=== PATIENT | female | born 1950 | race African-American/Black ===

== ENCOUNTER → 2017-06-13 | Outpatient (CLI) | payer MEDICARE, OTHER | END | disposition home or self-care (01) | LOC: KCIC MRI 09:49 | DX: S46.211A Strain of muscle, fascia and tendon of other parts of biceps, right arm, initial encounter (principal); S46.011A Strain of muscle(s) and tendon(s) of the rotator cuff of right shoulder, initial encounter; M19.011 Primary osteoarthritis, right shoulder; M25.411 Effusion, right shoulder; R60.0 Localized edema; Z91.81 History of falling | CPT/HCPCS: 73221 ==

== ENCOUNTER → 2018-07-31 | Outpatient (CLI) | payer MEDICARE, OTHER ==
[2015-05-23 11:15] VITALS: BP 157/89
[~2018-07-31] MED LIST: ALPR0.5T PO; ALPR0.5T6 PO; ASPI-482 PO; CITA20TA6 PO; ENAL20TA PO; HYDR-2765 PO; METO-239 PO; SIMV40TA3 PO
--- NOTE | 2018-07-31 18:00 | RAD ---
3 view study of the right knee Clinical indications: Osteoarthritis. Chronic right knee pain. FINDINGS: No acute fracture or dislocation or lytic process is seen. There is moderate degenerative spurring and mild joint space narrowing of the medial tibiofemoral joint compartment. There is moderate degenerative spurring and mild joint space narrowing of the patellofemoral joint compartment. There is moderate spurring of the lateral tibiofemoral joint compartment without joint space narrowing. Small right knee joint effusion is seen. IMPRESSION: Tricompartmental primary degenerative osteoarthritis of the right knee. Electronically signed by: Tirso Ventura MD (07/31/2018 5:57 PM) [place] [id number]
== END | disposition home or self-care (01) ==
LOC: RAD 11:56
PROVIDERS: ATTEND Internal Medicine
DX: M25.461 Effusion, right knee (principal); M17.11 Unilateral primary osteoarthritis, right knee; M76.891 Other specified enthesopathies of right lower limb, excluding foot
CPT/HCPCS: 73562

== ENCOUNTER 2020-02-01 14:42 | Emergency (ER) | payer MEDICARE, OTHER ==
[~2020-02-01] VITALS: Ht 157.5 cm; Wt 95.0 kg
[~2020-02-01 14:42] MED LIST changes: -ENAL20TA PO; +ENAL20TA10 PO; +SIMV40TA18 PO; -SIMV40TA3 PO
[2020-02-01] MEDS ORDERED: ASPIRIN 325 MG TABLET PO ONE (15:15)
[2020-02-01 15:20] LABS: BASO % 1 % (0-3); EOS # 0.2 x10^3/uL (0.0-0.7); EOS % 4 % (0-3); HEMOGLOBIN 12.3 g/dL (12.0-15.5); LYMPH # 1.9 x10^3/uL (1.0-4.8); LYMPH % 35 % (24-48); MEAN CORPUSCULAR HEMOGLOBIN 27 pg (25-35); MEAN CORPUSCULAR HGB CONC 32 g/dL (31-37); MEAN CORPUSCULAR VOLUME 82 fL (79-100); MONO # 0.6 x10^3/uL (0.0-1.1); MONO % 11 % (0-9); NEUT # 2.7 x10^3/uL (1.8-7.7); NEUT % 50 % (31-73); PLATELET COUNT 209 x10^3/uL (140-400); RED BLOOD COUNT 4.64 x10^6/uL (3.50-5.40); RED CELL DISTRIBUTION WIDTH 15.1 % (11.5-14.5); WHITE BLOOD COUNT 5.5 x10^3/uL (4.0-11.0)
[2020-02-01 15:49] LABS: CREATININE 1.6 mg/dL (0.6-1.0); GFR 38.8; POTASSIUM 3.9 mmol/L (3.5-5.1)
[2020-02-01 15:54] LABS: ALBUMIN 3.6 g/dL (3.4-5.0); ALBUMIN/GLOBULIN RATIO 0.9 (1.0-1.7); TOTAL BILIRUBIN 0.3 mg/dL (0.2-1.0); TOTAL PROTEIN 7.7 g/dL (6.4-8.2)
--- NOTE | 2020-02-01 15:58 | PHYS DOC ---
Past Medical History Past Medical History: High Cholesterol, Hypertension, [place] Past Surgical History: Knee Replacement, Other Additional Past Surgical Histo: cardiac balloon, left knee replacement, rotator cuff surgery Smoking Status: Former Smoker Alcohol Use: None Drug Use: None General Adult EDM: Chief Complaint: CHEST PAIN HPI: HPI: Patient is a 69 year old female who presents with chest pain that has been getting worse for a few days. Pt states that is hard to lay down because the pain is worse. Pt has had indigestion in the past and this does feel similar. Pt also states that the pain is worse with walking up steps and she also gets short of breath with it. The pain is also associated with tingling in the left arm to elbow and bilateral distal lower extremity. Pt also states that she missed 2 days of metoprolol and benazepril on Saturday and Saturday. Pt also complains of periodic blurry vision. Review of Systems: Review of Systems: Constitutional: Denies fever or chills Eyes: Denies redness or eye pain HENT: Denies nasal congestion or sore throat Respiratory: Denies cough or wheezing Cardiovascular: Denies palpitations, endorses chest pain GI: Denies abdominal pain, nausea, or vomiting : Denies dysuria or hematuria Musculoskeletal: Denies back pain or joint pain Integument: Denies rash or skin lesions Neurologic: Denies headache, focal weakness or sensory changes Complete systems were reviewed and found to be within normal limits, except as documented in this note. Heart Score: HEART Score for Chest Pain: HEART Score for Chest Pain Response (Comments) Value History Moderately Suspicious 1 ECG Normal 0 Age > 65 2 Risk Factors >3 Risk Factors or Hx CAD 2 Troponin < Normal Limit 0 Total 5 Risk Factors: Risk Factors: HTN, HLP, family history of CAD, obesity. Risk Scores: Score 0 - 3: 2.5% MACE over next 6 weeks - Discharge Home Score 4 - 6: 20.3% MACE over next 6 weeks - Admit for Clinical Observation Score 7 - 10: 72.7% MACE over next 6 weeks - Early Invasive Strategies Current Medications: Current Medications Medications (Trade) Dose Ordered Sig/Jennifer Start Time Stop Time Status Last Admin Dose Admin Aspirin (Willie Aspirin) 325 mg 1X ONCE 02/01/20 15:15 02/01/20 15:16 DC Allergies: Allergies: Allergies Coded Allergies Type Severity Reaction Last Updated Verified No Known Drug Allergies 02/01/20 No Physical Exam: PE: Constitutional: Well developed, well nourished, no acute distress, non-toxic appearance HENT: Normocephalic, atraumatic Eyes: Conjunctiva normal, no discharge Neck: Normal range of motion, no tenderness, supple Lungs & Thorax: No respiratory distress, equal chest rise and fall Abdomen: Soft, no tenderness Skin: Warm, dry, no erythema, no rash Back: No tenderness, no CVA tenderness Extremities: No tenderness, ROM intact, no edema Neurologic: Alert and oriented X 3, normal motor function, normal sensory function, no focal deficits noted Psychologic: Affect normal, judgment normal Cardiac: RRR w/ no murmurs, rubs, or gallops Current Patient Data: Labs: Laboratory Tests Test 02/01/20 15:05 White Blood Count 5.5 x10^3/uL (4.0-11.0) Red Blood Count 4.64 x10^6/uL (3.50-5.40) Hemoglobin 12.3 g/dL (12.0-15.5) Hematocrit 38.0 % (36.0-47.0) Mean Corpuscular Volume 82 fL (79-100) Mean Corpuscular Hemoglobin 27 pg (25-35) Mean Corpuscular Hemoglobin Concent 32 g/dL (31-37) Red Cell Distribution Width 15.1 % (11.5-14.5) H Platelet Count 209 x10^3/uL (140-400) Neutrophils (%) (Auto) 50 % (31-73) Lymphocytes (%) (Auto) 35 % (24-48) Monocytes (%) (Auto) 11 % (0-9) H Eosinophils (%) (Auto) 4 % (0-3) H Basophils (%) (Auto) 1 % (0-3) Neutrophils # (Auto) 2.7 x10^3/uL (1.8-7.7) Lymphocytes # (Auto) 1.9 x10^3/uL (1.0-4.8) Monocytes # (Auto) 0.6 x10^3/uL (0.0-1.1) Eosinophils # (Auto) 0.2 x10^3/uL (0.0-0.7) Basophils # (Auto) 0.0 x10^3/uL (0.0-0.2) Activated Partial Thromboplast Time 28 SEC (24-38) Laboratory Tests 02/01/20 15:05 Vital Signs: Vital Signs Date Time Temp Pulse Resp B/P (MAP) Pulse Ox O2 Delivery O2 Flow Rate FiO2 02/01/20 14:56 99.3 69 24 127/62 (83) 97 Room Air 99.3 EKG: EKG: @14:55 normal sinus rhythm with a rate of 65, T wave inversion in 3, QRS: 72ms QT/QTc: 376/404ms Radiology/Procedures: Radiology/Procedures: PROCEDURE: CHEST AP ONLY EXAM: CHEST 1 VIEW History: Left-sided chest pain COMPARISON: 05/22/2015 TECHNIQUE: Single portable radiograph of the chest FINDINGS: The cardiac silhouette is unremarkable. The lungs are clear bilaterally. The costophrenic sulci are clear and well demarcated. IMPRESSION: No radiographic evidence of an acute cardiopulmonary process. Electronically signed by: Gian Blue MD (02/01/2020 4:10 PM) [id number] Course & Med Decision Making: Course & Med Decision Making Pertinent Labs and Imaging studies reviewed. (See chart for details) 69 yo female presents with chest pain that has been getting worse for a few days. labs have been reviewed and posted. ECG and 2 troponins did not demonstrate any acute cardiac changes. Pt was offered to be admitted for further evaluation due to several risk factors but she declined. Patient stable for discharge with outpatient follow-up with PCP. Discussed findings and plan with patient, who acknowledges understanding and agreement. Taylor Disclaimer: Dragyifan Disclaimer: This electronic medical record was generated, in whole or in part, using a voice recognition dictation system. Departure Departure Impression: Primary Impression: Chest pain Qualified Codes: R07.9 - Chest pain, unspecified Disposition: 01 DC HOME SELF CARE/HOMELESS Condition: STABLE Referrals: MAYRA STRATTON MD (PCP) GRACIELA RINALDI MD, SCOTT S MD Patient Instructions: Chest Pain (Nonspecific), [id number], Gastritis, Adult, [id number] Scripts Famotidine (PEPCID) 20 Mg Tablet 20 MG PO BID, #20 TAB Prov: ANAND ANDERS DO 02/01/20 ANAND ANDERS DO Feb 01, 2020 15:58
[2020-02-01] MEDS ORDERED: FAMOTIDINE 20 MG/2 ML VIAL IVP ONE (16:00)
--- NOTE | 2020-02-01 16:13 | RAD ---
EXAM: CHEST 1 VIEW History: Left-sided chest pain COMPARISON: 05/22/2015 TECHNIQUE: Single portable radiograph of the chest FINDINGS: The cardiac silhouette is unremarkable. The lungs are clear bilaterally. The costophrenic sulci are clear and well demarcated. IMPRESSION: No radiographic evidence of an acute cardiopulmonary process. Electronically signed by: Gian Blue MD (02/01/2020 4:10 PM) [id number]
--- NOTE | 2020-02-01 16:17 | EKG ---
[facility] [address] [place] [address] Test Date: 2020-02-01 Test Time: 14:55:22 Pat Name: PERFECTO SHARMA Department: Room: Gender: F Collector: : 1950 Requested By: ANAND ANDERS Order Number: [id number] Reading MD: Measurements Intervals [place] Rate: 69 P: 38 [place]: 188 QRS: 11 QRSD: 72 T: 14 QT: 376 QTc: 404 Interpretive Statements SINUS RHYTHM QRS(T) CONTOUR ABNORMALITY CONSISTENT WITH INFERIOR INFARCT AGE UNDETERMINED ABNORMAL ECG RI6.01 No previous ECG available for comparison
[2020-02-01 17:24] VITALS: BP 148/78
[2020-02-01] MEDS ORDERED: FAMO-63 PO (17:52)
== END 2020-02-01 18:28 | disposition home or self-care (01) ==
LOC: ER 14:42
DX: R07.89 Other chest pain (principal); R06.02 Shortness of breath; H53.8 Other visual disturbances; E78.00 Pure hypercholesterolemia, unspecified; I10 Essential (primary) hypertension; I25.2 Old myocardial infarction; Z98.890 Other specified postprocedural states; Z87.891 Personal history of nicotine dependence
CPT/HCPCS: 36415; 71045; 80053; 83690; 83735; 83880; 84484; 85025; 85730; 93005; 96374; 99285; J3490

== ENCOUNTER 2021-05-18 18:08 | Inpatient (IN) | payer MEDICARE, OTHER ==
[~2021-05-18] VITALS: Ht 157.5 cm; Wt 94.3 kg
[~2021-05-18 18:08] MED LIST changes: +FAMO-63 PO
--- NOTE | 2021-05-18 18:27 | PHYS DOC ---
Past Medical History Past Medical History: High Cholesterol, Hypertension, [place] Past Surgical History: Hysterectomy, Knee Replacement, Other Additional Past Surgical Histo: cardiac balloon, bilat knee, rotator cuff surgery Smoking Status: Former Smoker Alcohol Use: None Drug Use: None General Adult EDM: Chief Complaint: CHEST PAIN HPI: HPI: Patient is a 71-year-old female who presents to the emergency department for left-sided chest pain that started 15 to 20 minutes prior to ER arrival. Patient describes the pain as a burning and constant pain. She rates it 8 out of 10. No radiation of pain, no treatment of pain. No alleviating or aggravating factors. Patient is also reporting nausea and shortness of breath, denies vomiting. She has a history of chronic chest pain. She reports that she had an episode of chest pain 2 days ago but was not evaluated for it but the chest pain has worsened today. Patient reports that she has had chest pain for "years." Patient reports that her primary care provider never called in and and she does not take nitroglycerin at home. Patient did take an 81 mg aspirin this morning. She has a history of hypertension, high cholesterol, [place]. She is a former smoker. Review of Systems: Review of Systems: Respiratory: See HPI Cardiovascular: See HPI GI: See HPI Heart Score: C/O Chest Pain: Yes HEART Score for Chest Pain: HEART Score for Chest Pain Response (Comments) Value History Moderately Suspicious 1 ECG Nonspecific Repolarizatio 1 Age > 65 2 Risk Factors >3 Risk Factors or Hx CAD 2 Troponin < Normal Limit 0 Total 6 Risk Factors: Risk Factors: DM, Current or recent (<one month) smoker, HTN, HLP, family history of CAD, obesity. Risk Scores: Score 0 - 3: 2.5% MACE over next 6 weeks - Discharge Home Score 4 - 6: 20.3% MACE over next 6 weeks - Admit for Clinical Observation Score 7 - 10: 72.7% MACE over next 6 weeks - Early Invasive Strategies Allergies: Allergies: Allergies Coded Allergies Type Severity Reaction Last Updated Verified No Known Drug Allergies 02/01/20 No Physical Exam: PE: Constitutional: Well developed, well nourished, no acute distress, non-toxic appearance. [] HENT: Normocephalic, atraumatic, bilateral external ears normal, oropharynx moist, no oral exudates, nose normal. [] Eyes: PERRL, EOMI, conjunctiva normal, no discharge. [] Neck: Normal range of motion, no stridor Cardiovascular:Heart rate regular rhythm, no murmur, chest pain not reproducible with palpation [] Lungs & Thorax: Bilateral breath sounds clear to auscultation [] Abdomen: Bowel sounds normal, soft, no tenderness, obese, no masses, no pulsatile masses. [] Skin: Warm, dry, no erythema, no rash. [] Back: Normal range of motion Extremities: No tenderness, no cyanosis, no clubbing, ROM intact, no edema. [] Neurologic: Alert and oriented X 3, normal motor function, normal sensory function, no focal deficits noted. [] Psychologic: Affect normal, judgement normal, mood normal. [] Current Patient Data: Labs: Laboratory Tests Test 05/18/21 18:20 White Blood Count 7.4 x10^3/uL Red Blood Count 5.28 x10^6/uL Hemoglobin 13.9 g/dL Hematocrit 43.7 % Mean Corpuscular Volume 83 fL Mean Corpuscular Hemoglobin 26 pg Mean Corpuscular Hemoglobin Concent 32 g/dL Red Cell Distribution Width 15.0 % Platelet Count 271 x10^3/uL Neutrophils (%) (Auto) 48 % Lymphocytes (%) (Auto) 37 % Monocytes (%) (Auto) 11 % Eosinophils (%) (Auto) 3 % Basophils (%) (Auto) 1 % Neutrophils # (Auto) 3.6 x10^3/uL Lymphocytes # (Auto) 2.8 x10^3/uL Monocytes # (Auto) 0.8 x10^3/uL Eosinophils # (Auto) 0.2 x10^3/uL Basophils # (Auto) 0.1 x10^3/uL Sodium Level 140 mmol/L Potassium Level 5.0 mmol/L Chloride Level 102 mmol/L Carbon Dioxide Level 26 mmol/L Anion Gap 12 Blood Urea Nitrogen 34 mg/dL Creatinine 2.4 mg/dL Estimated GFR (Cockcroft-Gault) 24.1 BUN/Creatinine Ratio 14 Glucose Level 118 mg/dL Calcium Level 8.9 mg/dL Total Bilirubin 0.4 mg/dL Aspartate Amino Transf (AST/SGOT) 11 U/L Alanine Aminotransferase (ALT/SGPT) 17 U/L Alkaline Phosphatase 115 U/L Troponin I High Sensitivity 6 ng/L Total Protein 8.9 g/dL Albumin 4.3 g/dL Albumin/Globulin Ratio 0.9 Current Medications Medications (Trade) Dose Ordered Sig/Jennifer Route PRN Reason Start Time Stop Time Status Last Admin Dose Admin Aspirin (Aspirin Chewable) 324 mg 1X ONCE PO 05/18/21 19:00 05/18/21 19:01 05/18/21 18:30 Nitroglycerin (Nitrostat) 0.4 mg PRN Q5MIN PRN SL CP RATING > 1/10 05/18/21 18:30 05/19/21 18:29 05/18/21 18:29 Vital Signs: Vital Signs Date Time Temp Pulse Resp B/P (MAP) Pulse Ox O2 Delivery O2 Flow Rate FiO2 05/18/21 18:14 98.0 83 28 206/90 (128) 100 Room Air 98.0 EKG: EKG: EKG performed by ER staff at 1812 shows sinus rhythm with a rate of 84, QTC of 426, no STEMI read by Dr. Edward at 1815 [] KG performed by ER staff at 1912 shows sinus rhythm with a rate of 65, QTC of 415, no STEMI read by Dr. Edward at 1928 Radiology/Procedures: Radiology/Procedures: []PROCEDURE: PORTABLE CHEST 1V Exam Date: 05/18/2021 6:27 PM XR CHEST 1V Indication: Reason: chest pain / Spl. Instructions: / History: . Comparison: February 01, 2020 FINDINGS/ IMPRESSION: The aorta is calcified. There is a moderate hiatal hernia. The cardiac silhouette and pulmonary vasculature are within normal limits. There is no focal consolidation, pleural effusion or pneumothorax. The visualized osseous structures are intact. Electronically signed by: Kaylee Yost MD (05/18/2021 7:20 PM) [facility] DICTATED and SIGNED BY: KAYLEE YOST MD DATE: 05/18/[id number] 0 Course & Med Decision Making: Course & Med Decision Making Pertinent Labs and Imaging studies reviewed. (See chart for details) [] Patient presents to the emergency department for left-sided chest pain that started 20 minutes prior to arrival. Patient reports a history of chronic chest pain. She has a history of high cholesterol, hypertension, [place] and is a former smoker. Patient took 81 mg aspirin this morning. Work-up in the ER consisted of blood work, EKG and chest x-ray. Patient treated with aspirin and nitroglycerin. Patient is hypertensive with a blood pressure of 208/90. Patient's heart score is 6. Patient CBC is unremarkable. Patient's BUN is 34, creatinine 2.4. It appears that patient's baseline creatinine is 1.4-1.6 indicating acute kidney injury. Patient does not have an elevated troponin. Patient reports that her chest pain has resolved after treatment with aspirin and nitroglycerin. Patient will need to be admitted to the hospital for chest pain observation with cardiology consultation which was ordered. I discussed patient's findings with her and the family member who is at her bedside and she is agreeable to admission. I discussed patient's case with Dr. Long And he agreed to admit the patient under his services for chest pain and acute kidney injury. Taylor Disclaimer: Taylor Disclaimer: This electronic medical record was generated, in whole or in part, using a voice recognition dictation system. Departure Departure Impression: Primary Impression: Chest pain Qualified Codes: R07.9 - Chest pain, unspecified Additional Impression: SVETLANA (acute kidney injury) Disposition: ADMITTED INPATIENT Admitting Physician: NATE Condition: STABLE Referrals: MAYRA STRATTON MD (PCP) BRAN DIXON APRN May 18, 2021 18:27
[2021-05-18] MEDS ORDERED: NITROGLYCERIN SUBLINGUAL 0.4 MG BOTTLE OF 25. SL PRN ×3 (18:30→19:30)
[2021-05-18 18:32] LABS: BASO # 0.1 x10^3/uL (0.0-0.2); BASO % 1 % (0-3); EOS # 0.2 x10^3/uL (0.0-0.7); EOS % 3 % (0-3); HEMATOCRIT 43.7 % (36.0-47.0); HEMOGLOBIN 13.9 g/dL (12.0-15.5); LYMPH # 2.8 x10^3/uL (1.0-4.8); LYMPH % 37 % (24-48); MEAN CORPUSCULAR HEMOGLOBIN 26 pg (25-35); MEAN CORPUSCULAR HGB CONC 32 g/dL (31-37); MEAN CORPUSCULAR VOLUME 83 fL (79-100); MONO # 0.8 x10^3/uL (0.0-1.1); MONO % 11 % (0-9); NEUT # 3.6 x10^3/uL (1.8-7.7); NEUT % 48 % (31-73); PLATELET COUNT 271 x10^3/uL (140-400); RED BLOOD COUNT 5.28 x10^6/uL (3.50-5.40); WHITE BLOOD COUNT 7.4 x10^3/uL (4.0-11.0)
[2021-05-18 18:40] LABS: CALCIUM 8.9 mg/dL (8.5-10.1); CREATININE 2.4 mg/dL (0.6-1.0); GFR 24.1
[2021-05-18 18:46] LABS: ALBUMIN 4.3 g/dL (3.4-5.0); ALBUMIN/GLOBULIN RATIO 0.9 (1.0-1.7); TOTAL BILIRUBIN 0.4 mg/dL (0.2-1.0); TOTAL PROTEIN 8.9 g/dL (6.4-8.2)
[2021-05-18] MEDS ORDERED: ASPIRIN CHEWABLE 81 MG TABLET. PO ONE (19:00)
[2021-05-18] MEDS ORDERED: MORPHINE SULFATE 2 MG/ML INJ. IVP PRN (19:15)
--- NOTE | 2021-05-18 19:22 | RAD ---
Exam Date: 05/18/2021 6:27 PM XR CHEST 1V Indication: Reason: chest pain / Spl. Instructions: / History: . Comparison: February 01, 2020 FINDINGS/ IMPRESSION: The aorta is calcified. There is a moderate hiatal hernia. The cardiac silhouette and pulmonary vasculature are within normal limits. There is no focal consolidation, pleural effusion or pneumothorax. The visualized osseous structures are intact. Electronically signed by: Robin Yost MD (05/18/2021 7:20 PM) [place]
[2021-05-18] MEDS ORDERED: ZOLPIDEM 5 MG TABLET. PO PRN (19:30)
[2021-05-18] MEDS ORDERED: ELECTROLYTE (NON-ICU) PROTOCOL. MC PRN (19:30)
[2021-05-18] MEDS ORDERED: ONDANSETRON PF 4 MG/2 ML VIAL. IVP PRN (19:30)
[2021-05-18] MEDS ORDERED: ACETAMINOPHEN 325 MG TABLET. PO PRN (19:30)
[2021-05-18] MEDS ORDERED: HYDROcodone/APAP 7.5/325MG 1 TAB TABLET PO PRN (19:30)
[2021-05-18] MEDS ORDERED: oxyCODONE/APAP 5/325 1 TAB TABLET PO PRN ×2 (19:30)
[2021-05-18 20:17] VITALS: BP 154/72
[2021-05-18] MEDS: SENNOSIDES/DOCUSATE 8.6/50MG TABLET. PO SCH (21:00)
[2021-05-18] MEDS ORDERED: SIMVASTATIN 40 MG TABLET. PO SCH (21:00)
[2021-05-18] MEDS ORDERED: CELE200C PO (21:18)
[2021-05-18] MEDS ORDERED: ASPI-630 PO (21:18)
[2021-05-18] MEDS ORDERED: FLUT9.9S NS (21:18)
[2021-05-18] MEDS ORDERED: ROSU10TA26 PO (21:18)
[2021-05-18] MEDS ORDERED: SOLI10TA2 PO (21:18)
[2021-05-18] MEDS: FAMOTIDINE 20 MG TABLET. PO SCH (21:41)
[2021-05-18] MEDS: ALPRAZolam 0.5 MG TABLET PO SCH (21:41)
[2021-05-18] MEDS: HEPARIN for SUB-Q USE 5,000 UNIT/ML VIAL. SQ SCH (21:44)
[2021-05-18 23:29] VITALS: BP 127/62
[2021-05-19 03:05] VITALS: BP 134/59
[2021-05-19 04:50] LABS: BASO % 1 % (0-3); EOS # 0.2 x10^3/uL (0.0-0.7); EOS % 3 % (0-3); HEMATOCRIT 36.1 % (36.0-47.0); HEMOGLOBIN 11.7 g/dL (12.0-15.5); LYMPH # 2.4 x10^3/uL (1.0-4.8); LYMPH % 41 % (24-48); MEAN CORPUSCULAR HEMOGLOBIN 27 pg (25-35); MEAN CORPUSCULAR HGB CONC 32 g/dL (31-37); MEAN CORPUSCULAR VOLUME 83 fL (79-100); MONO # 0.5 x10^3/uL (0.0-1.1); MONO % 10 % (0-9); NEUT # 2.6 x10^3/uL (1.8-7.7); NEUT % 46 % (31-73); PLATELET COUNT 214 x10^3/uL (140-400); RED BLOOD COUNT 4.37 x10^6/uL (3.50-5.40); WHITE BLOOD COUNT 5.7 x10^3/uL (4.0-11.0)
[2021-05-19 05:12] LABS: ALBUMIN 3.5 g/dL (3.4-5.0); CALCIUM 8.6 mg/dL (8.5-10.1); CREATININE 2.3 mg/dL (0.6-1.0); GFR 25.4; POTASSIUM 5.8 mmol/L (3.5-5.1); TOTAL BILIRUBIN 0.2 mg/dL (0.2-1.0); TOTAL PROTEIN 7.1 g/dL (6.4-8.2)
[2021-05-19] MEDS: HEPARIN for SUB-Q USE 5,000 UNIT/ML VIAL. SQ SCH ×3 (06:17→19:35)
[2021-05-19 07:00] VITALS: BP 132/59
--- NOTE | 2021-05-19 07:33 | EKG ---
[facility] [address] [place] [address] Test Date: 2021-05-18 Test Time: 19:13:02 Pat Name: PERFECTO SHARMA Department: Room: [facility] Gender: F Tool Marker: : 1950 Requested By: BRAN DIXON Order Number: [id number] Reading MD: Servando Williamson Measurements Intervals [place] Rate: 65 P: 39 [place]: 200 QRS: 9 QRSD: 80 T: 24 QT: 394 QTc: 415 Interpretive Statements SINUS RHYTHM NON SPECIFIC T WAVE CHANGES Electronically Signed On 05-19-2021 16:29:03 TYING IN MACHINE OPERATOR by Servando Williamson
--- NOTE | 2021-05-19 07:34 | EKG ---
[facility] [address] [place] [address] Test Date: 2021-05-18 Test Time: 18:13:38 Pat Name: PERFECTO SHARMA Department: Room: [facility] Gender: F Information Security: : 1950 Requested By: BRAN DIXON Order Number: [id number] Reading MD: Servando Williamson Measurements Intervals [place] Rate: 84 P: 45 [place]: 194 QRS: 20 QRSD: 76 T: 27 QT: 358 QTc: 426 Interpretive Statements SINUS RHYTHM Electronically Signed On 05-19-2021 16:29:56 CROCHET MACHINE OPERATOR by Servando Williamson
[2021-05-19] MEDS: ALPRAZolam 0.5 MG TABLET PO SCH ×2 (08:00→19:30)
[2021-05-19] MEDS: FAMOTIDINE 20 MG TABLET. PO SCH (08:01)
[2021-05-19] MEDS: ASPIRIN ENTERIC COATED 81 MG TABLET.DR. PO SCH (08:01)
[2021-05-19] MEDS: METOPROLOL SUCC 24HR ER 25 MG TAB.ER.24H. PO SCH (08:01)
[2021-05-19] MEDS: SIMVASTATIN 40 MG TABLET. PO SCH (08:01)
[2021-05-19] MEDS: CITALOPRAM 20 MG TABLET. PO SCH (08:01)
[2021-05-19] MEDS: SENNOSIDES/DOCUSATE 8.6/50MG TABLET. PO SCH ×2 (08:01→19:45)
--- NOTE | 2021-05-19 10:41 | RAD ---
EXAM: RENAL ULTRASOUND CLINICAL HISTORY: Acute renal failure COMPARISON: None available. TECHNIQUE: Grayscale and color Doppler ultrasound examination of the bilateral kidneys and urinary bl adder was performed. FINDINGS: Evaluation of the kidneys is mildly limited due to shadowing from bowel gas. The right kidney measure s approximately 8.4 x 4.5 x 3.7 cm. The left kidney measures approximately 9.1 x 3.5 x 4.7 cm. There is no hydronephrosis. Renal cortical thickness and echogenicity is normal. The bladder is normal. IMPRESSION: No hydronephrosis. Electronically signed by: Sheree Gong MD (05/19/2021 10:38 AM) [id number]
[2021-05-19] MEDS ORDERED: IV NORMAL SALINE 1000ML BAG 1,000 ML IV ONE (10:45)
[2021-05-19 11:00] VITALS: BP 106/59
[2021-05-19 11:25] LABS: BILIRUBIN,URINE NEGATIVE (NEG); CLARITY,URINE CLEAR; COLOR,URINE YELLOW; PH,URINE 6.5 (<5.0-8.0); PROTEIN,URINE NEGATIVE (NEG-TRACE); UROBILINOGEN,URINE 0.2 mg/dL (0.2 mg/dL)
[2021-05-19 11:26] LABS: NITRITE,URINE NEGATIVE (NEG)
[2021-05-19 11:29] LABS: RBC,URINE 0 /HPF (0-2)
[2021-05-19 11:30] LABS: BACTERIA,URINE 0 /HPF (0-FEW)
--- NOTE | 2021-05-19 12:34 | PDOC1 ---
History and Physical Date of Admission Date of Admission DATE: 05/19/21 TIME: 12:32 History of Present Illness History of Present Illness Patient is a 71-year-old female who presents to the emergency department for left-sided chest pain that started 15 to 20 minutes prior to ER arrival. Patient describes the pain as a burning and constant pain. She rates it 8 out of 10. No radiation of pain, no treatment of pain. No alleviating or aggravating factors. Patient is also reporting nausea and shortness of breath, denies vomiting. She has a history of chronic chest pain. She reports that she had an episode of chest pain 2 days ago but was not evaluated for it but the chest pain has worsened today. Patient reports that she has had chest pain for "years." Patient reports that her primary care provider never called in and and she does not take nitroglycerin at home. Patient did take an 81 mg aspirin this morning. She has a history of hypertension, high cholesterol, VT. She is a former smoker. Social History Smoke: No ALCOHOL: none Drugs: None Current Problem List Problem List Problems Medical Problems: (1) SVETLANA (acute kidney injury) Status: Acute (2) Chest pain Status: Acute Current Medications Current Medications Current Medications Aspirin (Aspirin Chewable) 324 mg 1X ONCE PO Last administered on 05/18/21at 18:30; Start 05/18/21 at 19:00; Stop 05/18/21 at 19:01; Status DC Nitroglycerin (Nitrostat) 0.4 mg PRN Q5MIN PRN SL CP RATING > 1/10 Last administered on 05/18/21at 18:29; Start 05/18/21 at 18:30; Stop 05/18/21 at 19:26; Status DC Morphine Sulfate (Morphine Sulfate) 2 mg PRN Q2HR PRN IVP PAIN; Start 05/18/21 at 19:15; Stop 05/19/21 at 19:14 Nitroglycerin (Nitrostat) 0.4 mg PRN Q5MIN PRN SL CHEST PAIN; Start 05/18/21 at 19:15; Stop 05/18/21 at 19:30; Status DC Alprazolam (Xanax) 0.5 mg BID PO Last administered on 05/19/21at 08:00; Start 05/18/21 at 21:00 Aspirin (Ecotrin) 81 mg DAILY PO Last administered on 05/19/21at 08:01; Start 05/19/21 at 09:00 Citalopram Hydrobromide (CeleXA) 20 mg DAILY PO Last administered on 05/19/21at 08:01; Start 05/19/21 at 09:00 Famotidine (Pepcid) 20 mg BID PO Last administered on 05/19/21at 08:01; Start 05/18/21 at 21:00; Stop 05/19/21 at 09:14; Status DC Acetaminophen/ Hydrocodone Bitart (Lortab 7.5/325) 1 tab PRN Q6HRS PRN PO MILD PAIN 1-3; Start 05/18/21 at 19:30 Metoprolol Succinate (Toprol Xl) 50 mg DAILY PO Last administered on 05/19/21at 08:01; Start 05/19/21 at 09:00 Simvastatin (Zocor) 40 mg HS PO ; Start 05/18/21 at 21:00; Stop 05/18/21 at 21:27; Status DC Nitroglycerin (Nitrostat) 0.4 mg PRN Q5MIN PRN SL CHEST PAIN; Start 05/18/21 at 19:30 Ondansetron HCl (Zofran) 4 mg PRN Q6HRS PRN IVP NAUSEA/VOMITING; Start 05/18/21 at 19:30 Calcium Carbonate/ Glycine (Tums) 500 mg PRN Q3HRS PRN PO UPSET STOMACH; Start 05/18/21 at 19:30 Zolpidem Tartrate (Ambien) 5 mg PRN QHS PRN PO INSOMNIA, MAY REPEAT IN 1HR; Start 05/18/21 at 19:30 Info (Non-Icu Electrolyte Protocol) 1 ea PRN DAILY PRN MC SEE COMMENTS; Start 05/18/21 at 19:30 Oxycodone/ Acetaminophen (Percocet 5/325) 1 tab PRN Q4HRS PRN PO MODERATE PAIN; Start 05/18/21 at 19:30 Oxycodone/ Acetaminophen (Percocet 5/325) 2 tab PRN Q4HRS PRN PO MODERATE PAIN, SEVERE PAIN; Start 05/18/21 at 19:30 Acetaminophen (Tylenol) 650 mg PRN Q6HRS PRN PO Headaches, Temp > 101.5F; Start 05/18/21 at 19:30 Senna/Docusate Sodium (Senna Plus) 1 tab BID PO Last administered on 05/19/21at 08:01; Start 05/18/21 at 21:00 Heparin Sodium (Porcine) (Heparin Sodium) 5,000 unit Q8HRS SQ Last administered on 05/19/21at 06:17; Start 05/18/21 at 22:00 Simvastatin (Zocor) 40 mg DAILY PO Last administered on 05/19/21at 08:01; Start 05/19/21 at 09:00 Famotidine (Pepcid) 20 mg DAILY PO ; Start 05/20/21 at 09:00 Sodium Chloride 1,000 ml @ 100 mls/hr 1X ONCE IV Last administered on 05/19/21at 10:59; Start 05/19/21 at 10:45; Stop 05/19/21 at 20:44 Active Scripts Active Pepcid (Famotidine) 20 Mg Tablet 20 Mg PO BID Reported Celebrex (Celecoxib) 200 Mg Capsule 2 Cap PO DAILY Vesicare (Solifenacin Succinate) 10 Mg Tablet 10 Mg PO DAILY Rosuvastatin Calcium 10 Mg Tablet 1 Tab PO QHS Flonase Allergy Relief (Fluticasone Propionate) 9.9 Ml [place].susp 2 Sprays NS DAILY Hydrocodone-Apap 7.5-325 (Hydrocodone Bit/Acetaminophen) 1 Each Tablet 1 Tab PO PRN Q6HRS PRN Xanax (Alprazolam) 0.5 Mg Tablet 0.5 Mg PO PRN Q4HRS PRN Aspir 81 (Aspirin) 81 Mg Tablet.dr 81 Mg PO DAILY Enalapril Maleate 20 Mg Tablet 20 Mg PO DAILY Citalopram Hbr (Citalopram Hydrobromide) 20 Mg Tablet 20 Mg PO DAILY Simvastatin 40 Mg Tablet 40 Mg PO DAILY Alprazolam 0.5 Mg Tablet 0.5 Mg PO BID Metoprolol Succinate ( Xl ) (Metoprolol Succinate) 25 Mg Tab.er.24h 50 Mg PO DAILY Allergies Allergies: Coded Allergies: No Known Drug Allergies (Unverified , 05/18/21) ROS General: YES: Chills, Fatigue; No: Night Sweats, Malaise, Appetite, Other PSYCHOLOGICAL ROS: No: Anxiety, Behavioral Disorder, Concentration difficultie, Decreased libido, Depression, Disorientation, Hallucinations, Hostility, Irritablity, Memory difficulties, Mood Swings, Obsessive thoughts, Physical abuse, Sexual abuse, Sleep disturbances, Suicidal ideation, Other Eyes: No Blurry vision, No Decreased vision, No Double vision, No Dry eyes, No Excessive tearing, No Eye Pain, No Itchy Eyes, No Loss of vision, No Photophobia, No Scotomata, No Uses contacts, No Uses glasses, No Other HEENT: No: Heacaches, Visual Changes, Hearing change, Nasal congestion, Nasal discharge, Oral lesions, Sinus pain, Sore Throat, Epistaxis, Sneezing, Snoring, Tinnitus, Vertigo, Vocal changes, Other Respiratory: No: Cough, Hemoptysis, Orthopnea, Pleuritic Pain, Shortness of breath, SOB with excertion, Sputum Changes, Stridor, Tachypnea, Wheezing, Other Cardiovascular: yes Chest Pain; No Palpitations, No Orthopnea, No Paroxysmal Noc. Dyspnea, No Edema, No Lt Headedness, No Other Genitourinary: No Dysuria, No Frequency, No Incontinence, No Hematuria, No Retention, No Discharge, No Urgency, No Pain, No Flank Pain, No Other, No , No , No , No , No , No , No Musculoskeletal: Yes Joint Pain; No Gait Disturbance, No Joint Stiffness, No Joint Swelling, No Muscle Pain, No Muscular Weakness, No Pain In:, No Swelling In:, No Other Neurological: No Behavorial Changes, No Bowel/Bladder ControlChng, No Confusion, No Dizziness, No Gait Disturbance, No Headaches, No Impaired Coord/balance, No Memory Loss, No Numbness/Tingling, No Seizures, No Speech Problems, No Tremors, No Visual Changes, No Weakness, No Other Skin: No Dry Skin, No Eczema, No Hair Changes, No Lumps, No Mole Changes, No Mottling, No Nail Changes, No Pruritus, No Rash, No Skin Lesion Changes, No Other, No Acne Physical Exam General: Alert, Oriented X3, Cooperative, No acute distress HEENT: PERRLA Lungs: Clear to auscultation Heart: RRR, no murmurs Extremities: No edema Skin: No significant lesion Neuro: Normal speech, Normal tone, Cranial nerves 3-12 NL Psych/Mental Status: Mental status NL, Mood NL Vitals Vitals Vital Signs Date Time Temp Pulse Resp B/P (MAP) Pulse Ox O2 Delivery O2 Flow Rate FiO2 05/19/21 11:00 97.8 53 16 106/59 (75) 100 Room Air 97.8 Labs Labs Laboratory Tests Test 05/18/21 18:20 05/19/21 00:45 05/19/21 01:30 05/19/21 11:00 White Blood Count 7.4 x10^3/uL (4.0-11.0) 5.7 x10^3/uL (4.0-11.0) Red Blood Count 5.28 x10^6/uL (3.50-5.40) 4.37 x10^6/uL (3.50-5.40) Hemoglobin 13.9 g/dL (12.0-15.5) 11.7 g/dL (12.0-15.5) Hematocrit 43.7 % (36.0-47.0) 36.1 % (36.0-47.0) Mean Corpuscular Volume 83 fL (79-100) 83 fL (79-100) Mean Corpuscular Hemoglobin 26 pg (25-35) 27 pg (25-35) Mean Corpuscular Hemoglobin Concent 32 g/dL (31-37) 32 g/dL (31-37) Red Cell Distribution Width 15.0 % (11.5-14.5) 15.0 % (11.5-14.5) Platelet Count 271 x10^3/uL (140-400) 214 x10^3/uL (140-400) Neutrophils (%) (Auto) 48 % (31-73) 46 % (31-73) Lymphocytes (%) (Auto) 37 % (24-48) 41 % (24-48) Monocytes (%) (Auto) 11 % (0-9) 10 % (0-9) Eosinophils (%) (Auto) 3 % (0-3) 3 % (0-3) Basophils (%) (Auto) 1 % (0-3) 1 % (0-3) Neutrophils # (Auto) 3.6 x10^3/uL (1.8-7.7) 2.6 x10^3/uL (1.8-7.7) Lymphocytes # (Auto) 2.8 x10^3/uL (1.0-4.8) 2.4 x10^3/uL (1.0-4.8) Monocytes # (Auto) 0.8 x10^3/uL (0.0-1.1) 0.5 x10^3/uL (0.0-1.1) Eosinophils # (Auto) 0.2 x10^3/uL (0.0-0.7) 0.2 x10^3/uL (0.0-0.7) Basophils # (Auto) 0.1 x10^3/uL (0.0-0.2) 0.0 x10^3/uL (0.0-0.2) Sodium Level 140 mmol/L (136-145) 139 mmol/L (136-145) Potassium Level 5.0 mmol/L (3.5-5.1) 5.8 mmol/L (3.5-5.1) Chloride Level 102 mmol/L (98-107) 104 mmol/L (98-107) Carbon Dioxide Level 26 mmol/L (21-32) 27 mmol/L (21-32) Anion Gap 12 (6-14) 8 (6-14) Blood Urea Nitrogen 34 mg/dL (7-20) 34 mg/dL (7-20) Creatinine 2.4 mg/dL (0.6-1.0) 2.3 mg/dL (0.6-1.0) Estimated GFR (Cockcroft-Gault) 24.1 25.4 BUN/Creatinine Ratio 14 (6-20) 15 (6-20) Glucose Level 118 mg/dL (70-99) 80 mg/dL (70-99) Calcium Level 8.9 mg/dL (8.5-10.1) 8.6 mg/dL (8.5-10.1) Total Bilirubin 0.4 mg/dL (0.2-1.0) 0.2 mg/dL (0.2-1.0) Aspartate Amino Transf (AST/SGOT) 11 U/L (15-37) 14 U/L (15-37) Alanine Aminotransferase (ALT/SGPT) 17 U/L (14-59) 15 U/L (14-59) Alkaline Phosphatase 115 U/L (46-116) 98 U/L (46-116) Troponin I High Sensitivity 6 ng/L (4-50) 12 ng/L (4-50) Total Protein 8.9 g/dL (6.4-8.2) 7.1 g/dL (6.4-8.2) Albumin 4.3 g/dL (3.4-5.0) 3.5 g/dL (3.4-5.0) Albumin/Globulin Ratio 0.9 (1.0-1.7) 1.0 (1.0-1.7) Urine Collection Type Unknown Urine Color Yellow Urine Clarity Clear Urine pH 6.5 (<5.0-8.0) Urine Specific [place] 1.020 (1.000-1.030) Urine Protein Negative mg/dL (NEG-TRACE) Urine Glucose (UA) Negative mg/dL (NEG) Urine Ketones (Stick) Negative mg/dL (NEG) Urine Blood Negative (NEG) Urine Nitrite Negative (NEG) Urine Bilirubin Negative (NEG) Urine Urobilinogen Dipstick 0.2 mg/dL (0.2 mg/dL) Urine Leukocyte Esterase Trace (NEG) Urine RBC 0 /HPF (0-2) Urine WBC 1-4 /HPF (0-4) Urine Squamous Epithelial Cells Few /LPF Urine Bacteria 0 /HPF (0-FEW) Laboratory Tests Test 05/18/21 18:20 05/19/21 00:45 05/19/21 01:30 05/19/21 11:00 White Blood Count 7.4 x10^3/uL (4.0-11.0) 5.7 x10^3/uL (4.0-11.0) Red Blood Count 5.28 x10^6/uL (3.50-5.40) 4.37 x10^6/uL (3.50-5.40) Hemoglobin 13.9 g/dL (12.0-15.5) 11.7 g/dL (12.0-15.5) Hematocrit 43.7 % (36.0-47.0) 36.1 % (36.0-47.0) Mean Corpuscular Volume 83 fL (79-100) 83 fL (79-100) Mean Corpuscular Hemoglobin 26 pg (25-35) 27 pg (25-35) Mean Corpuscular Hemoglobin Concent 32 g/dL (31-37) 32 g/dL (31-37) Red Cell Distribution Width 15.0 % (11.5-14.5) 15.0 % (11.5-14.5) Platelet Count 271 x10^3/uL (140-400) 214 x10^3/uL (140-400) Neutrophils (%) (Auto) 48 % (31-73) 46 % (31-73) Lymphocytes (%) (Auto) 37 % (24-48) 41 % (24-48) Monocytes (%) (Auto) 11 % (0-9) 10 % (0-9) Eosinophils (%) (Auto) 3 % (0-3) 3 % (0-3) Basophils (%) (Auto) 1 % (0-3) 1 % (0-3) Neutrophils # (Auto) 3.6 x10^3/uL (1.8-7.7) 2.6 x10^3/uL (1.8-7.7) Lymphocytes # (Auto) 2.8 x10^3/uL (1.0-4.8) 2.4 x10^3/uL (1.0-4.8) Monocytes # (Auto) 0.8 x10^3/uL (0.0-1.1) 0.5 x10^3/uL (0.0-1.1) Eosinophils # (Auto) 0.2 x10^3/uL (0.0-0.7) 0.2 x10^3/uL (0.0-0.7) Basophils # (Auto) 0.1 x10^3/uL (0.0-0.2) 0.0 x10^3/uL (0.0-0.2) Sodium Level 140 mmol/L (136-145) 139 mmol/L (136-145) Potassium Level 5.0 mmol/L (3.5-5.1) 5.8 mmol/L (3.5-5.1) Chloride Level 102 mmol/L (98-107) 104 mmol/L (98-107) Carbon Dioxide Level 26 mmol/L (21-32) 27 mmol/L (21-32) Anion Gap 12 (6-14) 8 (6-14) Blood Urea Nitrogen 34 mg/dL (7-20) 34 mg/dL (7-20) Creatinine 2.4 mg/dL (0.6-1.0) 2.3 mg/dL (0.6-1.0) Estimated GFR (Cockcroft-Gault) 24.1 25.4 BUN/Creatinine Ratio 14 (6-20) 15 (6-20) Glucose Level 118 mg/dL (70-99) 80 mg/dL (70-99) Calcium Level 8.9 mg/dL (8.5-10.1) 8.6 mg/dL (8.5-10.1) Total Bilirubin 0.4 mg/dL (0.2-1.0) 0.2 mg/dL (0.2-1.0) Aspartate Amino Transf (AST/SGOT) 11 U/L (15-37) 14 U/L (15-37) Alanine Aminotransferase (ALT/SGPT) 17 U/L (14-59) 15 U/L (14-59) Alkaline Phosphatase 115 U/L (46-116) 98 U/L (46-116) Troponin I High Sensitivity 6 ng/L (4-50) 12 ng/L (4-50) Total Protein 8.9 g/dL (6.4-8.2) 7.1 g/dL (6.4-8.2) Albumin 4.3 g/dL (3.4-5.0) 3.5 g/dL (3.4-5.0) Albumin/Globulin Ratio 0.9 (1.0-1.7) 1.0 (1.0-1.7) Urine Collection Type Unknown Urine Color Yellow Urine Clarity Clear Urine pH 6.5 (<5.0-8.0) Urine Specific [place] 1.020 (1.000-1.030) Urine Protein Negative mg/dL (NEG-TRACE) Urine Glucose (UA) Negative mg/dL (NEG) Urine Ketones (Stick) Negative mg/dL (NEG) Urine Blood Negative (NEG) Urine Nitrite Negative (NEG) Urine Bilirubin Negative (NEG) Urine Urobilinogen Dipstick 0.2 mg/dL (0.2 mg/dL) Urine Leukocyte Esterase Trace (NEG) Urine RBC 0 /HPF (0-2) Urine WBC 1-4 /HPF (0-4) Urine Squamous Epithelial Cells Few /LPF Urine Bacteria 0 /HPF (0-FEW) VTE Prophylaxis Ordered VTE Prophylaxis Devices: No VTE Pharmacological Prophylaxi: Yes Assessment/Plan Assessment/Plan angina, with exertion, hx CAD, negative stress test obese, BMI 37 acute renal failure, hyperkalemia, IV flud, renal consult, US, UA admit Justifications for Admission Other Justification JUDE JOSEPH MD May 19, 2021 12:34
--- NOTE | 2021-05-19 12:53 | CONS ---
DATE OF CONSULTATION: 05/19/2021 REASON FOR CONSULTATION: Chest pain. HISTORY OF PRESENT ILLNESS: The patient is a pleasant 71-year-old woman with past medical history as noted below, who presents to the hospital with 1 year of progressive exertional chest burning. She reports that she previously had a stress test at [facility] approximately 1 year ago for similar symptoms and at that time was told that there were no significant abnormalities. Nonetheless, since then with basic activities such as doing her laundry or going up and down stairs, she has exertional chest discomfort and when she arrived to the ER, she was noted to be significantly hypertensive with systolic blood pressure greater than 200 and she was admitted to the hospital for further evaluation and treatment. The patient denies any syncope, palpitations, orthopnea or PND. She reports compliance with her medications. Initial EKG did not reveal any significant pathology. Cardiac enzymes are negative x2. PAST MEDICAL HISTORY: 1. Hypertension. 2. Dyslipidemia. 3. Prior history of coronary artery disease, status post angioplasty in 1994 according to the patient. SOCIAL HISTORY: The patient lives with her granddaughter. Denies any alcohol, tobacco or illicit drug use. FAMILY HISTORY: Noncontributory. ALLERGIES: No known drug allergies. CURRENT CARDIOVASCULAR MEDICATIONS: As follows: 1. Simvastatin 40 mg daily. 2. Toprol-XL 50 mg daily. 3. Aspirin 81 mg daily. 4. Heparin subcutaneous every 8 hours. REVIEW OF SYSTEMS: Negative for 10 out of 14 systems reviewed, unless otherwise mentioned above in HPI. PHYSICAL EXAMINATION: VITAL SIGNS: Afebrile, 53, 16, 106/59, 100% on room air. GENERAL: She is alert and oriented, in no acute distress. HEAD AND NECK: Unremarkable. CARDIAC: Regular rate and rhythm without murmurs, rubs or gallops. LUNGS: Clear to auscultation bilaterally. ABDOMEN: Soft, nontender, nondistended. EXTREMITIES: No clubbing, cyanosis, or edema with 2+ radial, pedal and femoral pulses. No carotid bruits. NEUROLOGIC: No focal neurologic deficits. MUSCULOSKELETAL: No trauma. DIAGNOSTIC STUDIES: EKG is unremarkable. Chest x-ray is unremarkable except for notation is made of calcification of the aorta and moderate hiatal hernia. Creatinine is elevated at 2.4 with a potassium of 5.8. IMPRESSION: Exertional dyspnea and chest discomfort: Differential diagnosis is broad given her moderate hiatal hernia and underlying risk factors. Currently, she does not appear to be experiencing acute coronary syndrome. Her blood pressure is better controlled. RECOMMENDATIONS: 1. We will plan for an outpatient stress test to rule out any occult ischemia. I have low suspicion that this is cardiac in nature. Plan for initiation of PPI as has already been done and consider outpatient followup with the GI service. 2. We will try to obtain her records from [facility] to help corroborate her information regarding a recent stress test. 3. Continue aspirin and beta jazmyn. If necessary, could add amlodipine therapy for her blood pressure as needed. Thank you for this consultation. SHILPA DR: Sage TID: [id number]
[2021-05-19] MEDS ORDERED: SODIUM POLYSTYRENE SULFON/SORB 15 GM/60 ML ORAL.SUSP. PO ONE (13:00)
--- NOTE | 2021-05-19 13:03 | PDOC2 ---
CONSULT Date of Consult Date of Consult DATE: 05/19/21 TIME: 12:47 Reason for Consult Reason for Consult: SVETLANA on CKD Identification/Chief Complaint Chief Complaint Denies any complaints at present Source Source: Chart review, Patient History of Present Illness Reason for Visit: Patient is a 71-year-old AA female who presents to the emergency department for left-sided chest pain that started 15 to 20 minutes prior to ER arrival. Patient describes the pain as a burning and constant pain. She rates it 8 out of 10. No radiation of pain No alleviating or aggravating factors. Patient is also reporting nausea and shortness of breath She has a history of chronic chest pain. She reports that she had an episode of chest pain 2 days ago but was not evaluated for it but the chest pain has worsened t . Patient reports that she has had chest pain for "years." Patient reports that her primary care provider never called in and and she does not take nitroglycerin at home. She repors she has been Vomiting off and on for many months . Recentlt has been vomiting more- last was on Saturday vomitied 3 times . She states she underwent EGD in 2019 . She denies any diarrhea. No abdominal pain . Denies any urinary complaints- reports good UOP, No dysuria , hematuria. No Kidney stones She has Dx of CKD - follows with Dr Robles @ [facility] [place] - last seen middle 2019 , she reports she was told she has CKD stage 3 . Cannot recall any other details She takes Aleve rarely, took 1 tab few days back Past Medical History Past Medical History HTN, CKD stage 3 , Chronic Intermittent Vomiting Family History Family History Non Contributory Social History No ALCOHOL: none Drugs: None Current Problem List Problem List Problems Medical Problems: (1) SVETLANA (acute kidney injury) Status: Acute (2) Chest pain Status: Acute Current Medications Current Medications Current Medications Aspirin (Aspirin Chewable) 324 mg 1X ONCE PO Last administered on 05/18/21at 18:30; Start 05/18/21 at 19:00; Stop 05/18/21 at 19:01; Status DC Nitroglycerin (Nitrostat) 0.4 mg PRN Q5MIN PRN SL CP RATING > 1/10 Last administered on 05/18/21at 18:29; Start 05/18/21 at 18:30; Stop 05/18/21 at 19:26; Status DC Morphine Sulfate (Morphine Sulfate) 2 mg PRN Q2HR PRN IVP PAIN; Start 05/18/21 at 19:15; Stop 05/19/21 at 19:14 Nitroglycerin (Nitrostat) 0.4 mg PRN Q5MIN PRN SL CHEST PAIN; Start 05/18/21 at 19:15; Stop 05/18/21 at 19:30; Status DC Alprazolam (Xanax) 0.5 mg BID PO Last administered on 05/19/21at 08:00; Start 05/18/21 at 21:00 Aspirin (Ecotrin) 81 mg DAILY PO Last administered on 05/19/21at 08:01; Start 05/19/21 at 09:00 Citalopram Hydrobromide (CeleXA) 20 mg DAILY PO Last administered on 05/19/21at 08:01; Start 05/19/21 at 09:00 Famotidine (Pepcid) 20 mg BID PO Last administered on 05/19/21at 08:01; Start 05/18/21 at 21:00; Stop 05/19/21 at 09:14; Status DC Acetaminophen/ Hydrocodone Bitart (Lortab 7.5/325) 1 tab PRN Q6HRS PRN PO MILD PAIN 1-3; Start 05/18/21 at 19:30 Metoprolol Succinate (Toprol Xl) 50 mg DAILY PO Last administered on 05/19/21at 08:01; Start 05/19/21 at 09:00 Simvastatin (Zocor) 40 mg HS PO ; Start 05/18/21 at 21:00; Stop 05/18/21 at 21:27; Status DC Nitroglycerin (Nitrostat) 0.4 mg PRN Q5MIN PRN SL CHEST PAIN; Start 05/18/21 at 19:30 Ondansetron HCl (Zofran) 4 mg PRN Q6HRS PRN IVP NAUSEA/VOMITING; Start 05/18/21 at 19:30 Calcium Carbonate/ Glycine (Tums) 500 mg PRN Q3HRS PRN PO UPSET STOMACH; Start 05/18/21 at 19:30 Zolpidem Tartrate (Ambien) 5 mg PRN QHS PRN PO INSOMNIA, MAY REPEAT IN 1HR; Start 05/18/21 at 19:30 Info (Non-Icu Electrolyte Protocol) 1 ea PRN DAILY PRN MC SEE COMMENTS; Start 05/18/21 at 19:30 Oxycodone/ Acetaminophen (Percocet 5/325) 1 tab PRN Q4HRS PRN PO MODERATE PAIN; Start 05/18/21 at 19:30 Oxycodone/ Acetaminophen (Percocet 5/325) 2 tab PRN Q4HRS PRN PO MODERATE PAIN, SEVERE PAIN; Start 05/18/21 at 19:30 Acetaminophen (Tylenol) 650 mg PRN Q6HRS PRN PO Headaches, Temp > 101.5F; Start 05/18/21 at 19:30 Senna/Docusate Sodium (Senna Plus) 1 tab BID PO Last administered on 05/19/21at 08:01; Start 05/18/21 at 21:00 Heparin Sodium (Porcine) (Heparin Sodium) 5,000 unit Q8HRS SQ Last administered on 05/19/21at 06:17; Start 05/18/21 at 22:00 Simvastatin (Zocor) 40 mg DAILY PO Last administered on 05/19/21at 08:01; Start 05/19/21 at 09:00 Famotidine (Pepcid) 20 mg DAILY PO ; Start 05/20/21 at 09:00 Sodium Chloride 1,000 ml @ 100 mls/hr 1X ONCE IV Last administered on 05/19/21at 10:59; Start 05/19/21 at 10:45; Stop 05/19/21 at 20:44 Active Scripts Active Pepcid (Famotidine) 20 Mg Tablet 20 Mg PO BID Reported Celebrex (Celecoxib) 200 Mg Capsule 2 Cap PO DAILY Vesicare (Solifenacin Succinate) 10 Mg Tablet 10 Mg PO DAILY Rosuvastatin Calcium 10 Mg Tablet 1 Tab PO QHS Flonase Allergy Relief (Fluticasone Propionate) 9.9 Ml [place].susp 2 Sprays NS DAILY Hydrocodone-Apap 7.5-325 (Hydrocodone Bit/Acetaminophen) 1 Each Tablet 1 Tab PO PRN Q6HRS PRN Xanax (Alprazolam) 0.5 Mg Tablet 0.5 Mg PO PRN Q4HRS PRN Aspir 81 (Aspirin) 81 Mg Tablet.dr 81 Mg PO DAILY Enalapril Maleate 20 Mg Tablet 20 Mg PO DAILY Citalopram Hbr (Citalopram Hydrobromide) 20 Mg Tablet 20 Mg PO DAILY Simvastatin 40 Mg Tablet 40 Mg PO DAILY Alprazolam 0.5 Mg Tablet 0.5 Mg PO BID Metoprolol Succinate ( Xl ) (Metoprolol Succinate) 25 Mg Tab.er.24h 50 Mg PO DAILY Allergies Allergies: Coded Allergies: No Known Drug Allergies (Unverified , 05/18/21) ROS Review of System As per HPI, rest of the ROS is negative Physical Exam Physical Exam General: Alert, Oriented X3, Cooperative, No acute distress HEENT: PERRLA.OM moist Neck Supple Lungs: Clear to auscultation, Non labored Heart: RRR, no murmurs Extremities: No edema, No cyanosis Skin: No significant lesion, No rash Neuro: Normal speech, Normal tone, Cranial nerves 3-12 NL Psych/Mental Status: Mental status NL, Mood NL No Purcell, No CVA or SP tenderness Vital Signs Vital Signs Date Time Temp Pulse Resp B/P (MAP) Pulse Ox O2 Delivery O2 Flow Rate FiO2 05/19/21 11:00 97.8 53 16 106/59 (75) 100 Room Air 97.8 Assessment & Plan SVETLANA on CKD- Vasomotor/c/o Vomiting ; Renal US reported unremarkable ; UA unremarkable . Supportive care, IVF, avoid Nephtoxins, strict I/O. Monitor daily labs Vomiting - states chronic s/p EGD as well. Reports increased recently . Defer to primary CKD stage 3 B- based on [facility] records Cr 1.4-1.6 (), No interval or recent labs available to me . Please Obtain records from her PCP and Rn New Grad HyperKalemia - Mild , Patient reports she thinks she was taken of Enalapril by her PCP last year (Listed in [facility] reconciled med list ) . Not on home diuretics or any K supplements . Recommend Low K in diet , Kayexalate x 1 Monitor Chest pain- Per Primary angina, with exertion, card fu History of CAD- negative stress test Labs Labs Laboratory Tests Test 05/18/21 18:20 05/19/21 00:45 05/19/21 01:30 05/19/21 11:00 White Blood Count 7.4 x10^3/uL (4.0-11.0) 5.7 x10^3/uL (4.0-11.0) Red Blood Count 5.28 x10^6/uL (3.50-5.40) 4.37 x10^6/uL (3.50-5.40) Hemoglobin 13.9 g/dL (12.0-15.5) 11.7 g/dL (12.0-15.5) Hematocrit 43.7 % (36.0-47.0) 36.1 % (36.0-47.0) Mean Corpuscular Volume 83 fL (79-100) 83 fL (79-100) Mean Corpuscular Hemoglobin 26 pg (25-35) 27 pg (25-35) Mean Corpuscular Hemoglobin Concent 32 g/dL (31-37) 32 g/dL (31-37) Red Cell Distribution Width 15.0 % (11.5-14.5) 15.0 % (11.5-14.5) Platelet Count 271 x10^3/uL (140-400) 214 x10^3/uL (140-400) Neutrophils (%) (Auto) 48 % (31-73) 46 % (31-73) Lymphocytes (%) (Auto) 37 % (24-48) 41 % (24-48) Monocytes (%) (Auto) 11 % (0-9) 10 % (0-9) Eosinophils (%) (Auto) 3 % (0-3) 3 % (0-3) Basophils (%) (Auto) 1 % (0-3) 1 % (0-3) Neutrophils # (Auto) 3.6 x10^3/uL (1.8-7.7) 2.6 x10^3/uL (1.8-7.7) Lymphocytes # (Auto) 2.8 x10^3/uL (1.0-4.8) 2.4 x10^3/uL (1.0-4.8) Monocytes # (Auto) 0.8 x10^3/uL (0.0-1.1) 0.5 x10^3/uL (0.0-1.1) Eosinophils # (Auto) 0.2 x10^3/uL (0.0-0.7) 0.2 x10^3/uL (0.0-0.7) Basophils # (Auto) 0.1 x10^3/uL (0.0-0.2) 0.0 x10^3/uL (0.0-0.2) Sodium Level 140 mmol/L (136-145) 139 mmol/L (136-145) Potassium Level 5.0 mmol/L (3.5-5.1) 5.8 mmol/L (3.5-5.1) Chloride Level 102 mmol/L (98-107) 104 mmol/L (98-107) Carbon Dioxide Level 26 mmol/L (21-32) 27 mmol/L (21-32) Anion Gap 12 (6-14) 8 (6-14) Blood Urea Nitrogen 34 mg/dL (7-20) 34 mg/dL (7-20) Creatinine 2.4 mg/dL (0.6-1.0) 2.3 mg/dL (0.6-1.0) Estimated GFR (Cockcroft-Gault) 24.1 25.4 BUN/Creatinine Ratio 14 (6-20) 15 (6-20) Glucose Level 118 mg/dL (70-99) 80 mg/dL (70-99) Calcium Level 8.9 mg/dL (8.5-10.1) 8.6 mg/dL (8.5-10.1) Total Bilirubin 0.4 mg/dL (0.2-1.0) 0.2 mg/dL (0.2-1.0) Aspartate Amino Transf (AST/SGOT) 11 U/L (15-37) 14 U/L (15-37) Alanine Aminotransferase (ALT/SGPT) 17 U/L (14-59) 15 U/L (14-59) Alkaline Phosphatase 115 U/L (46-116) 98 U/L (46-116) Troponin I High Sensitivity 6 ng/L (4-50) 12 ng/L (4-50) Total Protein 8.9 g/dL (6.4-8.2) 7.1 g/dL (6.4-8.2) Albumin 4.3 g/dL (3.4-5.0) 3.5 g/dL (3.4-5.0) Albumin/Globulin Ratio 0.9 (1.0-1.7) 1.0 (1.0-1.7) Urine Collection Type Unknown Urine Color Yellow Urine Clarity Clear Urine pH 6.5 (<5.0-8.0) Urine Specific [place] 1.020 (1.000-1.030) Urine Protein Negative mg/dL (NEG-TRACE) Urine Glucose (UA) Negative mg/dL (NEG) Urine Ketones (Stick) Negative mg/dL (NEG) Urine Blood Negative (NEG) Urine Nitrite Negative (NEG) Urine Bilirubin Negative (NEG) Urine Urobilinogen Dipstick 0.2 mg/dL (0.2 mg/dL) Urine Leukocyte Esterase Trace (NEG) Urine RBC 0 /HPF (0-2) Urine WBC 1-4 /HPF (0-4) Urine Squamous Epithelial Cells Few /LPF Urine Bacteria 0 /HPF (0-FEW) Laboratory Tests Test 05/18/21 18:20 05/19/21 00:45 05/19/21 01:30 05/19/21 11:00 White Blood Count 7.4 x10^3/uL (4.0-11.0) 5.7 x10^3/uL (4.0-11.0) Red Blood Count 5.28 x10^6/uL (3.50-5.40) 4.37 x10^6/uL (3.50-5.40) Hemoglobin 13.9 g/dL (12.0-15.5) 11.7 g/dL (12.0-15.5) Hematocrit 43.7 % (36.0-47.0) 36.1 % (36.0-47.0) Mean Corpuscular Volume 83 fL (79-100) 83 fL (79-100) Mean Corpuscular Hemoglobin 26 pg (25-35) 27 pg (25-35) Mean Corpuscular Hemoglobin Concent 32 g/dL (31-37) 32 g/dL (31-37) Red Cell Distribution Width 15.0 % (11.5-14.5) 15.0 % (11.5-14.5) Platelet Count 271 x10^3/uL (140-400) 214 x10^3/uL (140-400) Neutrophils (%) (Auto) 48 % (31-73) 46 % (31-73) Lymphocytes (%) (Auto) 37 % (24-48) 41 % (24-48) Monocytes (%) (Auto) 11 % (0-9) 10 % (0-9) Eosinophils (%) (Auto) 3 % (0-3) 3 % (0-3) Basophils (%) (Auto) 1 % (0-3) 1 % (0-3) Neutrophils # (Auto) 3.6 x10^3/uL (1.8-7.7) 2.6 x10^3/uL (1.8-7.7) Lymphocytes # (Auto) 2.8 x10^3/uL (1.0-4.8) 2.4 x10^3/uL (1.0-4.8) Monocytes # (Auto) 0.8 x10^3/uL (0.0-1.1) 0.5 x10^3/uL (0.0-1.1) Eosinophils # (Auto) 0.2 x10^3/uL (0.0-0.7) 0.2 x10^3/uL (0.0-0.7) Basophils # (Auto) 0.1 x10^3/uL (0.0-0.2) 0.0 x10^3/uL (0.0-0.2) Sodium Level 140 mmol/L (136-145) 139 mmol/L (136-145) Potassium Level 5.0 mmol/L (3.5-5.1) 5.8 mmol/L (3.5-5.1) Chloride Level 102 mmol/L (98-107) 104 mmol/L (98-107) Carbon Dioxide Level 26 mmol/L (21-32) 27 mmol/L (21-32) Anion Gap 12 (6-14) 8 (6-14) Blood Urea Nitrogen 34 mg/dL (7-20) 34 mg/dL (7-20) Creatinine 2.4 mg/dL (0.6-1.0) 2.3 mg/dL (0.6-1.0) Estimated GFR (Cockcroft-Gault) 24.1 25.4 BUN/Creatinine Ratio 14 (6-20) 15 (6-20) Glucose Level 118 mg/dL (70-99) 80 mg/dL (70-99) Calcium Level 8.9 mg/dL (8.5-10.1) 8.6 mg/dL (8.5-10.1) Total Bilirubin 0.4 mg/dL (0.2-1.0) 0.2 mg/dL (0.2-1.0) Aspartate Amino Transf (AST/SGOT) 11 U/L (15-37) 14 U/L (15-37) Alanine Aminotransferase (ALT/SGPT) 17 U/L (14-59) 15 U/L (14-59) Alkaline Phosphatase 115 U/L (46-116) 98 U/L (46-116) Troponin I High Sensitivity 6 ng/L (4-50) 12 ng/L (4-50) Total Protein 8.9 g/dL (6.4-8.2) 7.1 g/dL (6.4-8.2) Albumin 4.3 g/dL (3.4-5.0) 3.5 g/dL (3.4-5.0) Albumin/Globulin Ratio 0.9 (1.0-1.7) 1.0 (1.0-1.7) Urine Collection Type Unknown Urine Color Yellow Urine Clarity Clear Urine pH 6.5 (<5.0-8.0) Urine Specific [place] 1.020 (1.000-1.030) Urine Protein Negative mg/dL (NEG-TRACE) Urine Glucose (UA) Negative mg/dL (NEG) Urine Ketones (Stick) Negative mg/dL (NEG) Urine Blood Negative (NEG) Urine Nitrite Negative (NEG) Urine Bilirubin Negative (NEG) Urine Urobilinogen Dipstick 0.2 mg/dL (0.2 mg/dL) Urine Leukocyte Esterase Trace (NEG) Urine RBC 0 /HPF (0-2) Urine WBC 1-4 /HPF (0-4) Urine Squamous Epithelial Cells Few /LPF Urine Bacteria 0 /HPF (0-FEW) Review All relevant outside records, renal labs, imaging studies, telemetry/EKG's were reviewed. Images Images XR CHEST 1V Indication: Reason: chest pain / Spl. Instructions: / History: . Comparison: February 01, 2020 FINDINGS/ IMPRESSION: The aorta is calcified. There is a moderate hiatal hernia. The cardiac silhouette and pulmonary vasculature are within normal limits. There is no focal consolidation, pleural effusion or pneumothorax. The visualized osseous structures are intact. RENAL COMPLETE BILATERAL EXAM: RENAL ULTRASOUND CLINICAL HISTORY: Acute renal failure COMPARISON: None available. TECHNIQUE: Grayscale and color Doppler ultrasound examination of the bilateral kidneys and urinary bladder was performed. FINDINGS: Evaluation of the kidneys is mildly limited due to shadowing from bowel gas. The right kidney measures approximately 8.4 x 4.5 x 3.7 cm. The left kidney measures approximately 9.1 x 3.5 x 4.7 cm. There is no hydronephrosis. Renal cortical thickness and echogenicity is normal. The bladder is normal. IMPRESSION: No hydronephrosis. Electronically signed by: Sheree Gong MD (05/19/2021 10:38 AM) [id number] RAMONA MELVIN MD May 19, 2021 13:03
--- NOTE | 2021-05-19 13:28 | NUR ---
SS following for discharge planning. SS reviewed pt chart and discussed with pt RN. Pt is from home and is currently on room air. Cardiology and Nephrology consulted. SS will continue to follow for discharge planning.
[2021-05-19 14:11] VITALS: BP 116/56
[2021-05-19 19:08] VITALS: BP 188/81
[2021-05-19] MEDS: CALCIUM CARBONATE 500 MG TAB.CHEW PO PRN (19:30)
[2021-05-19 22:22] VITALS: BP 112/56
[2021-05-20 02:51] VITALS: BP 109/58
[2021-05-20 04:59] LABS: ALBUMIN 3.2 g/dL (3.4-5.0); CALCIUM 8.4 mg/dL (8.5-10.1); CREATININE 2.1 mg/dL (0.6-1.0); GFR 28.2; PHOSPHORUS 4.5 mg/dL (2.6-4.7)
[2021-05-20] MEDS: HEPARIN for SUB-Q USE 5,000 UNIT/ML VIAL. SQ SCH ×3 (06:00→19:39)
[2021-05-20 07:00] VITALS: BP 109/53
[2021-05-20] MEDS: ALPRAZolam 0.5 MG TABLET PO SCH ×2 (07:44→19:38)
[2021-05-20] MEDS: SIMVASTATIN 40 MG TABLET. PO SCH (07:44)
[2021-05-20] MEDS: METOPROLOL SUCC 24HR ER 25 MG TAB.ER.24H. PO SCH (07:47)
[2021-05-20] MEDS: ASPIRIN ENTERIC COATED 81 MG TABLET.DR. PO SCH (07:47)
[2021-05-20] MEDS: CITALOPRAM 20 MG TABLET. PO SCH (07:47)
[2021-05-20] MEDS: FAMOTIDINE 20 MG TABLET. PO SCH (07:47)
[2021-05-20] MEDS: SENNOSIDES/DOCUSATE 8.6/50MG TABLET. PO SCH ×2 (09:00→19:38)
[2021-05-20 11:00] VITALS: BP 129/61
--- NOTE | 2021-05-20 11:08 | PDOC ---
[employer] PROGRESS NOTE Date of Service DOS: DATE: 05/20/21 TIME: 11:07 Chief Complaint Chief Complaint angina, with exertion, hx CAD, negative stress test obese, BMI 37 acute renal failure, on CKD 3 hyperkalemia, s/p kayexalate, IV flud, renal consult, US, UA History of Present Illness History of Present Illness cont iv fluid plan dc in am Vitals/I&O Vitals/I&O: Vital Signs Date Time Temp Pulse Resp B/P (MAP) Pulse Ox O2 Delivery O2 Flow Rate FiO2 05/20/21 08:10 Room Air 05/20/21 07:47 61 140/69 05/20/21 07:00 97.7 18 95 97.7 I & O 05/19/21 05/19/21 05/20/21 15:00 23:00 07:00 Intake Total 500 ml Output Total 550 ml Balance -50 ml Physical Exam General: Alert, Oriented X3, Cooperative, No acute distress Extremities: No edema Skin: No significant lesion Labs Labs: Laboratory Tests Test 05/20/21 03:45 Sodium Level 137 mmol/L (136-145) Potassium Level 5.0 mmol/L (3.5-5.1) Chloride Level 103 mmol/L (98-107) Carbon Dioxide Level 29 mmol/L (21-32) Anion Gap 5 (6-14) Blood Urea Nitrogen 28 mg/dL (7-20) Creatinine 2.1 mg/dL (0.6-1.0) Estimated GFR (Cockcroft-Gault) 28.2 Glucose Level 88 mg/dL (70-99) Calcium Level 8.4 mg/dL (8.5-10.1) Phosphorus Level 4.5 mg/dL (2.6-4.7) Albumin 3.2 g/dL (3.4-5.0) Assessment and Plan Assessmemt and Plan Problems Medical Problems: (1) SVETLANA (acute kidney injury) Status: Acute (2) Chest pain Status: Acute Comment Review of Relevant I have reviewed the following items matilde (where applicable) has been applied. Medications: Current Medications Medications (Trade) Dose Ordered Sig/Jennifer Route PRN Reason Start Time Stop Time Status Last Admin Dose Admin Famotidine (Pepcid) 20 mg DAILY PO 05/20/21 09:00 05/20/21 07:47 Sodium Polystyrene Sulfonate (Kayexalate) 15 gm 1X ONCE PO 05/19/21 13:00 05/19/21 13:02 DC 05/19/21 13:30 Justifications for Admission Other Justification JUDE JOSEPH MD May 20, 2021 11:08
--- NOTE | 2021-05-20 14:00 | PDOC ---
DATE OF SERVICE DATE: 05/20/21 TIME: 13:58 SUBJECTIVE ROS stable OBJECTIVE Vital Signs Vital Signs Date Time Temp Pulse Resp B/P (MAP) Pulse Ox O2 Delivery O2 Flow Rate FiO2 05/20/21 11:00 97.8 55 16 129/61 (83) 99 Room Air 97.8 I & 0 Intake and Output 05/20/21 07:00 Intake Total 500 ml Output Total 550 ml Balance -50 ml Intake Oral 500 ml Output Urine Total 550 ml # Voids 2 # Bowel Movements 1 PHYSICAL EXAM Physical Exam General: Alert, Oriented X3, Cooperative, No acute distress HEENT: PERRLA.OM moist Neck Supple Lungs: Clear to auscultation, Non labored Heart: RRR, no murmurs Extremities: No edema, No cyanosis Skin: No significant lesion, No rash Neuro: Normal speech, Normal tone, Cranial nerves 3-12 NL Psych/Mental Status: Mental status NL, Mood NL No Purcell, No CVA or SP tenderness A DIAGNOSIS/ASSESSMENT Assessment & Plan KI on CKD- Vasomotor/c/o Vomiting ; Renal US reported unremarkable ; UA unremarkable .Creatinine trending down Supportive care, maintain fluid balance avoid Nephrotoxins, strict I/O. Monitor daily labs Vomiting - states chronic s/p EGD as well. Reports increased recently . Defer to primary CKD stage 3 B- based on [facility] records Cr 1.4-1.6 (), No interval or recent labs available to me . Please Obtain records from her PCP and [employer] HyperKalemia - Resolved Chest pain- Per Primary angina, with exertion, card fu History of CAD- negative stress test COMMENT/RELEVANT DATA Meds Current Medications Medications (Trade) Dose Ordered Sig/Jennifer Start Time Stop Time Status Last Admin Dose Admin Acetaminophen (Tylenol) 650 mg PRN Q6HRS PRN 05/18/21 19:30 Acetaminophen/ Hydrocodone Bitart (Lortab 7.5/325) 1 tab PRN Q6HRS PRN 05/18/21 19:30 Alprazolam (Xanax) 0.5 mg BID 05/18/21 21:00 05/20/21 07:44 0.5 MG Aspirin (Aspirin Chewable) 324 mg 1X ONCE 05/18/21 19:00 05/18/21 19:01 DC 05/18/21 18:30 324 MG Aspirin (Ecotrin) 81 mg DAILY 05/19/21 09:00 05/20/21 07:47 81 MG Calcium Carbonate/ Glycine (Tums) 500 mg PRN Q3HRS PRN 05/18/21 19:30 05/19/21 19:30 500 MG Citalopram Hydrobromide (CeleXA) 20 mg DAILY 05/19/21 09:00 05/20/21 07:47 20 MG Famotidine (Pepcid) 20 mg DAILY 05/20/21 09:00 05/20/21 07:47 20 MG Heparin Sodium (Porcine) (Heparin Sodium) 5,000 unit Q8HRS 05/18/21 22:00 05/20/21 06:00 5,000 UNIT Info (Non-Icu Electrolyte Protocol) 1 ea PRN DAILY PRN 05/18/21 19:30 Metoprolol Succinate (Toprol Xl) 50 mg DAILY 05/19/21 09:00 05/20/21 07:47 50 MG Morphine Sulfate (Morphine Sulfate) 2 mg PRN Q2HR PRN 05/18/21 19:15 05/19/21 19:14 DC Nitroglycerin (Nitrostat) 0.4 mg PRN Q5MIN PRN 05/18/21 19:30 Ondansetron HCl (Zofran) 4 mg PRN Q6HRS PRN 05/18/21 19:30 Oxycodone/ Acetaminophen (Percocet 5/325) 2 tab PRN Q4HRS PRN 05/18/21 19:30 05/19/21 19:31 2 TAB Senna/Docusate Sodium (Senna Plus) 1 tab BID 05/18/21 21:00 05/20/21 09:00 1 TAB Simvastatin (Zocor) 40 mg DAILY 05/19/21 09:00 05/20/21 07:44 40 MG Sodium Polystyrene Sulfonate (Kayexalate) 15 gm 1X ONCE 05/19/21 13:00 05/19/21 13:02 DC 05/19/21 13:30 15 GM Sodium Chloride 1,000 ml @ 100 mls/hr 1X ONCE 05/19/21 10:45 05/19/21 20:44 DC 05/19/21 10:59 100 MLS/HR Zolpidem Tartrate (Ambien) 5 mg PRN QHS PRN 05/18/21 19:30 Lab Laboratory Tests Test 05/20/21 03:45 Sodium Level 137 mmol/L (136-145) Potassium Level 5.0 mmol/L (3.5-5.1) Chloride Level 103 mmol/L (98-107) Carbon Dioxide Level 29 mmol/L (21-32) Anion Gap 5 (6-14) Blood Urea Nitrogen 28 mg/dL (7-20) Creatinine 2.1 mg/dL (0.6-1.0) Estimated GFR (Cockcroft-Gault) 28.2 Glucose Level 88 mg/dL (70-99) Calcium Level 8.4 mg/dL (8.5-10.1) Phosphorus Level 4.5 mg/dL (2.6-4.7) Albumin 3.2 g/dL (3.4-5.0) Results All relevant outside records, renal labs, imaging studies, telemetry/EKG's were reviewed. Justicifation of Admission Dx: Justifications for Admission: Justification of Admission Dx: N/A RAMONA MELVIN MD May 20, 2021 14:00
--- NOTE | 2021-05-20 14:09 | PDOC ---
PROGRESS NOTES Date of Service DATE: 05/20/21 TIME: 14:06 Subjective Subjective Patient seen and examined Objective Objective Vital Signs Date Time Temp Pulse Resp B/P (MAP) Pulse Ox O2 Delivery O2 Flow Rate FiO2 05/20/21 11:00 97.8 55 16 129/61 (83) 99 Room Air 97.8 Intake and Output 05/20/21 07:00 Intake Total 500 ml Output Total 550 ml Balance -50 ml Intake Oral 500 ml Output Urine Total 550 ml # Voids 2 # Bowel Movements 1 Physical Exam Abdomen: Normal bowel sounds Heart: Regular rate General: mild distress Lungs: Other (Mildly decreased breath sounds) Assessment Assessment Problems Medical Problems: (1) SVETLANA (acute kidney injury) Status: Acute (2) Chest pain Status: Acute 1. Chest discomfort. Resolved. Troponin normal. PPIs have been started. We will continue present medications including aspirin. Outpatient follow-up. 2. Chronic renal disease. Creatinine improved to 2.1. Potassium improved to 5.0. Followed by the renal service. 3. Hypertension. Better controlled. We will continue to monitor. Comment Review of Relevant I have reviewed the following items matilde (where applicable) has been applied. Labs Laboratory Tests Test 05/18/21 18:20 05/19/21 00:45 05/19/21 01:30 05/19/21 11:00 White Blood Count 7.4 x10^3/uL (4.0-11.0) 5.7 x10^3/uL (4.0-11.0) Red Blood Count 5.28 x10^6/uL (3.50-5.40) 4.37 x10^6/uL (3.50-5.40) Hemoglobin 13.9 g/dL (12.0-15.5) 11.7 g/dL (12.0-15.5) Hematocrit 43.7 % (36.0-47.0) 36.1 % (36.0-47.0) Mean Corpuscular Volume 83 fL (79-100) 83 fL (79-100) Mean Corpuscular Hemoglobin 26 pg (25-35) 27 pg (25-35) Mean Corpuscular Hemoglobin Concent 32 g/dL (31-37) 32 g/dL (31-37) Red Cell Distribution Width 15.0 % (11.5-14.5) 15.0 % (11.5-14.5) Platelet Count 271 x10^3/uL (140-400) 214 x10^3/uL (140-400) Neutrophils (%) (Auto) 48 % (31-73) 46 % (31-73) Lymphocytes (%) (Auto) 37 % (24-48) 41 % (24-48) Monocytes (%) (Auto) 11 % (0-9) 10 % (0-9) Eosinophils (%) (Auto) 3 % (0-3) 3 % (0-3) Basophils (%) (Auto) 1 % (0-3) 1 % (0-3) Neutrophils # (Auto) 3.6 x10^3/uL (1.8-7.7) 2.6 x10^3/uL (1.8-7.7) Lymphocytes # (Auto) 2.8 x10^3/uL (1.0-4.8) 2.4 x10^3/uL (1.0-4.8) Monocytes # (Auto) 0.8 x10^3/uL (0.0-1.1) 0.5 x10^3/uL (0.0-1.1) Eosinophils # (Auto) 0.2 x10^3/uL (0.0-0.7) 0.2 x10^3/uL (0.0-0.7) Basophils # (Auto) 0.1 x10^3/uL (0.0-0.2) 0.0 x10^3/uL (0.0-0.2) Sodium Level 140 mmol/L (136-145) 139 mmol/L (136-145) Potassium Level 5.0 mmol/L (3.5-5.1) 5.8 mmol/L (3.5-5.1) Chloride Level 102 mmol/L (98-107) 104 mmol/L (98-107) Carbon Dioxide Level 26 mmol/L (21-32) 27 mmol/L (21-32) Anion Gap 12 (6-14) 8 (6-14) Blood Urea Nitrogen 34 mg/dL (7-20) 34 mg/dL (7-20) Creatinine 2.4 mg/dL (0.6-1.0) 2.3 mg/dL (0.6-1.0) Estimated GFR (Cockcroft-Gault) 24.1 25.4 BUN/Creatinine Ratio 14 (6-20) 15 (6-20) Glucose Level 118 mg/dL (70-99) 80 mg/dL (70-99) Calcium Level 8.9 mg/dL (8.5-10.1) 8.6 mg/dL (8.5-10.1) Total Bilirubin 0.4 mg/dL (0.2-1.0) 0.2 mg/dL (0.2-1.0) Aspartate Amino Transf (AST/SGOT) 11 U/L (15-37) 14 U/L (15-37) Alanine Aminotransferase (ALT/SGPT) 17 U/L (14-59) 15 U/L (14-59) Alkaline Phosphatase 115 U/L (46-116) 98 U/L (46-116) Troponin I High Sensitivity 6 ng/L (4-50) 12 ng/L (4-50) Total Protein 8.9 g/dL (6.4-8.2) 7.1 g/dL (6.4-8.2) Albumin 4.3 g/dL (3.4-5.0) 3.5 g/dL (3.4-5.0) Albumin/Globulin Ratio 0.9 (1.0-1.7) 1.0 (1.0-1.7) Urine Collection Type Unknown Urine Color Yellow Urine Clarity Clear Urine pH 6.5 (<5.0-8.0) Urine Specific [place] 1.020 (1.000-1.030) Urine Protein Negative mg/dL (NEG-TRACE) Urine Glucose (UA) Negative mg/dL (NEG) Urine Ketones (Stick) Negative mg/dL (NEG) Urine Blood Negative (NEG) Urine Nitrite Negative (NEG) Urine Bilirubin Negative (NEG) Urine Urobilinogen Dipstick 0.2 mg/dL (0.2 mg/dL) Urine Leukocyte Esterase Trace (NEG) Urine RBC 0 /HPF (0-2) Urine WBC 1-4 /HPF (0-4) Urine Squamous Epithelial Cells Few /LPF Urine Bacteria 0 /HPF (0-FEW) Test 05/20/21 03:45 Sodium Level 137 mmol/L (136-145) Potassium Level 5.0 mmol/L (3.5-5.1) Chloride Level 103 mmol/L (98-107) Carbon Dioxide Level 29 mmol/L (21-32) Anion Gap 5 (6-14) Blood Urea Nitrogen 28 mg/dL (7-20) Creatinine 2.1 mg/dL (0.6-1.0) Estimated GFR (Cockcroft-Gault) 28.2 Glucose Level 88 mg/dL (70-99) Calcium Level 8.4 mg/dL (8.5-10.1) Phosphorus Level 4.5 mg/dL (2.6-4.7) Albumin 3.2 g/dL (3.4-5.0) Laboratory Tests Test 05/20/21 03:45 Sodium Level 137 mmol/L (136-145) Potassium Level 5.0 mmol/L (3.5-5.1) Chloride Level 103 mmol/L (98-107) Carbon Dioxide Level 29 mmol/L (21-32) Anion Gap 5 (6-14) Blood Urea Nitrogen 28 mg/dL (7-20) Creatinine 2.1 mg/dL (0.6-1.0) Estimated GFR (Cockcroft-Gault) 28.2 Glucose Level 88 mg/dL (70-99) Calcium Level 8.4 mg/dL (8.5-10.1) Phosphorus Level 4.5 mg/dL (2.6-4.7) Albumin 3.2 g/dL (3.4-5.0) Microbiology 05/19/21 Urine Culture - Final, Complete Medications Current Medications Aspirin (Aspirin Chewable) 324 mg 1X ONCE PO Last administered on 05/18/21at 18:30; Start 05/18/21 at 19:00; Stop 05/18/21 at 19:01; Status DC Nitroglycerin (Nitrostat) 0.4 mg PRN Q5MIN PRN SL CP RATING > 1/10 Last administered on 05/18/21at 18:29; Start 05/18/21 at 18:30; Stop 05/18/21 at 19:26 ; Status DC Morphine Sulfate (Morphine Sulfate) 2 mg PRN Q2HR PRN IVP PAIN; Start 05/18/21 at 19:15; Stop 05/19/21 at 19:14; Status DC Nitroglycerin (Nitrostat) 0.4 mg PRN Q5MIN PRN SL CHEST PAIN; Start 05/18/21 at 19:15; Stop 05/18/21 at 19:30; Status DC Alprazolam (Xanax) 0.5 mg BID PO Last administered on 05/20/21at 07:44; Start 05/18/21 at 21:00 Aspirin (Ecotrin) 81 mg DAILY PO Last administered on 05/20/21at 07:47; Start 05/19/21 at 09:00 Citalopram Hydrobromide (CeleXA) 20 mg DAILY PO Last administered on 05/20/21at 07:47; Start 05/19/21 at 09:00 Famotidine (Pepcid) 20 mg BID PO Last administered on 05/19/21at 08:01; Start 05/18/21 at 21:00; Stop 05/19/21 at 09:14; Status DC Acetaminophen/ Hydrocodone Bitart (Lortab 7.5/325) 1 tab PRN Q6HRS PRN PO MODERATE PAIN; Start 05/18/21 at 19:30 Metoprolol Succinate (Toprol Xl) 50 mg DAILY PO Last administered on 05/20/21at 07:47; Start 05/19/21 at 09:00 Simvastatin (Zocor) 40 mg HS PO ; Start 05/18/21 at 21:00; Stop 05/18/21 at 21:27; Status DC Nitroglycerin (Nitrostat) 0.4 mg PRN Q5MIN PRN SL CHEST PAIN; Start 05/18/21 at 19:30 Ondansetron HCl (Zofran) 4 mg PRN Q6HRS PRN IVP NAUSEA/VOMITING; Start 05/18/21 at 19:30 Calcium Carbonate/ Glycine (Tums) 500 mg PRN Q3HRS PRN PO UPSET STOMACH Last administered on 05/19/21at 19:30; Start 05/18/21 at 19:30 Zolpidem Tartrate (Ambien) 5 mg PRN QHS PRN PO INSOMNIA, MAY REPEAT IN 1HR; Start 05/18/21 at 19:30 Info (Non-Icu Electrolyte Protocol) 1 ea PRN DAILY PRN MC SEE COMMENTS; Start 05/18/21 at 19:30 Oxycodone/ Acetaminophen (Percocet 5/325) 1 tab PRN Q4HRS PRN PO MILD PAIN 1-3; Start 05/18/21 at 19:30 Oxycodone/ Acetaminophen (Percocet 5/325) 2 tab PRN Q4HRS PRN PO SEVERE PAIN Last administered on 05/19/21at 19:31; Start 05/18/21 at 19:30 Acetaminophen (Tylenol) 650 mg PRN Q6HRS PRN PO Headaches, Temp > 101.5F; Start 05/18/21 at 19:30 Senna/Docusate Sodium (Senna Plus) 1 tab BID PO Last administered on 05/20/21at 09:00; Start 05/18/21 at 21:00 Heparin Sodium (Porcine) (Heparin Sodium) 5,000 unit Q8HRS SQ Last administered on 05/20/21at 06:00; Start 05/18/21 at 22:00 Simvastatin (Zocor) 40 mg DAILY PO Last administered on 05/20/21at 07:44; Start 05/19/21 at 09:00 Famotidine (Pepcid) 20 mg DAILY PO Last administered on 05/20/21at 07:47; Start 05/20/21 at 09:00 Sodium Chloride 1,000 ml @ 100 mls/hr 1X ONCE IV Last administered on 05/19/21at 10:59; Start 05/19/21 at 10:45; Stop 05/19/21 at 20:44; Status DC Sodium Polystyrene Sulfonate (Kayexalate) 15 gm 1X ONCE PO Last administered on 05/19/21at 13:30; Start 05/19/21 at 13:00; Stop 05/19/21 at 13:02; Status DC Active Scripts Active Pepcid (Famotidine) 20 Mg Tablet 20 Mg PO BID Reported Celebrex (Celecoxib) 200 Mg Capsule 2 Cap PO DAILY Vesicare (Solifenacin Succinate) 10 Mg Tablet 10 Mg PO DAILY Rosuvastatin Calcium 10 Mg Tablet 1 Tab PO QHS Flonase Allergy Relief (Fluticasone Propionate) 9.9 Ml [place].susp 2 Sprays NS DAILY Hydrocodone-Apap 7.5-325 (Hydrocodone Bit/Acetaminophen) 1 Each Tablet 1 Tab PO PRN Q6HRS PRN Xanax (Alprazolam) 0.5 Mg Tablet 0.5 Mg PO PRN Q4HRS PRN Aspir 81 (Aspirin) 81 Mg Tablet.dr 81 Mg PO DAILY Enalapril Maleate 20 Mg Tablet 20 Mg PO DAILY Citalopram Hbr (Citalopram Hydrobromide) 20 Mg Tablet 20 Mg PO DAILY Simvastatin 40 Mg Tablet 40 Mg PO DAILY Alprazolam 0.5 Mg Tablet 0.5 Mg PO BID Metoprolol Succinate ( Xl ) (Metoprolol Succinate) 25 Mg Tab.er.24h 50 Mg PO DAILY Vitals/I & O Vital Sign - Last 24 Hours 05/19/21 05/19/21 05/19/21 05/19/21 14:11 19:08 20:00 20:01 Temp 97.3 97.5 97.3 97.5 Pulse 61 75 Resp 16 16 B/P (MAP) 116/56 (76) 188/81 (116) Pulse Ox 98 99 99 O2 Delivery Room Air Room Air Room Air Room Air 05/19/21 05/20/21 05/20/21 05/20/21 22:22 02:51 07:00 07:47 Temp 97.7 97.8 97.7 97.7 97.8 97.7 Pulse 53 61 57 61 Resp 16 16 18 B/P (MAP) 112/56 (74) 109/58 (75) 109/53 (71) 140/69 Pulse Ox 92 95 95 O2 Delivery Room Air Room Air Room Air 05/20/21 05/20/21 08:10 11:00 Temp 97.8 97.8 Pulse 55 Resp 16 B/P (MAP) 129/61 (83) Pulse Ox 99 O2 Delivery Room Air Room Air Intake and Output 05/19/21 05/19/21 05/20/21 15:00 23:00 07:00 Intake Total 500 ml Output Total 550 ml Balance -50 ml Justifications for Admission Other Justification AYSE LOCK MD May 20, 2021 14:09
--- NOTE | 2021-05-20 14:13 | NUR ---
Reviewed assessment documentation by SN. Danica Manuel RN [facility]
[2021-05-20 15:00] VITALS: BP 127/60
[2021-05-20] MEDS: IV NORMAL SALINE 1000ML BAG 1,000 ML IV SCH (15:00)
[2021-05-20 18:38] VITALS: BP 128/61
[2021-05-20 22:50] VITALS: BP 117/55
[2021-05-21] MEDS: IV NORMAL SALINE 1000ML BAG 1,000 ML IV SCH ×3 (01:00→21:38)
[2021-05-21 02:40] VITALS: BP 133/60
[2021-05-21] MEDS: HEPARIN for SUB-Q USE 5,000 UNIT/ML VIAL. SQ SCH ×3 (05:19→21:38)
[2021-05-21 05:48] LABS: CALCIUM 8.4 mg/dL (8.5-10.1); CREATININE 2.2 mg/dL (0.6-1.0); GFR 26.7
[2021-05-21 06:35] VITALS: BP_SYST 139; BP_DIAS 62; BP_DIAS 92
[2021-05-21] MEDS: FAMOTIDINE 20 MG TABLET. PO SCH (08:09)
[2021-05-21] MEDS: METOPROLOL SUCC 24HR ER 25 MG TAB.ER.24H. PO SCH (08:10)
[2021-05-21] MEDS: SIMVASTATIN 40 MG TABLET. PO SCH (08:10)
[2021-05-21] MEDS: SENNOSIDES/DOCUSATE 8.6/50MG TABLET. PO SCH ×2 (08:10→21:37)
[2021-05-21] MEDS: ALPRAZolam 0.5 MG TABLET PO SCH ×2 (08:10→21:37)
[2021-05-21] MEDS: CITALOPRAM 20 MG TABLET. PO SCH (08:10)
[2021-05-21] MEDS: ASPIRIN ENTERIC COATED 81 MG TABLET.DR. PO SCH (08:10)
[2021-05-21 11:00] VITALS: BP 159/67
--- NOTE | 2021-05-21 12:25 | PDOC ---
[employer] PROGRESS NOTE Date of Service DOS: DATE: 05/21/21 TIME: 12:24 Chief Complaint Chief Complaint angina, with exertion, hx CAD, negative stress test obese, BMI 37 acute renal failure, on CKD 3 hyperkalemia, s/p kayexalate, IV flud, renal consult, US, UA History of Present Illness History of Present Illness again, cont iv fluid weakness, fall risk, PT and OT, home health or skilled in AM new cr baseline may be 2.1 range plan dc soon Vitals/I&O Vitals/I&O: Vital Signs Date Time Temp Pulse Resp B/P (MAP) Pulse Ox O2 Delivery O2 Flow Rate FiO2 05/21/21 11:00 97.7 57 16 159/67 (97) 97 Nasal Cannula 97.7 I & O 05/20/21 05/20/21 05/21/21 15:00 23:00 07:00 Intake Total 280 ml 240 ml 600 ml Output Total 1600 ml 300 ml Balance 280 ml -1360 ml 300 ml Physical Exam General: Alert, Oriented X3, Cooperative, No acute distress Heart: Regular rate Lungs: Clear Abdomen: Normal bowel sounds Extremities: No clubbing, No edema Skin: No rashes, No significant lesion Labs Labs: Laboratory Tests Test 05/21/21 04:00 Sodium Level 144 mmol/L (136-145) Potassium Level 5.0 mmol/L (3.5-5.1) Chloride Level 108 mmol/L (98-107) Carbon Dioxide Level 24 mmol/L (21-32) Anion Gap 12 (6-14) Blood Urea Nitrogen 25 mg/dL (7-20) Creatinine 2.2 mg/dL (0.6-1.0) Estimated GFR (Cockcroft-Gault) 26.7 Glucose Level 82 mg/dL (70-99) Calcium Level 8.4 mg/dL (8.5-10.1) Assessment and Plan Assessmemt and Plan Problems Medical Problems: (1) SVETLANA (acute kidney injury) Status: Acute (2) Chest pain Status: Acute Comment Review of Relevant I have reviewed the following items matilde (where applicable) has been applied. Medications: Current Medications Medications (Trade) Dose Ordered Sig/Jennifer Route PRN Reason Start Time Stop Time Status Last Admin Dose Admin Sodium Chloride 1,000 ml @ 100 mls/hr Q10H IV 05/20/21 15:00 05/21/21 11:00 Justifications for Admission Other Justification JUDE JOSEPH MD May 21, 2021 12:25
--- NOTE | 2021-05-21 13:42 | PDOC ---
DATE OF SERVICE DATE: 05/21/21 TIME: 13:40 SUBJECTIVE ROS stable OBJECTIVE Vital Signs Vital Signs Date Time Temp Pulse Resp B/P (MAP) Pulse Ox O2 Delivery O2 Flow Rate FiO2 05/21/21 11:00 97.7 57 16 159/67 (97) 97 Nasal Cannula 97.7 I & 0 Intake and Output 05/21/21 07:00 Intake Total 1120 ml Output Total 1900 ml Balance -780 ml Intake Oral 1120 ml Output Urine Total 1900 ml PHYSICAL EXAM Physical Exam General: Alert, Oriented X3, Cooperative, No acute distress HEENT: PERRLA.OM moist Neck Supple Lungs: Clear to auscultation, Non labored Heart: RRR, no murmurs Extremities: No edema, No cyanosis Skin: No significant lesion, No rash Neuro: Normal speech, Normal tone, Cranial nerves 3-12 NL Psych/Mental Status: Mental status NL, Mood NL No Purcell, No CVA or SP tenderness A DIAGNOSIS/ASSESSMENT Assessment & Plan SVETLANA on CKD- Vasomotor/c/o Vomiting ; Renal US reported unremarkable ; UA unremarkable .Creatinine stable . Good UOP Supportive care, maintain fluid balance avoid Nephrotoxins, strict I/O. Monitor daily labs Vomiting POA - chronic s/p EGD . Resolved CKD stage 3 B- based on [facility] records Cr 1.4-1.6 (), No interval or recent labs available to me . Please Obtain records from her PCP and [employer] HyperKalemia - Resolved Chest pain- Per Primary angina, with exertion, card fu History of CAD- negative stress test COMMENT/RELEVANT DATA Meds Current Medications Medications (Trade) Dose Ordered Sig/Jennifer Start Time Stop Time Status Last Admin Dose Admin Acetaminophen (Tylenol) 650 mg PRN Q6HRS PRN 05/18/21 19:30 Acetaminophen/ Hydrocodone Bitart (Lortab 7.5/325) 1 tab PRN Q6HRS PRN 05/18/21 19:30 Alprazolam (Xanax) 0.5 mg BID 05/18/21 21:00 05/21/21 08:10 0.5 MG Aspirin (Aspirin Chewable) 324 mg 1X ONCE 05/18/21 19:00 05/18/21 19:01 DC 05/18/21 18:30 324 MG Aspirin (Ecotrin) 81 mg DAILY 05/19/21 09:00 05/21/21 08:10 81 MG Calcium Carbonate/ Glycine (Tums) 500 mg PRN Q3HRS PRN 05/18/21 19:30 05/19/21 19:30 500 MG Citalopram Hydrobromide (CeleXA) 20 mg DAILY 05/19/21 09:00 05/21/21 08:10 20 MG Famotidine (Pepcid) 20 mg DAILY 05/20/21 09:00 05/21/21 08:09 20 MG Heparin Sodium (Porcine) (Heparin Sodium) 5,000 unit Q8HRS 05/18/21 22:00 05/21/21 05:19 5,000 UNIT Info (Non-Icu Electrolyte Protocol) 1 ea PRN DAILY PRN 05/18/21 19:30 Metoprolol Succinate (Toprol Xl) 50 mg DAILY 05/19/21 09:00 05/21/21 08:10 50 MG Morphine Sulfate (Morphine Sulfate) 2 mg PRN Q2HR PRN 05/18/21 19:15 05/19/21 19:14 DC Nitroglycerin (Nitrostat) 0.4 mg PRN Q5MIN PRN 05/18/21 19:30 Ondansetron HCl (Zofran) 4 mg PRN Q6HRS PRN 05/18/21 19:30 Oxycodone/ Acetaminophen (Percocet 5/325) 2 tab PRN Q4HRS PRN 05/18/21 19:30 05/19/21 19:31 2 TAB Senna/Docusate Sodium (Senna Plus) 1 tab BID 05/18/21 21:00 05/21/21 08:10 1 TAB Simvastatin (Zocor) 40 mg DAILY 05/19/21 09:00 05/21/21 08:10 40 MG Sodium Polystyrene Sulfonate (Kayexalate) 15 gm 1X ONCE 05/19/21 13:00 05/19/21 13:02 DC 05/19/21 13:30 15 GM Sodium Chloride 1,000 ml @ 100 mls/hr Q10H 05/20/21 15:00 05/21/21 11:00 100 MLS/HR Zolpidem Tartrate (Ambien) 5 mg PRN QHS PRN 05/18/21 19:30 Lab Laboratory Tests Test 05/21/21 04:00 Sodium Level 144 mmol/L (136-145) Potassium Level 5.0 mmol/L (3.5-5.1) Chloride Level 108 mmol/L (98-107) Carbon Dioxide Level 24 mmol/L (21-32) Anion Gap 12 (6-14) Blood Urea Nitrogen 25 mg/dL (7-20) Creatinine 2.2 mg/dL (0.6-1.0) Estimated GFR (Cockcroft-Gault) 26.7 Glucose Level 82 mg/dL (70-99) Calcium Level 8.4 mg/dL (8.5-10.1) Results All relevant outside records, renal labs, imaging studies, telemetry/EKG's were reviewed. Justicifation of Admission Dx: Justifications for Admission: Justification of Admission Dx: N/A RAMONA MELVIN MD May 21, 2021 13:42
--- NOTE | 2021-05-21 14:58 | PDOC ---
PROGRESS NOTES Date of Service DATE: 05/21/21 TIME: 14:56 Subjective Subjective Patient seen and examined Objective Objective Vital Signs Date Time Temp Pulse Resp B/P (MAP) Pulse Ox O2 Delivery O2 Flow Rate FiO2 05/21/21 11:00 97.7 57 16 159/67 (97) 97 Nasal Cannula 97.7 Intake and Output 05/21/21 07:00 Intake Total 1120 ml Output Total 1900 ml Balance -780 ml Intake Oral 1120 ml Output Urine Total 1900 ml Physical Exam Abdomen: Normal bowel sounds Heart: Regular rate General: mild distress Lungs: Other (Mildly decreased breath sounds) Assessment Assessment Problems Medical Problems: (1) SVETLANA (acute kidney injury) Status: Acute (2) Chest pain Status: Acute 1. Chest discomfort. Resolved. The patient is feeling better today troponins have been normal. We will continue present medications. We will follow-up as an outpatient. 2. Chronic renal disease. Morning potassium of 5.0 with a creatinine of 2.2. Followed by the renal service. 3. Hypertension. Better controlled. We will continue present medications. Comment Review of Relevant I have reviewed the following items matilde (where applicable) has been applied. Labs Laboratory Tests Test 05/20/21 03:45 05/21/21 04:00 Sodium Level 137 mmol/L (136-145) 144 mmol/L (136-145) Potassium Level 5.0 mmol/L (3.5-5.1) 5.0 mmol/L (3.5-5.1) Chloride Level 103 mmol/L (98-107) 108 mmol/L (98-107) Carbon Dioxide Level 29 mmol/L (21-32) 24 mmol/L (21-32) Anion Gap 5 (6-14) 12 (6-14) Blood Urea Nitrogen 28 mg/dL (7-20) 25 mg/dL (7-20) Creatinine 2.1 mg/dL (0.6-1.0) 2.2 mg/dL (0.6-1.0) Estimated GFR (Cockcroft-Gault) 28.2 26.7 Glucose Level 88 mg/dL (70-99) 82 mg/dL (70-99) Calcium Level 8.4 mg/dL (8.5-10.1) 8.4 mg/dL (8.5-10.1) Phosphorus Level 4.5 mg/dL (2.6-4.7) Albumin 3.2 g/dL (3.4-5.0) Laboratory Tests Test 05/21/21 04:00 Sodium Level 144 mmol/L (136-145) Potassium Level 5.0 mmol/L (3.5-5.1) Chloride Level 108 mmol/L (98-107) Carbon Dioxide Level 24 mmol/L (21-32) Anion Gap 12 (6-14) Blood Urea Nitrogen 25 mg/dL (7-20) Creatinine 2.2 mg/dL (0.6-1.0) Estimated GFR (Cockcroft-Gault) 26.7 Glucose Level 82 mg/dL (70-99) Calcium Level 8.4 mg/dL (8.5-10.1) Microbiology 05/19/21 Urine Culture - Final, Complete Medications Current Medications Aspirin (Aspirin Chewable) 324 mg 1X ONCE PO Last administered on 05/18/21at 18:30; Start 05/18/21 at 19:00; Stop 05/18/21 at 19:01; Status DC Nitroglycerin (Nitrostat) 0.4 mg PRN Q5MIN PRN SL CP RATING > 1/10 Last administered on 05/18/21at 18:29; Start 05/18/21 at 18:30; Stop 05/18/21 at 19:26; Status DC Morphine Sulfate (Morphine Sulfate) 2 mg PRN Q2HR PRN IVP PAIN; Start 05/18/21 at 19:15; Stop 05/19/21 at 19:14; Status DC Nitroglycerin (Nitrostat) 0.4 mg PRN Q5MIN PRN SL CHEST PAIN; Start 05/18/21 at 19:15; Stop 05/18/21 at 19:30; Status DC Alprazolam (Xanax) 0.5 mg BID PO Last administered on 05/21/21at 08:10; Start 05/18/21 at 21:00 Aspirin (Ecotrin) 81 mg DAILY PO Last administered on 05/21/21at 08:10; Start 05/19/21 at 09:00 Citalopram Hydrobromide (CeleXA) 20 mg DAILY PO Last administered on 05/21/21at 08:10; Start 05/19/21 at 09:00 Famotidine (Pepcid) 20 mg BID PO Last administered on 05/19/21at 08:01; Start 05/18/21 at 21:00; Stop 05/19/21 at 09:14; Status DC Acetaminophen/ Hydrocodone Bitart (Lortab 7.5/325) 1 tab PRN Q6HRS PRN PO MODERATE PAIN; Start 05/18/21 at 19:30 Metoprolol Succinate (Toprol Xl) 50 mg DAILY PO Last administered on 05/21/21at 08:10; Start 05/19/21 at 09:00 Simvastatin (Zocor) 40 mg HS PO ; Start 05/18/21 at 21:00; Stop 05/18/21 at 21:27; Status DC Nitroglycerin (Nitrostat) 0.4 mg PRN Q5MIN PRN SL CHEST PAIN; Start 05/18/21 at 19:30 Ondansetron HCl (Zofran) 4 mg PRN Q6HRS PRN IVP NAUSEA/VOMITING; Start 05/18/21 at 19:30 Calcium Carbonate/ Glycine (Tums) 500 mg PRN Q3HRS PRN PO UPSET STOMACH Last administered on 05/19/21at 19:30; Start 05/18/21 at 19:30 Zolpidem Tartrate (Ambien) 5 mg PRN QHS PRN PO INSOMNIA, MAY REPEAT IN 1HR; Start 05/18/21 at 19:30 Info (Non-Icu Electrolyte Protocol) 1 ea PRN DAILY PRN MC SEE COMMENTS; Start 05/18/21 at 19:30 Oxycodone/ Acetaminophen (Percocet 5/325) 1 tab PRN Q4HRS PRN PO MILD PAIN 1-3; Start 05/18/21 at 19:30 Oxycodone/ Acetaminophen (Percocet 5/325) 2 tab PRN Q4HRS PRN PO SEVERE PAIN Last administered on 05/19/21at 19:31; Start 05/18/21 at 19:30 Acetaminophen (Tylenol) 650 mg PRN Q6HRS PRN PO Headaches, Temp > 101.5F; Start 05/18/21 at 19:30 Senna/Docusate Sodium (Senna Plus) 1 tab BID PO Last administered on 05/21/21at 08:10; Start 05/18/21 at 21:00 Heparin Sodium (Porcine) (Heparin Sodium) 5,000 unit Q8HRS SQ Last administered on 05/21/21at 05:19; Start 05/18/21 at 22:00 Simvastatin (Zocor) 40 mg DAILY PO Last administered on 05/21/21at 08:10; Start 05/19/21 at 09:00 Famotidine (Pepcid) 20 mg DAILY PO Last administered on 05/21/21at 08:09; Start 05/20/21 at 09:00 Sodium Chloride 1,000 ml @ 100 mls/hr 1X ONCE IV Last administered on at 10:59; Start 05/19/21 at 10:45; Stop 05/19/21 at 20:44; Status DC Sodium Polystyrene Sulfonate (Kayexalate) 15 gm 1X ONCE PO Last administered on 05/19/21at 13:30; Start 05/19/21 at 13:00; Stop 05/19/21 at 13:02; Status DC Sodium Chloride 1,000 ml @ 100 mls/hr Q10H IV Last administered on 05/21/21at 11:00; Start 05/20/21 at 15:00 Active Scripts Active Pepcid (Famotidine) 20 Mg Tablet 20 Mg PO BID Reported Celebrex (Celecoxib) 200 Mg Capsule 2 Cap PO DAILY Vesicare (Solifenacin Succinate) 10 Mg Tablet 10 Mg PO DAILY Rosuvastatin Calcium 10 Mg Tablet 1 Tab PO QHS Flonase Allergy Relief (Fluticasone Propionate) 9.9 Ml [place].susp 2 Sprays NS DAILY Hydrocodone-Apap 7.5-325 (Hydrocodone Bit/Acetaminophen) 1 Each Tablet 1 Tab PO PRN Q6HRS PRN Xanax (Alprazolam) 0.5 Mg Tablet 0.5 Mg PO PRN Q4HRS PRN Aspir 81 (Aspirin) 81 Mg Tablet.dr 81 Mg PO DAILY Enalapril Maleate 20 Mg Tablet 20 Mg PO DAILY Citalopram Hbr (Citalopram Hydrobromide) 20 Mg Tablet 20 Mg PO DAILY Simvastatin 40 Mg Tablet 40 Mg PO DAILY Alprazolam 0.5 Mg Tablet 0.5 Mg PO BID Metoprolol Succinate ( Xl ) (Metoprolol Succinate) 25 Mg Tab.er.24h 50 Mg PO DAILY Vitals/I & O Vital Sign - Last 24 Hours 05/20/21 05/20/21 05/20/21 05/20/21 15:00 18:38 20:00 22:50 Temp 98.1 97.9 98.1 98.1 97.9 98.1 Pulse 62 62 66 Resp 18 18 18 B/P (MAP) 127/60 (82) 128/61 (83) 117/55 (75) Pulse Ox 97 98 98 O2 Delivery Room Air Room Air Room Air Room Air 05/21/21 05/21/21 05/21/21 05/21/21 02:40 06:35 08:00 08:10 Temp 97.9 98.1 97.9 98.1 Pulse 57 69 69 Resp 18 18 B/P (MAP) 133/60 (84) 139/62 (87) 139/62 Pulse Ox 95 98 O2 Delivery Room Air Room Air Room Air 05/21/21 11:00 Temp 97.7 97.7 Pulse 57 Resp 16 B/P (MAP) 159/67 (97) Pulse Ox 97 O2 Delivery Nasal Cannula Intake and Output 05/20/21 05/20/21 05/21/21 15:00 23:00 07:00 Intake Total 280 ml 240 ml 600 ml Output Total 1600 ml 300 ml Balance 280 ml -1360 ml 300 ml Justifications for Admission Other Justification AYSE LOCK MD May 21, 2021 14:58
[2021-05-21 15:00] VITALS: BP 168/69
[2021-05-21 18:41] VITALS: BP 151/72
[2021-05-21 23:20] VITALS: BP 134/63
[2021-05-22 03:00] VITALS: BP 152/67
[2021-05-22 05:33] LABS: CALCIUM 8.3 mg/dL (8.5-10.1); CREATININE 1.8 mg/dL (0.6-1.0); GFR 33.7; POTASSIUM 4.5 mmol/L (3.5-5.1)
[2021-05-22] MEDS: HEPARIN for SUB-Q USE 5,000 UNIT/ML VIAL. SQ SCH (05:59)
[2021-05-22 07:00] VITALS: BP 132/71
[2021-05-22] MEDS: IV NORMAL SALINE 1000ML BAG 1,000 ML IV SCH (07:00)
[2021-05-22] MEDS: FAMOTIDINE 20 MG TABLET. PO SCH (07:52)
[2021-05-22] MEDS: SENNOSIDES/DOCUSATE 8.6/50MG TABLET. PO SCH (07:52)
[2021-05-22] MEDS: ALPRAZolam 0.5 MG TABLET PO SCH (07:52)
[2021-05-22] MEDS: ASPIRIN ENTERIC COATED 81 MG TABLET.DR. PO SCH (07:53)
[2021-05-22] MEDS: METOPROLOL SUCC 24HR ER 25 MG TAB.ER.24H. PO SCH (07:54)
[2021-05-22] MEDS: SIMVASTATIN 40 MG TABLET. PO SCH (07:54)
[2021-05-22] MEDS: CITALOPRAM 20 MG TABLET. PO SCH (07:54)
[2021-05-22] MEDS: CALCIUM CARBONATE 500 MG TAB.CHEW PO PRN (08:51)
--- NOTE | 2021-05-22 10:53 | PDOC ---
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 05/22/21 1052: CARDIO Progress Notes Date and Time Date of Service 05/22/21 Time of Evaluation 1050 Subjective Subjective: Other (had episode of CP overnight that resolved with Tums.) Vitals Vitals Vital Signs Date Time Temp Pulse Resp B/P (MAP) Pulse Ox O2 Delivery O2 Flow Rate FiO2 05/22/21 08:00 Room Air 05/22/21 07:54 59 152/67 05/22/21 07:00 97.9 18 97 97.9 Weight Weight [ ] Input and Output Intake and Output Intake and Output 05/22/21 07:00 Intake Total 1180 ml Output Total 200 ml Balance 980 ml Intake Oral 1180 ml Output Urine Total 200 ml # Voids 1 # Bowel Movements 2 Laboratory Labs Laboratory Tests Test 05/21/21 11:03 05/22/21 04:15 Urine Random Creatinine 71.3 mg/dL (Not Establ.) Sodium Level 140 mmol/L (136-145) Potassium Level 4.5 mmol/L (3.5-5.1) Chloride Level 109 mmol/L (98-107) Carbon Dioxide Level 24 mmol/L (21-32) Anion Gap 7 (6-14) Blood Urea Nitrogen 21 mg/dL (7-20) Creatinine 1.8 mg/dL (0.6-1.0) Estimated GFR (Cockcroft-Gault) 33.7 Glucose Level 80 mg/dL (70-99) Calcium Level 8.3 mg/dL (8.5-10.1) Microbiology Micro Microbiology 05/19/21 Urine Culture - Final, Complete Physical Exam HEENT: Neck Supple W Full Motion Chest: Symmetric LUNGS: Clear to Auscultation Heart: RRR, no murmurs Extremities: No Edema Neurology: alert, oriented, follow commands Assessment Assessment 1. Chest pain, atypical. AMI ruled out. Most probably GI in nature. 2. Hypertension; now controlled 3. GERD, hiatal hernia; take Mylanta PRN. 4. SVETLANA on CKD, hyperkalemia; improved Recommendations PPI Consider outpatient ischemic evaluation Follow up in our office with Dr. Reyes as scheduled Justicifation of Admission Dx: Justifications for Admission: Justification of Admission Dx: N/A GRACIELA REYES MD 05/22/21 1712: CARDIO Progress Notes Plan Plan The patient was seen and interviewed as well as examined at the bedside. The chart was reviewed. The case was discussed. Agree with the plan of care. 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 APRN May 22, 2021 10:52 GRACIELA REYES MD May 22, 2021 17:12
[2021-05-22 10:54] VITALS: BP 137/62
[2021-05-22] MEDS ORDERED: SUCR1TAB35 PO (10:59)
[2021-05-22] MEDS ORDERED: OXYC1TAB15 PO (10:59)
--- NOTE | 2021-05-22 11:00 | SNU/HH DC ---
DISCHARGE WITH HOME HEALTH DISCHARGE INFORMATION: Final Diagnosis: Problems Medical Problems: (1) SVETLANA (acute kidney injury) Status: Acute (2) Chest pain Status: Acute Condition on Discharge: Stable CODE STATUS: Code Status: Full HOME HEALTH: Face to Face: I certify this patient is under my care and that I, or a nurse practitioner or physician's agency sales management assistant working with me, had a face to face encounter that meets the physician face to face encounter requirements with this patient on []. Medical Complications: Other (Recent admission for atypical chest pain/GERD) Fpc For: Assess & Educate Safety RN For Eval/Treatment: Yes Physical Therapy For: Evalulation/Treatment Occupational Therapy For: Evaluation/Treatment Home Health Aide For: Self-care CEILING CLEANER For: Community Resources Pt Meets Homebound Status: Unsteady balance w/ amb, POST DISCHARGE ORDERS: DIET AFTER DISCHARGE: Cardiac CERTIFICATION STATEMENT: Certification Statement: Certification Statement: Based on the above finding, I certify that this patient is confined to the home and needs intermittent penitentiary care, physical therapy and/or speech therapy, or continues to need occupational therapy.~ This patient is under my care, and I have initiated the establishment of the plan of care.~ This patient will be followed by myself or a community physician who will periodically review the plan of care. Home Meds Active Scripts Sucralfate (CARAFATE) 1 Gm Tablet, 1 TAB PO QID for . for 30 Days, #120 TAB 0 Refills Prov:CASTLE,NIAL K III DO 05/22/21 Oxycodone/Apap 5-325 (PERCOCET 5-325 MG TABLET ) 1 Each Tablet, 1 TAB PO PRN Q4HRS PRN for MILD PAIN 1-3 for 7 Days, #14 TAB Prov:REBECCA SLATERL K III DO 05/22/21 Famotidine (PEPCID) 20 Mg Tablet, 20 MG PO BID, #20 TAB Prov:ANAND ANDERS DO 02/01/20 Reported Medications Celecoxib (CELEBREX) 200 Mg Capsule, 2 CAP PO DAILY for arthritis, #30 CAP 2 Refills 05/18/21 Solifenacin Succinate (VESICARE) 10 Mg Tablet, 10 MG PO DAILY for OAB, TAB 05/18/21 Rosuvastatin Calcium (Rosuvastatin Calcium) 10 Mg Tablet, 1 TAB PO QHS for cholesterol 05/18/21 Fluticasone Propionate (Flonase Allergy Relief) 9.9 Ml [place].susp, 2 SPRAYS NS DAILY for allergies, ML 05/18/21 Hydrocodone Bit/Acetaminophen (HYDROCODONE-APAP 7.5-325 ) 1 Each Tablet, 1 TAB PO PRN Q6HRS PRN for PAIN, TAB 0 Refills 05/22/15 Alprazolam (XANAX) 0.5 Mg Tablet, 0.5 MG PO PRN Q4HRS PRN for ANXIETY / AGITATION, TAB 0 Refills 05/22/15 Aspirin (ASPIR 81) 81 Mg Tablet.dr, 81 MG PO DAILY, TAB 05/22/15 Enalapril Maleate (ENALAPRIL MALEATE) 20 Mg Tablet, 20 MG PO DAILY, TAB 05/22/15 Citalopram Hydrobromide (CITALOPRAM HBR) 20 Mg Tablet, 20 MG PO DAILY, TAB 05/22/15 Simvastatin (SIMVASTATIN) 40 Mg Tablet, 40 MG PO DAILY for cholesterol, #30 TAB 0 Refills 05/22/15 Alprazolam (ALPRAZOLAM) 0.5 Mg Tablet, 0.5 MG PO BID for ANXIETY / AGITATION, TAB 0 Refills 05/22/15 Metoprolol Succinate (METOPROLOL SUCCINATE ( XL )) 25 Mg Tab.er.24h, 50 MG PO DAILY for FOR HYPERTENSION, #30 TAB 0 Refills 05/22/15 JASON SLATER III DO May 22, 2021 11:00
--- NOTE | 2021-05-22 12:30 | PDOC ---
Renal-Progress Notes Subjective Notes Notes NO MORE CHEST PAIN History of Present Illness Hx of present illness STABLE Vitals Vitals Vital Signs Date Time Temp Pulse Resp B/P (MAP) Pulse Ox O2 Delivery O2 Flow Rate FiO2 05/22/21 10:54 97.3 54 18 137/62 (87) 97 Room Air 97.3 Weight Weight [ ] I.O. Intake and Output Intake and Output 05/22/21 07:00 Intake Total 1180 ml Output Total 200 ml Balance 980 ml Intake Oral 1180 ml Output Urine Total 200 ml # Voids 1 # Bowel Movements 2 Labs Labs Laboratory Tests Test 05/22/21 04:15 Sodium Level 140 mmol/L (136-145) Potassium Level 4.5 mmol/L (3.5-5.1) Chloride Level 109 mmol/L (98-107) Carbon Dioxide Level 24 mmol/L (21-32) Anion Gap 7 (6-14) Blood Urea Nitrogen 21 mg/dL (7-20) Creatinine 1.8 mg/dL (0.6-1.0) Estimated GFR (Cockcroft-Gault) 33.7 Glucose Level 80 mg/dL (70-99) Calcium Level 8.3 mg/dL (8.5-10.1) Micro Micro Microbiology 05/19/21 Urine Culture - Final, Complete Review of Systems Constitutional: yes: weakness, alert, oriented Ears/Nose/Throat: Yes: no symptom reported Eyes: Yes: no symptom reported Pulmonary: Yes no symptom reported Cardiovascular: Yes no symptom reported Gastrointestional: Yes: no symptom reported Genitourinary: Yes: other (OCC NOCTURIA) Musculoskeletal: Yes: no symptom reported Psychiatric/Neurological: Yes: no symptom reported Endocrine: Yes: no symptom reported Physical Exam General Appearance: no apparent distress Skin: warm Respiratory: decreased breath sounds Heart: S1S2 Abdomen: soft, bowel sounds present Genitourinary: bladder flat Extremities: pulses present, no edema Neurology: alert Assessment Assessment IMP ATYPICAL CHEST PAIN LABILE HTN HYPERKALEMIA-RESOLVED SVETLANA RESOLVED-CR OF 2.4 ON ADMIT CKD STAGE 3-CR STABLE AT 1.8 PLAN STOP IVF'S HAVE ASKED PT TO FOLLOW UP AT DISCHARGE IN RENAL CLINIC WILL FOLLOW TITA JETT MD May 22, 2021 12:30
--- NOTE | 2021-05-22 12:30 | DS ---
DATE OF DISCHARGE: 05/22/2021 ADMITTING DIAGNOSES: Chest pain, acute kidney injury, DISCHARGE DIAGNOSES: Atypical chest pain, suspect GI etiology. Resolving acute kidney injury, chronic stage 3 kidney disease and resolving hyperkalemia, history of coronary artery disease. CONSULTATIONS: Cardiology and Nephrology. HOSPITAL COURSE: The patient is a pleasant, middle-aged female who presented with chest discomfort. We admitted her. The above consults were obtained. We did serial enzymes, serial EKGs. What helped most with her pain was a GI cocktail and Pepcid, etc. Today, I saw and examined her. She is at her baseline. We plan to discharge. DISPOSITION: Home. ACTIVITY: As tolerated. DIET: Low sodium. DISCHARGE MEDICATIONS: I gave her prescriptions for Pepcid 20 b.i.d., Carafate 1 gram q.i.d., continue oxycodone 5 mg q.6 hours p.r.n., Xanax 0.5 a day, aspirin 81 a day, Celebrex 200 a day, citalopram 20 a day, enalapril 20 a day, Flonase, metoprolol 25 daily, rosuvastatin 10 a day and VESIcare. TOTAL TIME: [address]: Oni TID: [id number]
--- NOTE | 2021-05-22 14:52 | NUR ---
DISCHARGE PIV ET TELE DISCONTINUED. DISCHARGE INFORMATION REVIEWED WITH PATIENT. DISCHARGE MEDICATIONS REVIEWED WITH PATIENT. FOLLOW UP APPOINTMENT WITH DR RINALDI MADE FOR 06/23/21 AT 0915. ALL QUESTIONS ANSWERED TO PATIENT SATISFACTION. ESCORTED TO FRONT VIA WHEELCHAIR BY STAFF.
== END 2021-05-22 14:45 | disposition home or self-care (01) | DRG 313 ==
LOC: ER 18:08 → 6 SOUTH 19:01
PROVIDERS: ADMIT Student in an Organized Health Care Education/Training Program; ATTEND Student in an Organized Health Care Education/Training Program
DX: R07.89 Other chest pain (principal); N17.0 Acute kidney failure with tubular necrosis; E66.9 Obesity, unspecified; Z68.38 Body mass index [BMI] 38.0-38.9, adult; E78.00 Pure hypercholesterolemia, unspecified; E78.5 Hyperlipidemia, unspecified; E87.5 Hyperkalemia; I12.9 Hypertensive chronic kidney disease with stage 1 through stage 4 chronic kidney disease, or unspecified chronic kidney disease; I25.10 Atherosclerotic heart disease of native coronary artery without angina pectoris; K21.9 Gastro-esophageal reflux disease without esophagitis; K44.9 Diaphragmatic hernia without obstruction or gangrene; Z96.659 Presence of unspecified artificial knee joint; G89.29 Other chronic pain; N18.30 Chronic kidney disease, stage 3 unspecified; Z68.37 Body mass index [BMI] 37.0-37.9, adult; Z87.891 Personal history of nicotine dependence; Z90.710 Acquired absence of both cervix and uterus; Z98.61 Coronary angioplasty status; I25.2 Old myocardial infarction
CPT/HCPCS: 36415; 71045; 76770; 80048; 80053; 80069; 81001; 82570; 84300; 84484; 85025; 87086; 93005; J1644; J7030; 99285-25; G0378

== ENCOUNTER 2021-06-08 11:01 | Inpatient (IN) | payer MEDICARE, OTHER ==
[2021-06-08] VITALS (9 sets, daily range): BP systolic 115–158; BP diastolic 59–81
[~2021-06-08] VITALS: Ht 167.6 cm; Wt 90.8 kg
[~2021-06-08 11:01] MED LIST changes: +ASPI-630 PO; +CELE200C PO; +FLUT9.9S NS; +OXYC1TAB15 PO; +ROSU10TA26 PO; +SOLI10TA2 PO; +SUCR1TAB35 PO
[2021-06-08 11:23] LABS: BASO % 1 % (0-3); EOS # 0.1 x10^3/uL (0.0-0.7); EOS % 2 % (0-3); HEMATOCRIT 41.6 % (36.0-47.0); HEMOGLOBIN 13.1 g/dL (12.0-15.5); LYMPH # 2.3 x10^3/uL (1.0-4.8); LYMPH % 35 % (24-48); MEAN CORPUSCULAR HEMOGLOBIN 26 pg (25-35); MEAN CORPUSCULAR HGB CONC 32 g/dL (31-37); MEAN CORPUSCULAR VOLUME 82 fL (79-100); MONO # 0.6 x10^3/uL (0.0-1.1); MONO % 10 % (0-9); NEUT # 3.5 x10^3/uL (1.8-7.7); NEUT % 53 % (31-73); PLATELET COUNT 265 x10^3/uL (140-400); RED CELL DISTRIBUTION WIDTH 14.7 % (11.5-14.5); WHITE BLOOD COUNT 6.6 x10^3/uL (4.0-11.0)
--- NOTE | 2021-06-08 11:23 | PHYS DOC ---
Past Medical History Past Medical History: High Cholesterol, Hypertension, [place] Past Surgical History: Hysterectomy, Knee Replacement, Other Additional Past Surgical Histo: cardiac balloon, bilat knee, rotator cuff surgery Smoking Status: Former Smoker Alcohol Use: None Drug Use: None General Adult HPI: HPI: Patient is a 71 year old female who presents with left sided sharp chest pain that she states got worse since 10:00 this morning. She is not taking any of her blood pressure medications. Denies any nausea, vomiting, abdominal pain, fever, cough Review of Systems: Review of Systems: Constitutional: Denies fever or chills. [] Eyes: Denies change in visual acuity. [] HENT: Denies nasal congestion or sore throat. [] Respiratory: Denies cough or + intermittent shortness of breath. [] Cardiovascular: + chest pain or denies edema. [] GI: Denies abdominal pain, nausea, vomiting, bloody stools or diarrhea. [] : Denies dysuria. [] Musculoskeletal: Denies back pain or joint pain. [] Integument: Denies rash. [] Neurologic: Denies headache, focal weakness or sensory changes. [] Endocrine: Denies polyuria or polydipsia. [] Lymphatic: Denies swollen glands. [] Psychiatric: Denies depression or anxiety. [] Heart Score: C/O Chest Pain: Yes HEART Score for Chest Pain: HEART Score for Chest Pain Response (Comments) Value History Slighlty/Non-Suspicious 0 ECG Nonspecific Repolarizatio 1 Age > 65 2 Risk Factors >3 Risk Factors or Hx CAD 2 Troponin < Normal Limit 0 Total 5 Risk Factors: Risk Factors: DM, Current or recent (<one month) smoker, HTN, HLP, family history of CAD, obesity. Risk Scores: Score 0 - 3: 2.5% MACE over next 6 weeks - Discharge Home Score 4 - 6: 20.3% MACE over next 6 weeks - Admit for Clinical Observation Score 7 - 10: 72.7% MACE over next 6 weeks - Early Invasive Strategies Current Medications: Current Medications Medications (Trade) Dose Ordered Sig/Jennifer Start Time Stop Time Status Last Admin Dose Admin Aspirin (Aspirin Chewable) 324 mg 1X ONCE 06/08/21 11:30 06/08/21 11:31 Famotidine (Pepcid Vial) 20 mg 1X ONCE 06/08/21 11:15 06/08/21 11:16 UNV Fentanyl Citrate (Fentanyl 2ml Vial) 50 mcg 1X ONCE 06/08/21 11:30 06/08/21 11:31 Nitroglycerin (Nitrostat) 0.4 mg PRN Q5MIN PRN 06/08/21 11:15 Allergies: Allergies: Allergies Coded Allergies Type Severity Reaction Last Updated Verified No Known Drug Allergies 05/18/21 No Physical Exam: PE: Constitutional: Well developed, well nourished, no acute distress, non-toxic appearance. [] HENT: Normocephalic, atraumatic, bilateral external ears normal, oropharynx moist, no oral exudates, nose normal. [] Eyes: PERRLA, EOMI, conjunctiva normal, no discharge. [] Neck: Normal range of motion, no tenderness, supple, no stridor. [] Cardiovascular:Heart rate tachycardia regular rhythm, no murmur [] Lungs & Thorax: Bilateral upper breath sounds clear and lower diminished to auscultation [] Abdomen: Bowel sounds normal, soft, no tenderness, no masses, no pulsatile masses. [] Skin: Warm, dry, no erythema, no rash. [] Back: No tenderness, no CVA tenderness. [] Extremities: No tenderness, no cyanosis, no clubbing, ROM intact, no edema. [] Neurologic: Alert and oriented X 3, normal motor function, normal sensory function, no focal deficits noted. [] Psychologic: Affect normal, judgement normal, mood normal. [] EKG: EK and read by Dr. Sibley as a sinus tachycardia but with slight depression less than 1 mm in V1 and aVL, no STEMI [address] Sibley as sinus rhythm but with slight depression less than 1 mm in V1 and aVL, no STEMI Radiology/Procedures: Radiology/Procedures: [] Impression: [facility] [address] [place] [address] IMAGING REPORT Signed PATIENT: PERFECTO SHARMA ACCOUNT: [id number] : 1950 LOCATION: ER AGE: 71 SEX: F EXAM STATUS: PRE ER ORD. PHYSICIAN: TROY GARCIA APRN REASON: chest pain PROCEDURE: PORTABLE CHEST 1V EXAM: Chest, single view. HISTORY: Chest pain. COMPARISON: 05/18/2021 FINDINGS: A frontal view of the chest is obtained. There is mild diffuse increased interstitial opacity. There is no consolidation, pleural effusion or pneumothorax. The heart is normal in size. There is a hiatal hernia. IMPRESSION: Diffuse increased interstitial opacity due to chronic interstitial change or interstitial infiltrate. Electronically signed by: Yesenia Aldridge MD (06/08/2021 11:25 AM) [id number] DICTATED and SIGNED BY: YESENIA ALDRIDGE MD DATE: 06/08/21 1125 [facility] [address] [place], [place] [id number] IMAGING REPORT Signed PATIENT: PERFECTO SHARMA ACCOUNT: [id number] : 1950 LOCATION: ER AGE: 71 SEX: F EXAM STATUS: PRE ER ORD. PHYSICIAN: TROY GARCIA APRN REASON: severe left chest pain after a EGD, colonoscopy yesterday PROCEDURE: CT CHEST ABDOMEN PELVIS WO EXAM: Chest, abdomen and pelvis CT with intravenous contrast. HISTORY: Pain after EGD. TECHNIQUE: Computed tomographic images of the chest, abdomen and pelvis were obtained following the administration of intravenous contrast. Multiplanar reformatting was performed. *One or more of the following individualized dose reduction techniques were utilized for this examination: 1. Automated exposure control. 2. Adjustment of the mA and/or kV according to patient size. 3. Use of iterative reconstruction technique. COMPARISON: None. FINDINGS: Chest: The heart is normal in size. There is coronary artery calcification. The aorta is normal in caliber. There is aortic and aortic branch vessel calcified atherosclerotic plaque. There is no mediastinal or hilar lymphadenopathy. There is a moderate to large hiatal hernia. There is air and food bolus or mucus within the herniated stomach. There is no pneumothorax. There is no pleural effusion. There is mild emphysema and mild air trapping. There is bilateral infrahilar compressive atelectasis. There is no infiltrate. There is no suspicious pulmonary nodule. Abdomen and pelvis: No hepatic lesion is seen. The gallbladder, pancreas, spleen and adrenal glands are unremarkable. There is mild renal atrophy. There is no appendicitis. There is moderate colonic stool. There is colonic diverticulosis. There is no convincing diverticulitis. The bladder is unremarkable. The uterus is absent. There is aortic and aortic branch vessel atherosclerosis. There is no lymphadenopathy. There is no acute or suspicious osseous finding. IMPRESSION: 1. Moderate to large hiatal hernia containing a portion of the stomach. There is associated bilateral infrahilar compressive atelectasis. 2. Colonic diverticulosis. 3. Mild emphysema and bilateral air trapping. No consolidated infiltrate is seen. Electronically signed by: Yesenia Aldridge MD (06/08/2021 12:16 PM) [id number] DICTATED and SIGNED BY: YESENIA ALDRIDGE MD DATE: 06/08/211211 Course & Med Decision Making: Course & Med Decision Making Pertinent Labs and Imaging studies reviewed. (See chart for details) See HPI. Alert and oriented x4. Lungs are clear in upper lobes and diminished in lower lobes. Speaks in full clear sentences. Tearful. States she has had this pain before in the past but the left upper chest is a sharp type pain and its gotten worse since 10:00 this morning. Tachycardic. Has not taken her blood pressure medications yet this morning. Abdomen soft and nontender. She states she is passing gas. EKG today compared to last month on May 18 there are changes. Patient's troponin is also elevated at 280. Last month her troponin was normal. Patient's heart attack was back in 2000. Patient is refusing to take the nitro sublingual to see if this helps her pain and states it is not her chest or her heart and it is thought to be her hiatal hernia. However the patient did take 324 mg aspirin, Pepcid, fentanyl. I have ordered a CT chest abdomen pelvis was was unable to do it with iodine contrast due to the patient's GFR. I have spoken to Dr. Marquez and sent him the EKGs to look at. He states that they will come see the patient. Patient will be admitted to the hospitalist. [] Taylor Disclaimer: Taylor Disclaimer: This electronic medical record was generated, in whole or in part, using a voice recognition dictation system. Departure Departure Impression: Primary Impression: NSTEMI (non-ST elevated myocardial infarction) Disposition: ADMITTED INPATIENT Admitting Physician: NATE Condition: STABLE Referrals: MAYRA STRATTON MD (PCP) TROY GARCIA APRN Jun 08, 2021 11:23
--- NOTE | 2021-06-08 11:28 | RAD ---
EXAM: Chest, single view. HISTORY: Chest pain. COMPARISON: 05/18/2021 FINDINGS: A frontal view of the chest is obtained. There is mild diffuse increased interstitial opaci ty. There is no consolidation, pleural effusion or pneumothorax. The heart is normal in size. There i s a hiatal hernia. IMPRESSION: Diffuse increased interstitial opacity due to chronic interstitial change or interstitial infiltrate. Electronically signed by: Yesenia Gotti MD (06/08/2021 11:25 AM) [id number]
--- NOTE | 2021-06-08 11:28 | EKG ---
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
[2021-06-08] MEDS ORDERED: ASPIRIN CHEWABLE 81 MG TABLET. PO ONE (11:30)
[2021-06-08] MEDS ORDERED: FAMOTIDINE 20 MG/2 ML VIAL IVP ONE (11:30)
[2021-06-08] MEDS ORDERED: fentaNYL PF VIAL 100 MCG/2 ML VIAL IVP ONE (11:30)
[2021-06-08 11:35] LABS: CALCIUM 9.5 mg/dL (8.5-10.1); CREATININE 2.3 mg/dL (0.6-1.0); GFR 25.4; POTASSIUM 4.4 mmol/L (3.5-5.1)
[2021-06-08 11:39] LABS: ALBUMIN 4.2 g/dL (3.4-5.0); TOTAL BILIRUBIN 0.6 mg/dL (0.2-1.0); TOTAL PROTEIN 8.6 g/dL (6.4-8.2)
--- NOTE | 2021-06-08 11:52 | EKG ---
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
--- NOTE | 2021-06-08 12:19 | RAD ---
EXAM: Chest, abdomen and pelvis CT with intravenous contrast. HISTORY: Pain after EGD. TECHNIQUE: Computed tomographic images of the chest, abdomen and pelvis were obtained following the a dministration of intravenous contrast. Multiplanar reformatting was performed. *One or more of the following individualized dose reduction techniques were utilized for this examina tion: 1. Automated exposure control. 2. Adjustment of the mA and/or kV according to patient size. 3. Use of iterative reconstruction technique. COMPARISON: None. FINDINGS: Chest: The heart is normal in size. There is coronary artery calcification. The aorta is no rmal in caliber. There is aortic and aortic branch vessel calcified atherosclerotic plaque. There is no mediastinal or hilar lymphadenopathy. There is a moderate to large hiatal hernia. There is air and food bolus or mucus within the herniated stomach. There is no pneumothorax. There is no pleural effu corey. There is mild emphysema and mild air trapping. There is bilateral infrahilar compressive atelec tasis. There is no infiltrate. There is no suspicious pulmonary nodule. Abdomen and pelvis: No hepatic lesion is seen. The gallbladder, pancreas, spleen and adrenal glands a re unremarkable. There is mild renal atrophy. There is no appendicitis. There is moderate colonic sto ol. There is colonic diverticulosis. There is no convincing diverticulitis. The bladder is unremarkab le. The uterus is absent. There is aortic and aortic branch vessel atherosclerosis. There is no lymph adenopathy. There is no acute or suspicious osseous finding. IMPRESSION: 1. Moderate to large hiatal hernia containing a portion of the stomach. There is associated bilateral infrahilar compressive atelectasis. 2. Colonic diverticulosis. 3. Mild emphysema and bilateral air trapping. No consolidated infiltrate is seen. Electronically signed by: Yesenia Gotti MD (06/08/2021 12:16 PM) [id number]
[2021-06-08] MEDS: NITROGLYCERIN SUBLINGUAL 0.4 MG BOTTLE OF 25. SL PRN (12:24)
--- NOTE | 2021-06-08 12:24 | PDOC2 ---
JASS KELLOGG FAMILY SERVICES COORDINATOR 06/08/21 1223: CARDIAC CONSULT DATE OF CONSULT Date of Consult DATE: 06/08/21 TIME: 12:10 REASON FOR CONSULT Reason for Consult: Chest pain REFERRING PHYSICIAN Referring Physician: Sonya SOURCE Source: Chart review, Patient HISTORY OF PRESENT ILLNESS HISTORY OF PRESENT ILLNESS This is a pleasant 71 yo female admitted for complains of chest pain. Reports that she has been having stabbing left chest pain intermittent started Saturday and more pronounced today. This is associated with indigestion, diaphoresis and SOA. No orthopnea or PND. She has been having exertional SOA as well, has stairs at home and stopping in between to catch her breath. No vomiting, fever or chills. She had fall first week of May but no apparent injury and she missed a step otherwise no syncopal spell. She is vaccinated for covid-19. PAST MEDICAL HISTORY Cardiovascular: CAD, HTN, Hyperlipidemia Pulmonary: Other (ALINA CPAP hs) GI: GERD, Other (hiatal hernia) Psych: Anxiety Musculoskeletal: Osteoarthritis Renal/: UTI PAST SURGICAL HISTORY Past Surgical History: Arthroscopy (RTC repair), Total knee replacement (bilateral), Hysterectomy, Other (PCI 1994) FAMILY HISTORY Family History noncontributory to CV SOCIAL HISTORY Smoke: Quit ALCOHOL: none Drugs: None Lives: with Family CURRENT MEDICATIONS CURRENT MEDICATIONS Current Medications Medications (Trade) Dose Ordered Sig/Jennifer Route PRN Reason Start Time Stop Time Status Last Admin Dose Admin Fentanyl Citrate (Fentanyl 2ml Vial) 50 mcg 1X ONCE IVP 06/08/21 11:30 06/08/21 11:31 DC 06/08/21 11:30 Aspirin (Aspirin Chewable) 324 mg 1X ONCE PO 06/08/21 11:30 06/08/21 11:31 DC 06/08/21 11:30 Famotidine (Pepcid Vial) 20 mg 1X ONCE IVP 06/08/21 11:30 06/08/21 11:31 DC 06/08/21 11:30 ALLERGIES ALLERGIES: Coded Allergies: No Known Drug Allergies (Unverified , 06/08/21) ROS Review of System 14 point ROS evaluated with pertinent positives noted per HPI PHYSICAL EXAM General: Alert, Oriented X3, Cooperative, No acute distress HEENT: Atraumatic, Mucous membr. moist/pink Lungs: Clear to auscultation, Normal air movement Heart: Regular rate (sinus tachycardia), Normal S1, Normal S2, Other (3/6 systolic murmur to CHANDLER border) Abdomen: Soft, No tenderness Extremities: No cyanosis, No edema Skin: No breakdown, No significant lesion Neuro: Normal speech, Sensation intact Psych/Mental Status: Mental status NL, Mood NL MUSCULOSKELETAL: Osteoarthritic changes both hands VITALS/I&O VITALS/I&O: Vital Signs Date Time Temp Pulse Resp B/P (MAP) Pulse Ox O2 Delivery O2 Flow Rate FiO2 06/08/21 11:46 99 17 178/79 (112) 97 Room Air 06/08/21 11:05 97.5 97.5 LABS Lab: Laboratory Tests Test 06/08/21 11:14 White Blood Count 6.6 x10^3/uL (4.0-11.0) Red Blood Count 5.10 x10^6/uL (3.50-5.40) Hemoglobin 13.1 g/dL (12.0-15.5) Hematocrit 41.6 % (36.0-47.0) Mean Corpuscular Volume 82 fL (79-100) Mean Corpuscular Hemoglobin 26 pg (25-35) Mean Corpuscular Hemoglobin Concent 32 g/dL (31-37) Red Cell Distribution Width 14.7 % (11.5-14.5) H Platelet Count 265 x10^3/uL (140-400) Neutrophils (%) (Auto) 53 % (31-73) Lymphocytes (%) (Auto) 35 % (24-48) Monocytes (%) (Auto) 10 % (0-9) H Eosinophils (%) (Auto) 2 % (0-3) Basophils (%) (Auto) 1 % (0-3) Neutrophils # (Auto) 3.5 x10^3/uL (1.8-7.7) Lymphocytes # (Auto) 2.3 x10^3/uL (1.0-4.8) Monocytes # (Auto) 0.6 x10^3/uL (0.0-1.1) Eosinophils # (Auto) 0.1 x10^3/uL (0.0-0.7) Basophils # (Auto) 0.0 x10^3/uL (0.0-0.2) Sodium Level 140 mmol/L (136-145) Potassium Level 4.4 mmol/L (3.5-5.1) Chloride Level 103 mmol/L (98-107) Carbon Dioxide Level 25 mmol/L (21-32) Anion Gap 12 (6-14) Blood Urea Nitrogen 24 mg/dL (7-20) H Creatinine 2.3 mg/dL (0.6-1.0) H Estimated GFR (Cockcroft-Gault) 25.4 BUN/Creatinine Ratio 10 (6-20) Glucose Level 197 mg/dL (70-99) H Calcium Level 9.5 mg/dL (8.5-10.1) Total Bilirubin 0.6 mg/dL (0.2-1.0) Aspartate Amino Transferase (AST) 18 U/L (15-37) Alanine Aminotransferase (ALT) 23 U/L (14-59) Alkaline Phosphatase 110 U/L (46-116) Troponin I High Sensitivity 280 ng/L (4-50) H JQ-Vas-C-Type Natriuretic Peptide 1112 pg/mL (0-124) H Total Protein 8.6 g/dL (6.4-8.2) H Albumin 4.2 g/dL (3.4-5.0) Albumin/Globulin Ratio 1.0 (1.0-1.7) Lipase 68 U/L (73-393) L Laboratory Tests 06/08/21 11:14 Laboratory Tests 06/08/21 11:14 ECHOCARDIOGRAM ECHOCARDIOGRAM <Conclusion> The left ventricle is normal size. There is normal left ventricular wall thickness. The left ventricular systolic function is normal and the ejection fraction is within normal range. The Ejection Fraction is 55-60%. There is a Grade I diastolic dysfunctio There is no evidence of significant pericardial effusion. There is no mitral valve stenosis. Doppler and Color-flow revealed trace mitral regurgitation. The left atrium is of a normal size There is no significant aortic valvular stenosis. Doppler and Color Flow revealed mild to moderate aortic regurgitation. The right ventricle and right atrium are of a normal size The tricuspid valve is normal in structure and function. The pulmonary valve is normal in structure and function. DATE: 05/23/152037 STRESS TEST STRESS TEST Conclusion 1. No electrocardiographic changes suggestive of myocardial ischemia with pharmacological stress. 2. No significant perfusion defects to suggest myocardial ischemia or scar on the stress study. 3. There is thus no need to do the rest study. 4. Normal wall thickening and vigorous contractility with an ejection fraction of more than 80%. 5. Scan indicates low risk for future cardiac events. DATE: 05/23/152030 ASSESSMENT/PLAN ASSESSMENT/PLAN 1. Chest pain: mixed features, better currently after NTG 2. CAD: PTCA 1994 3. HTN urgency: improving 4. HLP 5. NSTEMI: sinus tachycardia but no acute EKG changes 6. SVETLANA on CKD3 7. Hyperglycemia 8. Systolic murmur Recommendations 1. ASA. Start on NTG paste. Heparin drip 2. TTE, TSH, FLP, A1C 3. Start on IVF and consult nephrology 4. High probability for CAD. [facility] will plan for tomorrow. Discussed with pt and daughter, risks and benefits and agreeable to proceed. 5. Secondary prevention measures MANNY SHAH MD 06/08/212129: CARDIAC CONSULT ASSESSMENT/PLAN ASSESSMENT/PLAN Patient seen and examined. Agree with [facility]ENER's assessment and plan. Patient with h/o CAD presenting with CP with typical features, relieved with NTG, trop elevated c/w NSTEMI Agree with cardiac cath and possible PCI Continue hep gtt Consult nephrology for ac on chr renal insuff Check 2D echo Thank you for your consultation JASS KELLOGG APRN Jun 08, 2021 12:23 MANNY SHAH MD Jun 08, 2021 21:30
[2021-06-08] MEDS ORDERED: LABETALOL 20 MG/4 ML DISP.SYRIN. IVP PRN (12:30)
[2021-06-08] MEDS ORDERED: HEPARIN for IV BOLUS 10,000 UNIT/10 ML VIAL. IV PRN (13:00)
[2021-06-08] MEDS ORDERED: HEPARIN 25,000UTS/250ML PREMIX 250 ML IV PRN (13:00)
[2021-06-08] MEDS ORDERED: IV NORMAL SALINE 1000ML BAG 1,000 ML IV ONE (13:00)
[2021-06-08] MEDS: METOPROLOL SUCC 24HR ER 50 MG TAB.ER.24H. PO SCH (13:00)
[2021-06-08] MEDS: NITROGLYCERIN OINT 1 GM PACKET. TP SCH ×3 (13:00→23:08)
[2021-06-08] MEDS ORDERED: LIDO:MAALOX 1:1 20 ML SINGLE DOSE. PO PRN (13:15)
[2021-06-08 13:16] LABS: CHOLESTEROL/HDL RATIO 4.7
--- NOTE | 2021-06-08 15:29 | PDOC1 ---
History and Physical Date of Service: DOS: DATE: 06/08/21 TIME: 15:29 Allergies: Allergies: Coded Allergies: No Known Drug Allergies (Unverified , 06/08/21) Current Medications: Current Medications Current Medications Nitroglycerin (Nitrostat) 0.4 mg PRN Q5MIN PRN SL CHEST PAIN Last administered on 06/08/21at 12:24; Start 06/08/21 at 11:15 Fentanyl Citrate (Fentanyl 2ml Vial) 50 mcg 1X ONCE IVP Last administered on 06/08/21at 11:30; Start 06/08/21 at 11:30; Stop 06/08/21 at 11:31; Status DC Aspirin (Aspirin Chewable) 324 mg 1X ONCE PO Last administered on 06/08/21at 11:30; Start 06/08/21 at 11:30; Stop 06/08/21 at 11:31; Status DC Famotidine (Pepcid Vial) 20 mg 1X ONCE IVP Last administered on 06/08/21at 11:30; Start 06/08/21 at 11:30; Stop 06/08/21 at 11:31; Status DC Labetalol HCl (Normodyne Iv Push) 20 mg PRN Q2HRS PRN IVP SBP>170 or DBP>110; Start 06/08/21 at 12:30 Aspirin (Ecotrin) 81 mg DAILY PO ; Start 06/09/21 at 09:00 Metoprolol Succinate (Toprol Xl) 50 mg DAILY PO Last administered on 06/08/21at 13:00; Start 06/08/21 at 13:00 Simvastatin (Zocor) 40 mg QHS PO ; Start 06/08/21 at 21:00; Stop 06/08/21 at 14 :15; Status DC Multi-Ingredient Mouthwash/Gargle (Gi Cocktail) 20 ml PRN QID PRN PO CHEST PAIN; Start 06/08/21 at 13:15 Heparin Sodium/ Dextrose 250 ml @ 10 mls/hr CONT PRN IV PER PROTOCOL Last administered on 06/08/21at 13:18; Start 06/08/21 at 13:00 Heparin Sodium (Porcine) (Heparin Sodium) 3,000 unit PRN Q6HRS PRN IV FOR UFH LEVEL LESS THAN 0.2; Start 06/08/21 at 13:00 Nitroglycerin (Nitro-Bid Oint) 1 inch Q6HRS TP Last administered on 06/08/21at 13:00; Start 06/08/21 at 13:00 Sodium Chloride 1,000 ml @ 75 mls/hr 1X ONCE IV Last administered on 06/08/21at 13:00; Start 06/08/21 at 13:00; Stop 06/09/21 at 02:19 Atorvastatin Calcium (Lipitor) 40 mg QHS PO ; Start 06/08/21 at 21:00 Active Scripts Active Carafate (Sucralfate) 1 Gm Tablet 1 Tab PO QID 30 Days Percocet 5-325 Mg Tablet (Oxycodone/Acetaminophen) 1 Each Tablet 1 Tab PO PRN Q4HRS PRN 7 Days Pepcid (Famotidine) 20 Mg Tablet 20 Mg PO BID Reported Celebrex (Celecoxib) 200 Mg Capsule 2 Cap PO DAILY Vesicare (Solifenacin Succinate) 10 Mg Tablet 10 Mg PO DAILY Flonase Allergy Relief (Fluticasone Propionate) 9.9 Ml [place].susp 2 Sprays NS DAILY Hydrocodone-Apap 7.5-325 (Hydrocodone Bit/Acetaminophen) 1 Each Tablet 1 Tab PO PRN Q6HRS PRN Xanax (Alprazolam) 0.5 Mg Tablet 0.5 Mg PO PRN Q4HRS PRN Aspir 81 (Aspirin) 81 Mg Tablet.dr 81 Mg PO DAILY Enalapril Maleate 20 Mg Tablet 20 Mg PO DAILY Citalopram Hbr (Citalopram Hydrobromide) 20 Mg Tablet 20 Mg PO DAILY Simvastatin 40 Mg Tablet 40 Mg PO DAILY Alprazolam 0.5 Mg Tablet 0.5 Mg PO BID Metoprolol Succinate ( Xl ) (Metoprolol Succinate) 25 Mg Tab.er.24h 50 Mg PO DAILY ROS: Review of Systems Review of System REVIEW OF SYSTEMS: GENERAL: Denies weakness SKIN: No bruising, hair changes or rashes. EYES: No blurred, double or loss of vision. NOSE AND THROAT: No history of nosebleeds, hoarseness or sore throat. HEART: No history of palpitations, chest pain or shortness of breath on exertion. LUNGS: Denies cough, hemoptysis, wheezing or shortness of breath. GASTROINTESTINAL: Denies changes in appetite, nausea, vomiting, diarrhea or constipation. GENITOURINARY: No history of frequency, urgency, hesitancy or nocturia. NEUROLOGIC: Denies history of numbness, tingling, or tremor. PSYCHIATRIC: No history of panic, anxiety or depression. ENDOCRINE: No history of heat or cold intolerance, polyuria or polydipsia. EXTREMITIES: Denies joint pain, pain on walking or stiffness. Physical Exam: Vital Signs: Vital Signs Date Time Temp Pulse Resp B/P (MAP) Pulse Ox O2 Delivery O2 Flow Rate FiO2 06/08/21 14:40 85 14 128/81 (97) 98 Room Air 06/08/21 11:05 97.5 97.5 Physcial Exam: GEN: No apparent distress. Alert and oriented HEENT: Normal cephalic, atraumatic, external auditory canals are patent EYES: Extraocular muscles are intact, pupil are equally round and reactive to light and accommodation MUSCULOSKELETAL: Well developed , well nourished, good range of motion ENDOCRINE: No thyromegaly was palpated LYMPHATICS: No cervical chain or axillary nodes were noted HEMATOPOIETIC: No bruising NECK: Supple, no JVD, no thyromegaly was noted LUNGS: Clear to auscultation in all lung murry without rhonchi or wheezing HEART: RRR, S!, S2 present. Peripheral pulses intact, no obvious murmurs noted ABDOMEN: Soft, nontender. Positive bowel sounds, no organomegaly, normal bowel sounds EXTREMITIES: Without clubbing, cyanosis, or edema. Pedal pulses intact. Negative Homans sign NEUROLOGIC: Normal speech and tone. A&O x 3, moves all extremities, no obvious focal deficits PSYCHIATRIC: Normal affect, normal mood. Stable SKIN: No ulcerations or rashes, good skin turgor, no jaundice VASCULAR: Good capillary refill, neurovascular bundle appears to be intact Labs: Labs: Laboratory Tests Test 06/08/21 11:14 06/08/21 12:32 06/08/21 13:20 White Blood Count 6.6 x10^3/uL (4.0-11.0) Red Blood Count 5.10 x10^6/uL (3.50-5.40) Hemoglobin 13.1 g/dL (12.0-15.5) Hematocrit 41.6 % (36.0-47.0) Mean Corpuscular Volume 82 fL (79-100) Mean Corpuscular Hemoglobin 26 pg (25-35) Mean Corpuscular Hemoglobin Concent 32 g/dL (31-37) Red Cell Distribution Width 14.7 % (11.5-14.5) Platelet Count 265 x10^3/uL (140-400) Neutrophils (%) (Auto) 53 % (31-73) Lymphocytes (%) (Auto) 35 % (24-48) Monocytes (%) (Auto) 10 % (0-9) Eosinophils (%) (Auto) 2 % (0-3) Basophils (%) (Auto) 1 % (0-3) Neutrophils # (Auto) 3.5 x10^3/uL (1.8-7.7) Lymphocytes # (Auto) 2.3 x10^3/uL (1.0-4.8) Monocytes # (Auto) 0.6 x10^3/uL (0.0-1.1) Eosinophils # (Auto) 0.1 x10^3/uL (0.0-0.7) Basophils # (Auto) 0.0 x10^3/uL (0.0-0.2) Prothrombin Time 13.0 SEC (11.7-14.0) Prothromb Time International Ratio 1.0 (0.8-1.1) Activated Partial Thromboplast Time 32 SEC (24-38) Sodium Level 140 mmol/L (136-145) Potassium Level 4.4 mmol/L (3.5-5.1) Chloride Level 103 mmol/L (98-107) Carbon Dioxide Level 25 mmol/L (21-32) Anion Gap 12 (6-14) Blood Urea Nitrogen 24 mg/dL (7-20) Creatinine 2.3 mg/dL (0.6-1.0) Estimated GFR (Cockcroft-Gault) 25.4 BUN/Creatinine Ratio 10 (6-20) Glucose Level 197 mg/dL (70-99) Calcium Level 9.5 mg/dL (8.5-10.1) Total Bilirubin 0.6 mg/dL (0.2-1.0) Aspartate Amino Transf (AST/SGOT) 18 U/L (15-37) Alanine Aminotransferase (ALT/SGPT) 23 U/L (14-59) Alkaline Phosphatase 110 U/L (46-116) Troponin I High Sensitivity 280 ng/L (4-50) 630 ng/L (4-50) [id number]-Type Natriuretic Peptide 1112 pg/mL (0-124) Total Protein 8.6 g/dL (6.4-8.2) Albumin 4.2 g/dL (3.4-5.0) Albumin/Globulin Ratio 1.0 (1.0-1.7) Triglycerides Level 110 mg/dL (0-150) Cholesterol Level 297 mg/dL (0-200) LDL Cholesterol, Calculated 212 mg/dL (0-100) VLDL Cholesterol, Calculated 22 mg/dL (0-40) Non-HDL Cholesterol Calculated 234 mg/dL (0-129) HDL Cholesterol 63 mg/dL (40-60) Cholesterol/HDL Ratio 4.7 Lipase 68 U/L (73-393) Thyroid Stimulating Hormone (TSH) 0.762 uIU/mL (0.358-3.74) SARS-CoV-2 Antigen (Rapid) Negative (NEGATIVE) Laboratory Tests Test 06/08/21 11:14 06/08/21 12:32 06/08/21 13:20 White Blood Count 6.6 x10^3/uL (4.0-11.0) Red Blood Count 5.10 x10^6/uL (3.50-5.40) Hemoglobin 13.1 g/dL (12.0-15.5) Hematocrit 41.6 % (36.0-47.0) Mean Corpuscular Volume 82 fL (79-100) Mean Corpuscular Hemoglobin 26 pg (25-35) Mean Corpuscular Hemoglobin Concent 32 g/dL (31-37) Red Cell Distribution Width 14.7 % (11.5-14.5) Platelet Count 265 x10^3/uL (140-400) Neutrophils (%) (Auto) 53 % (31-73) Lymphocytes (%) (Auto) 35 % (24-48) Monocytes (%) (Auto) 10 % (0-9) Eosinophils (%) (Auto) 2 % (0-3) Basophils (%) (Auto) 1 % (0-3) Neutrophils # (Auto) 3.5 x10^3/uL (1.8-7.7) Lymphocytes # (Auto) 2.3 x10^3/uL (1.0-4.8) Monocytes # (Auto) 0.6 x10^3/uL (0.0-1.1) Eosinophils # (Auto) 0.1 x10^3/uL (0.0-0.7) Basophils # (Auto) 0.0 x10^3/uL (0.0-0.2) Prothrombin Time 13.0 SEC (11.7-14.0) Prothromb Time International Ratio 1.0 (0.8-1.1) Activated Partial Thromboplast Time 32 SEC (24-38) Sodium Level 140 mmol/L (136-145) Potassium Level 4.4 mmol/L (3.5-5.1) Chloride Level 103 mmol/L (98-107) Carbon Dioxide Level 25 mmol/L (21-32) Anion Gap 12 (6-14) Blood Urea Nitrogen 24 mg/dL (7-20) Creatinine 2.3 mg/dL (0.6-1.0) Estimated GFR (Cockcroft-Gault) 25.4 BUN/Creatinine Ratio 10 (6-20) Glucose Level 197 mg/dL (70-99) Calcium Level 9.5 mg/dL (8.5-10.1) Total Bilirubin 0.6 mg/dL (0.2-1.0) Aspartate Amino Transf (AST/SGOT) 18 U/L (15-37) Alanine Aminotransferase (ALT/SGPT) 23 U/L (14-59) Alkaline Phosphatase 110 U/L (46-116) Troponin I High Sensitivity 280 ng/L (4-50) 630 ng/L (4-50) [id number]-Type Natriuretic Peptide 1112 pg/mL (0-124) Total Protein 8.6 g/dL (6.4-8.2) Albumin 4.2 g/dL (3.4-5.0) Albumin/Globulin Ratio 1.0 (1.0-1.7) Triglycerides Level 110 mg/dL (0-150) Cholesterol Level 297 mg/dL (0-200) LDL Cholesterol, Calculated 212 mg/dL (0-100) VLDL Cholesterol, Calculated 22 mg/dL (0-40) Non-HDL Cholesterol Calculated 234 mg/dL (0-129) HDL Cholesterol 63 mg/dL (40-60) Cholesterol/HDL Ratio 4.7 Lipase 68 U/L (73-393) Thyroid Stimulating Hormone (TSH) 0.762 uIU/mL (0.358-3.74) SARS-CoV-2 Antigen (Rapid) Negative (NEGATIVE) Justifications for Admission Other Justification CINTHIA LAMBERT MD Jun 08, 2021 15:29
[2021-06-08] MEDS: SUCRALFATE 1 GM TABLET. PO SCH ×2 (17:00→21:42)
--- NOTE | 2021-06-08 17:02 | NUR ---
Transfer per cart from ER after CP intermittent during night then persistent and unrelieved in the am 06/08. EMS to ER w 1S/L nitro followed by NTG paste to L chest area. Reports" NO PAIN "after paste. Continues to denie pain at this time. Continued on flow sheets.
[2021-06-08] MEDS ORDERED: SIMVASTATIN 40 MG TABLET. PO SCH (21:00)
[2021-06-08] MEDS: FAMOTIDINE 20 MG TABLET. PO SCH (21:42)
[2021-06-08] MEDS: ALPRAZolam 0.5 MG TABLET PO SCH (21:42)
[2021-06-08] MEDS: ATORVASTATIN CALCIUM 40 MG TABLET. PO SCH (21:42)
[2021-06-08 21:43] LABS: BILIRUBIN,URINE NEGATIVE (NEG); CLARITY,URINE CLEAR; COLOR,URINE YELLOW; NITRITE,URINE NEGATIVE (NEG); PH,URINE 5.5 (<5.0-8.0); PROTEIN,URINE NEGATIVE (NEG-TRACE); UROBILINOGEN,URINE 0.2 mg/dL (0.2 mg/dL)
[2021-06-08 21:45] LABS: BACTERIA,URINE FEW /HPF (0-FEW); RBC,URINE 0 /HPF (0-2)
[2021-06-08 21:48] LABS: BARBITURATES NEG (NEG); BENZODIAZEPINES POS (NEG); CANNABINOIDS NEG (NEG); COCAINE NEG (NEG); METHADONE NEG (NEG); OPIATES NEG (NEG); PHENCYCLIDINE NEG (NEG)
[2021-06-08 21:51] LABS: AMPHETAMINE/METHAMPHETAMINE NEG (NEG)
[2021-06-08] MEDS: IV NORMAL SALINE 1000ML BAG 1,000 ML IV SCH (21:55)
--- NOTE | 2021-06-08 22:10 | NUR ---
Aware of NPO status after this midnight pending am cath time. Inadvertent consult w correction to Dr Duncan from [facility]. Order changes noted. Continue POC
[2021-06-09] VITALS (14 sets, daily range): BP systolic 109–147; BP diastolic 51–75
[2021-06-09] MEDS: ACETAMINOPHEN 325 MG TABLET. PO PRN (03:44)
[2021-06-09 04:54] LABS: HEMATOCRIT 34.6 % (36.0-47.0); RED BLOOD COUNT 4.2 x10^6/uL (3.50-5.40); RED CELL DISTRIBUTION WIDTH 14.7 % (11.5-14.5); WHITE BLOOD COUNT 6.1 x10^3/uL (4.0-11.0)
[2021-06-09] MEDS: NITROGLYCERIN OINT 1 GM PACKET. TP SCH ×3 (05:22→18:15)
[2021-06-09 05:28] LABS: ALBUMIN/GLOBULIN RATIO 0.8 (1.0-1.7); CALCIUM 8.8 mg/dL (8.5-10.1); CREATININE 1.9 mg/dL (0.6-1.0); GFR 31.6; POTASSIUM 4.1 mmol/L (3.5-5.1); TOTAL BILIRUBIN 0.5 mg/dL (0.2-1.0); TOTAL PROTEIN 6.8 g/dL (6.4-8.2)
--- NOTE | 2021-06-09 09:22 | PDOC2 ---
CONSULT Date of Consult Date of Consult DATE: 06/09/21 TIME: 09:18 Reason for Consult Reason for Consult: SVETLANA , needing C Source Source: Chart review, Patient History of Present Illness Reason for Visit: Patient is a 71-year-old AA female admitted for complains of chest pain. Reports that she has been having stabbing left chest pain intermittent started Saturday and worse at presentation . This is associated with indigestion, diaphoresis and SOA. No orthopnea or PND. She has been having exertional SOA as well, has stairs at home and stopping in between to catch her breath. No vomiting, fever or chills. She had fall first week of May but no apparent injury and she missed a step otherwise no syncopal spell. She is vaccinated for covid-19. She reports that she has had chest pain for "years." She underwent EGD in 2019 . She denies any diarrhea. No abdominal pain . Denies any urinary complaints- reports good UOP, No dysuria , hematuria. No Kidney stones She has Dx of CKD - follows with Dr Roche @ [facility] [place], she reports she was told she has CKD stage 3 . Cannot recall any other details , last appt 2 years back- states zeke not get fu appt letter from the office Currently denies any complaints. Sitting comfortably in chair. Denies any urinary complaints . Scheduled for Heart cath this afternoon Past Medical History Cardiovascular: CAD, HTN, Hyperlipidemia Pulmonary: Other (ALINA CPAP hs) GI: GERD, Other (hiatal hernia) Psych: Anxiety Musculoskeletal: Osteoarthritis Renal/: UTI Past Surgical History Past Surgical History: Arthroscopy (RTC repair), Total knee replacement (bilateral), Hysterectomy, Other (PCI 1994) Social History Quit ALCOHOL: none Drugs: None Lives: with Family Current Problem List Problem List Problems Medical Problems: (1) NSTEMI (non-ST elevated myocardial infarction) Status: Acute Current Medications Current Medications Current Medications Nitroglycerin (Nitrostat) 0.4 mg PRN Q5MIN PRN SL CHEST PAIN Last administered on 06/08/21at 12:24; Start 06/08/21 at 11:15 Fentanyl Citrate (Fentanyl 2ml Vial) 50 mcg 1X ONCE IVP Last administered on 06/08/21at 11:30; Start 06/08/21 at 11:30; Stop 06/08/21 at 11:31; Status DC Aspirin (Aspirin Chewable) 324 mg 1X ONCE PO Last administered on 06/08/21at 11:30; Start 06/08/21 at 11:30; Stop 06/08/21 at 11:31; Status DC Famotidine (Pepcid Vial) 20 mg 1X ONCE IVP Last administered on 06/08/21at 11:30; Start 06/08/21 at 11:30; Stop 06/08/21 at 11:31; Status DC Labetalol HCl (Normodyne Iv Push) 20 mg PRN Q2HRS PRN IVP SBP>170 or DBP>110; Start 06/08/21 at 12:30 Aspirin (Ecotrin) 81 mg DAILY PO ; Start 06/09/21 at 09:00 Metoprolol Succinate (Toprol Xl) 50 mg DAILY PO Last administered on 06/08/21at 13:00; Start 06/08/21 at 13:00 Simvastatin (Zocor) 40 mg QHS PO ; Start 06/08/21 at 21:00; Stop 06/08/21 at 14:15; Status DC Multi-Ingredient Mouthwash/Gargle (Gi Cocktail) 20 ml PRN QID PRN PO CHEST PAIN; Start 06/08/21 at 13:15 Heparin Sodium/ Dextrose 250 ml @ 10 mls/hr CONT PRN IV PER PROTOCOL Last administered on 06/08/21at 13:18; Start 06/08/21 at 13:00 Heparin Sodium (Porcine) (Heparin Sodium) 3,000 unit PRN Q6HRS PRN IV FOR UFH LEVEL LESS THAN 0.2; Start 06/08/21 at 13:00 Nitroglycerin (Nitro-Bid Oint) 1 inch Q6HRS TP Last administered on 06/09/21at 05:22; Start 06/08/21 at 13:00 Sodium Chloride 1,000 ml @ 75 mls/hr 1X ONCE IV Last administered on 06/08/21at 13:00; Start 06/08/21 at 13:00; Stop 06/09/21 at 02:19; Status DC Atorvastatin Calcium (Lipitor) 40 mg QHS PO Last administered on 06/08/21at 21:42; Start 06/08/21 at 21:00 Alprazolam (Xanax) 0.5 mg BID PO Last administered on 06/08/21at 21:42; Start 06/08/21 at 21:00 Citalopram Hydrobromide (CeleXA) 20 mg DAILY PO ; Start 06/09/21 at 09:00 Famotidine (Pepcid) 20 mg BID PO Last administered on 06/08/21at 21:42; Start 06/08/21 at 21:00 Sucralfate (Carafate) 1 gm QID PO Last administered on 06/08/21at 21:42; Start 06/08/21 at 17:00 Fluticasone Propionate (Flonase) 2 spray DAILY NS ; Start 06/09/21 at 09:00 Sodium Chloride 1,000 ml @ 75 mls/hr [id number] IV Last administered on 06/08/21at 21:55; Start 06/08/21 at 21:45 Acetaminophen (Tylenol) 650 mg PRN Q6HRS PRN PO MILD PAIN / TEMP > 100.3'F Last administered on 06/09/21at 03:44; Start 06/09/21 at 03:45 Active Scripts Active Carafate (Sucralfate) 1 Gm Tablet 1 Tab PO QID 30 Days Percocet 5-325 Mg Tablet (Oxycodone/Acetaminophen) 1 Each Tablet 1 Tab PO PRN Q4HRS PRN 7 Days Pepcid (Famotidine) 20 Mg Tablet 20 Mg PO BID Reported Celebrex (Celecoxib) 200 Mg Capsule 2 Cap PO DAILY Vesicare (Solifenacin Succinate) 10 Mg Tablet 10 Mg PO DAILY Flonase Allergy Relief (Fluticasone Propionate) 9.9 Ml [place].susp 2 Sprays NS DAILY Hydrocodone-Apap 7.5-325 (Hydrocodone Bit/Acetaminophen) 1 Each Tablet 1 Tab PO PRN Q6HRS PRN Xanax (Alprazolam) 0.5 Mg Tablet 0.5 Mg PO PRN Q4HRS PRN Aspir 81 (Aspirin) 81 Mg Tablet.dr 81 Mg PO DAILY Enalapril Maleate 20 Mg Tablet 20 Mg PO DAILY Citalopram Hbr (Citalopram Hydrobromide) 20 Mg Tablet 20 Mg PO DAILY Simvastatin 40 Mg Tablet 40 Mg PO DAILY Alprazolam 0.5 Mg Tablet 0.5 Mg PO BID Metoprolol Succinate ( Xl ) (Metoprolol Succinate) 25 Mg Tab.er.24h 50 Mg PO DAILY Allergies Allergies: Coded Allergies: No Known Drug Allergies (Unverified , 06/08/21) ROS Review of System As per HPI, rst of the ROS is negative Physical Exam Physical Exam General: Alert, Oriented X3, Cooperative, No acute distress HEENT: PERRLA.OM moist Neck Supple Lungs: Clear to auscultation, Non labored Heart: RRR, no murmurs Extremities: No edema, No cyanosis Skin: No significant lesion, No rash Neuro: Normal speech, Normal tone, Cranial nerves 3-12 NL Psych/Mental Status: Mental status NL, Mood NL No Purcell, No CVA or SP tenderness Vital Signs Vital Signs Date Time Temp Pulse Resp B/P (MAP) Pulse Ox O2 Delivery O2 Flow Rate FiO2 06/09/21 05:22 73 126/65 06/09/21 04:00 97.8 16 69 Room Air 97.8 Assessment & Plan SVETLANA on CKD- Vasomotor / Cardiorenal , Improving renal function . Recent admn in Apr with SVETLANA Cr 2.4 --> Dced at 1.8 Rcd IV contrast for CT on 06/08 Renal US reported unremarkable at recent admission ; Mild renal atrophy on CT with IV contrast 06/08 . UA unremarkable Supportive care, maintain hydration , avoid Nephtoxins, strict I/O. Monitor daily labs for fu of ELI after heart cath . Discussed with patient risk of ELI . CKD stage 3 B- based on PMC records Cr 1.4-1.6 (), . Obtain records from her PCP and [facility] Chest pain: POA -NSTEMI: sinus tachycardia but no acute EKG changes. On Heparin drip. Scheduled for [facility] later today CAD: PTCA 1994 HTN urgency POA- BP stable. Card managing Labs Labs Laboratory Tests Test 06/08/21 11:14 06/08/21 12:32 06/08/21 13:20 06/08/21 21:30 White Blood Count 6.6 x10^3/uL (4.0-11.0) Red Blood Count 5.10 x10^6/uL (3.50-5.40) Hemoglobin 13.1 g/dL (12.0-15.5) Hematocrit 41.6 % (36.0-47.0) Mean Corpuscular Volume 82 fL (79-100) Mean Corpuscular Hemoglobin 26 pg (25-35) Mean Corpuscular Hemoglobin Concent 32 g/dL (31-37) Red Cell Distribution Width 14.7 % (11.5-14.5) Platelet Count 265 x10^3/uL (140-400) Neutrophils (%) (Auto) 53 % (31-73) Lymphocytes (%) (Auto) 35 % (24-48) Monocytes (%) (Auto) 10 % (0-9) Eosinophils (%) (Auto) 2 % (0-3) Basophils (%) (Auto) 1 % (0-3) Neutrophils # (Auto) 3.5 x10^3/uL (1.8-7.7) Lymphocytes # (Auto) 2.3 x10^3/uL (1.0-4.8) Monocytes # (Auto) 0.6 x10^3/uL (0.0-1.1) Eosinophils # (Auto) 0.1 x10^3/uL (0.0-0.7) Basophils # (Auto) 0.0 x10^3/uL (0.0-0.2) Prothrombin Time 13.0 SEC (11.7-14.0) Prothromb Time International Ratio 1.0 (0.8-1.1) Activated Partial Thromboplast Time 32 SEC (24-38) Sodium Level 140 mmol/L (136-145) Potassium Level 4.4 mmol/L (3.5-5.1) Chloride Level 103 mmol/L (98-107) Carbon Dioxide Level 25 mmol/L (21-32) Anion Gap 12 (6-14) Blood Urea Nitrogen 24 mg/dL (7-20) Creatinine 2.3 mg/dL (0.6-1.0) Estimated GFR (Cockcroft-Gault) 25.4 BUN/Creatinine Ratio 10 (6-20) Glucose Level 197 mg/dL (70-99) Hemoglobin A1c 6.0 % (4.8-5.6) Calcium Level 9.5 mg/dL (8.5-10.1) Total Bilirubin 0.6 mg/dL (0.2-1.0) Aspartate Amino Transf (AST/SGOT) 18 U/L (15-37) Alanine Aminotransferase (ALT/SGPT) 23 U/L (14-59) Alkaline Phosphatase 110 U/L (46-116) Troponin I High Sensitivity 280 ng/L (4-50) 630 ng/L (4-50) [id number] Natriuretic Peptide 1112 pg/mL (0-124) Total Protein 8.6 g/dL (6.4-8.2) Albumin 4.2 g/dL (3.4-5.0) Albumin/Globulin Ratio 1.0 (1.0-1.7) Triglycerides Level 110 mg/dL (0-150) Cholesterol Level 297 mg/dL (0-200) LDL Cholesterol, Calculated 212 mg/dL (0-100) VLDL Cholesterol, Calculated 22 mg/dL (0-40) Non-HDL Cholesterol Calculated 234 mg/dL (0-129) HDL Cholesterol 63 mg/dL (40-60) Cholesterol/HDL Ratio 4.7 Lipase 68 U/L (73-393) Thyroid Stimulating Hormone (TSH) 0.762 uIU/mL (0.358-3.74) SARS-CoV-2 Antigen (Rapid) Negative (NEGATIVE) Urine Collection Type Unknown Urine Color Yellow Urine Clarity Clear Urine pH 5.5 (<5.0-8.0) Urine Specific Ray 1.015 (1.000-1.030) Urine Protein Negative mg/dL (NEG-TRACE) Urine Glucose (UA) Negative mg/dL (NEG) Urine Ketones (Stick) Negative mg/dL (NEG) Urine Blood Negative (NEG) Urine Nitrite Negative (NEG) Urine Bilirubin Negative (NEG) Urine Urobilinogen Dipstick 0.2 mg/dL (0.2 mg/dL) Urine Leukocyte Esterase Trace (NEG) Urine RBC 0 /HPF (0-2) Urine WBC 1-4 /HPF (0-4) Urine Squamous Epithelial Cells Mod /LPF Urine Bacteria Few /HPF (0-FEW) Urine Mucus Slight /LPF Urine Opiates Screen Neg (NEG) Urine Methadone Screen Neg (NEG) Urine Barbiturates Neg (NEG) Urine Phencyclidine Screen Neg (NEG) Urine Amphetamine/Methamphetamine Neg (NEG) Urine Benzodiazepines Screen Pos (NEG) Urine Cocaine Screen Neg (NEG) Urine Cannabinoids Screen Neg (NEG) Urine Ethyl Alcohol Neg (NEG) Test 06/08/21 22:35 06/09/21 04:00 Heparin Anti-Xa Act, Unfractionated 0.57 IU/mL (0.30-0.70) 0.59 IU/mL (0.30-0.70) Troponin I High Sensitivity 3496 ng/L (4-50) White Blood Count 6.1 x10^3/uL (4.0-11.0) Red Blood Count 4.20 x10^6/uL (3.50-5.40) Hemoglobin 11.0 g/dL (12.0-15.5) Hematocrit 34.6 % (36.0-47.0) Mean Corpuscular Volume 82 fL (79-100) Mean Corpuscular Hemoglobin 26 pg (25-35) Mean Corpuscular Hemoglobin Concent 32 g/dL (31-37) Red Cell Distribution Width 14.7 % (11.5-14.5) Platelet Count 210 x10^3/uL (140-400) Sodium Level 139 mmol/L (136-145) Potassium Level 4.1 mmol/L (3.5-5.1) Chloride Level 107 mmol/L (98-107) Carbon Dioxide Level 25 mmol/L (21-32) Anion Gap 7 (6-14) Blood Urea Nitrogen 21 mg/dL (7-20) Creatinine 1.9 mg/dL (0.6-1.0) Estimated GFR (Cockcroft-Gault) 31.6 BUN/Creatinine Ratio 11 (6-20) Glucose Level 105 mg/dL (70-99) Calcium Level 8.8 mg/dL (8.5-10.1) Total Bilirubin 0.5 mg/dL (0.2-1.0) Aspartate Amino Transf (AST/SGOT) 37 U/L (15-37) Alanine Aminotransferase (ALT/SGPT) 15 U/L (14-59) Alkaline Phosphatase 76 U/L (46-116) Total Protein 6.8 g/dL (6.4-8.2) Albumin 3.0 g/dL (3.4-5.0) Albumin/Globulin Ratio 0.8 (1.0-1.7) Laboratory Tests Test 06/08/21 11:14 06/08/21 12:32 06/08/21 13:20 06/08/21 21:30 White Blood Count 6.6 x10^3/uL (4.0-11.0) Red Blood Count 5.10 x10^6/uL (3.50-5.40) Hemoglobin 13.1 g/dL (12.0-15.5) Hematocrit 41.6 % (36.0-47.0) Mean Corpuscular Volume 82 fL (79-100) Mean Corpuscular Hemoglobin 26 pg (25-35) Mean Corpuscular Hemoglobin Concent 32 g/dL (31-37) Red Cell Distribution Width 14.7 % (11.5-14.5) Platelet Count 265 x10^3/uL (140-400) Neutrophils (%) (Auto) 53 % (31-73) Lymphocytes (%) (Auto) 35 % (24-48) Monocytes (%) (Auto) 10 % (0-9) Eosinophils (%) (Auto) 2 % (0-3) Basophils (%) (Auto) 1 % (0-3) Neutrophils # (Auto) 3.5 x10^3/uL (1.8-7.7) Lymphocytes # (Auto) 2.3 x10^3/uL (1.0-4.8) Monocytes # (Auto) 0.6 x10^3/uL (0.0-1.1) Eosinophils # (Auto) 0.1 x10^3/uL (0.0-0.7) Basophils # (Auto) 0.0 x10^3/uL (0.0-0.2) Prothrombin Time 13.0 SEC (11.7-14.0) Prothromb Time International Ratio 1.0 (0.8-1.1) Activated Partial Thromboplast Time 32 SEC (24-38) Sodium Level 140 mmol/L (136-145) Potassium Level 4.4 mmol/L (3.5-5.1) Chloride Level 103 mmol/L (98-107) Carbon Dioxide Level 25 mmol/L (21-32) Anion Gap 12 (6-14) Blood Urea Nitrogen 24 mg/dL (7-20) Creatinine 2.3 mg/dL (0.6-1.0) Estimated GFR (Cockcroft-Gault) 25.4 BUN/Creatinine Ratio 10 (6-20) Glucose Level 197 mg/dL (70-99) Hemoglobin A1c 6.0 % (4.8-5.6) Calcium Level 9.5 mg/dL (8.5-10.1) Total Bilirubin 0.6 mg/dL (0.2-1.0) Aspartate Amino Transf (AST/SGOT) 18 U/L (15-37) Alanine Aminotransferase (ALT/SGPT) 23 U/L (14-59) Alkaline Phosphatase 110 U/L (46-116) Troponin I High Sensitivity 280 ng/L (4-50) 630 ng/L (4-50) [id number]-Type Natriuretic Peptide 1112 pg/mL (0-124) Total Protein 8.6 g/dL (6.4-8.2) Albumin 4.2 g/dL (3.4-5.0) Albumin/Globulin Ratio 1.0 (1.0-1.7) Triglycerides Level 110 mg/dL (0-150) Cholesterol Level 297 mg/dL (0-200) LDL Cholesterol, Calculated 212 mg/dL (0-100) VLDL Cholesterol, Calculated 22 mg/dL (0-40) Non-HDL Cholesterol Calculated 234 mg/dL (0-129) HDL Cholesterol 63 mg/dL (40-60) Cholesterol/HDL Ratio 4.7 Lipase 68 U/L (73-393) Thyroid Stimulating Hormone (TSH) 0.762 uIU/mL (0.358-3.74) SARS-CoV-2 Antigen (Rapid) Negative (NEGATIVE) Urine Collection Type Unknown Urine Color Yellow Urine Clarity Clear Urine pH 5.5 (<5.0-8.0) Urine Specific Ray 1.015 (1.000-1.030) Urine Protein Negative mg/dL (NEG-TRACE) Urine Glucose (UA) Negative mg/dL (NEG) Urine Ketones (Stick) Negative mg/dL (NEG) Urine Blood Negative (NEG) Urine Nitrite Negative (NEG) Urine Bilirubin Negative (NEG) Urine Urobilinogen Dipstick 0.2 mg/dL (0.2 mg/dL) Urine Leukocyte Esterase Trace (NEG) Urine RBC 0 /HPF (0-2) Urine WBC 1-4 /HPF (0-4) Urine Squamous Epithelial Cells Mod /LPF Urine Bacteria Few /HPF (0-FEW) Urine Mucus Slight /LPF Urine Opiates Screen Neg (NEG) Urine Methadone Screen Neg (NEG) Urine Barbiturates Neg (NEG) Urine Phencyclidine Screen Neg (NEG) Urine Amphetamine/Methamphetamine Neg (NEG) Urine Benzodiazepines Screen Pos (NEG) Urine Cocaine Screen Neg (NEG) Urine Cannabinoids Screen Neg (NEG) Urine Ethyl Alcohol Neg (NEG) Test 06/08/21 22:35 06/09/21 04:00 Heparin Anti-Xa Act, Unfractionated 0.57 IU/mL (0.30-0.70) 0.59 IU/mL (0.30-0.70) Troponin I High Sensitivity 3496 ng/L (4-50) White Blood Count 6.1 x10^3/uL (4.0-11.0) Red Blood Count 4.20 x10^6/uL (3.50-5.40) Hemoglobin 11.0 g/dL (12.0-15.5) Hematocrit 34.6 % (36.0-47.0) Mean Corpuscular Volume 82 fL (79-100) Mean Corpuscular Hemoglobin 26 pg (25-35) Mean Corpuscular Hemoglobin Concent 32 g/dL (31-37) Red Cell Distribution Width 14.7 % (11.5-14.5) Platelet Count 210 x10^3/uL (140-400) Sodium Level 139 mmol/L (136-145) Potassium Level 4.1 mmol/L (3.5-5.1) Chloride Level 107 mmol/L (98-107) Carbon Dioxide Level 25 mmol/L (21-32) Anion Gap 7 (6-14) Blood Urea Nitrogen 21 mg/dL (7-20) Creatinine 1.9 mg/dL (0.6-1.0) Estimated GFR (Cockcroft-Gault) 31.6 BUN/Creatinine Ratio 11 (6-20) Glucose Level 105 mg/dL (70-99) Calcium Level 8.8 mg/dL (8.5-10.1) Total Bilirubin 0.5 mg/dL (0.2-1.0) Aspartate Amino Transf (AST/SGOT) 37 U/L (15-37) Alanine Aminotransferase (ALT/SGPT) 15 U/L (14-59) Alkaline Phosphatase 76 U/L (46-116) Total Protein 6.8 g/dL (6.4-8.2) Albumin 3.0 g/dL (3.4-5.0) Albumin/Globulin Ratio 0.8 (1.0-1.7) Review All relevant outside records, renal labs, imaging studies, telemetry/EKG's were reviewed. Images Images Chest, abdomen and pelvis CT with intravenous contrast. HISTORY: Pain after EGD. TECHNIQUE: Computed tomographic images of the chest, abdomen and pelvis were obtained following the administration of intravenous contrast. Multiplanar reformatting was performed. *One or more of the following individualized dose reduction techniques were utilized for this examination: 1. Automated exposure control. 2. Adjustment of the mA and/or kV according to patient size. 3. Use of iterative reconstruction technique. COMPARISON: None. FINDINGS: Chest: The heart is normal in size. There is coronary artery calcification. The aorta is normal in caliber. There is aortic and aortic branch vessel calcified atherosclerotic plaque. There is no mediastinal or hilar lymphadenopathy. There is a moderate to large hiatal hernia. There is air and food bolus or mucus within the herniated stomach. There is no pneumothorax. There is no pleural effusion. There is mild emphysema and mild air trapping. There is bilateral infrahilar compressive atelectasis. There is no infiltrate. There is no suspicious pulmonary nodule. Abdomen and pelvis: No hepatic lesion is seen. The gallbladder, pancreas, spleen and adrenal glands are unremarkable. There is mild renal atrophy. There is no appendicitis. There is moderate colonic stool. There is colonic diverticulosis. There is no convincing diverticulitis. The bladder is unremarkable. The uterus is absent. There is aortic and aortic branch vessel atherosclerosis. There is no lymphadenopathy. There is no acute or suspicious osseous finding. IMPRESSION: 1. Moderate to large hiatal hernia containing a portion of the stomach. There is associated bilateral infrahilar compressive atelectasis. 2. Colonic diverticulosis. 3. Mild emphysema and bilateral air trapping. No consolidated infiltrate is seen. RAMONA MELVIN MD Jun 09, 2021 09:22
[2021-06-09] MEDS: FAMOTIDINE 20 MG TABLET. PO SCH ×2 (10:04→21:10)
[2021-06-09] MEDS: ASPIRIN ENTERIC COATED 81 MG TABLET.DR. PO SCH (10:04)
[2021-06-09] MEDS: CITALOPRAM 20 MG TABLET. PO SCH (10:05)
[2021-06-09] MEDS: ALPRAZolam 0.5 MG TABLET PO SCH ×2 (10:05→21:10)
[2021-06-09] MEDS: METOPROLOL SUCC 24HR ER 50 MG TAB.ER.24H. PO SCH (10:05)
[2021-06-09] MEDS: FLUTICASONE 50MCG/NASAL SPRAY 16GM BOTTLE. NS SCH (10:07)
[2021-06-09] MEDS: SUCRALFATE 1 GM TABLET. PO SCH ×4 (10:08→21:10)
[2021-06-09] MEDS: IV NORMAL SALINE 1000ML BAG 1,000 ML IV SCH (11:05)
[2021-06-09] MEDS ORDERED: fentaNYL PF VIAL 100 MCG/2 ML VIAL ONE (14:09)
[2021-06-09] MEDS ORDERED: MIDAZOLAM HCL/PF 2 MG/2 ML VIAL. ONE (14:09)
--- NOTE | 2021-06-09 14:13 | PDOC ---
[employer] PROGRESS NOTE Date of Service DOS: DATE: 06/09/21 TIME: 14:13 Vitals/I&O Vitals/I&O: Vital Signs Date Time Temp Pulse Resp B/P (MAP) Pulse Ox O2 Delivery O2 Flow Rate FiO2 06/09/21 11:00 71 18 111/69 (83) 99 Room Air 06/09/21 08:00 98.7 98.7 I & O 06/08/21 06/08/21 06/09/21 15:00 23:00 07:00 Intake Total 500 ml 1101 ml Output Total 300 ml 500 ml Balance 200 ml 601 ml Physical Exam General: Alert, Oriented X3, Cooperative, No acute distress Heart: Regular rate (sinus tachycardia), Normal S1, Normal S2, Other (3/6 systolic murmur to CHANDLER border) Lungs: Clear Abdomen: Soft, No tenderness Extremities: No cyanosis, No edema Skin: No breakdown, No significant lesion Labs Labs: Laboratory Tests Test 06/08/21 21:30 06/08/21 22:35 06/09/21 04:00 06/09/21 12:00 Urine Collection Type Unknown Urine Color Yellow Urine Clarity Clear Urine pH 5.5 (<5.0-8.0) Urine Specific [place] 1.015 (1.000-1.030) Urine Protein Negative mg/dL (NEG-TRACE) Urine Glucose (UA) Negative mg/dL (NEG) Urine Ketones (Stick) Negative mg/dL (NEG) Urine Blood Negative (NEG) Urine Nitrite Negative (NEG) Urine Bilirubin Negative (NEG) Urine Urobilinogen Dipstick 0.2 mg/dL (0.2 mg/dL) Urine Leukocyte Esterase Trace (NEG) Urine RBC 0 /HPF (0-2) Urine WBC 1-4 /HPF (0-4) Urine Squamous Epithelial Cells Mod /LPF Urine Bacteria Few /HPF (0-FEW) Urine Mucus Slight /LPF Urine Opiates Screen Neg (NEG) Urine Methadone Screen Neg (NEG) Urine Barbiturates Neg (NEG) Urine Phencyclidine Screen Neg (NEG) Urine Amphetamine/Methamphetamine Neg (NEG) Urine Benzodiazepines Screen Pos (NEG) Urine Cocaine Screen Neg (NEG) Urine Cannabinoids Screen Neg (NEG) Urine Ethyl Alcohol Neg (NEG) Heparin Anti-Xa Act, Unfractionated 0.57 IU/mL (0.30-0.70) 0.59 IU/mL (0.30-0.70) 0.59 IU/mL (0.30-0.70) Troponin I High Sensitivity 3496 ng/L (4-50) White Blood Count 6.1 x10^3/uL (4.0-11.0) Red Blood Count 4.20 x10^6/uL (3.50-5.40) Hemoglobin 11.0 g/dL (12.0-15.5) Hematocrit 34.6 % (36.0-47.0) Mean Corpuscular Volume 82 fL (79-100) Mean Corpuscular Hemoglobin 26 pg (25-35) Mean Corpuscular Hemoglobin Concent 32 g/dL (31-37) Red Cell Distribution Width 14.7 % (11.5-14.5) Platelet Count 210 x10^3/uL (140-400) Sodium Level 139 mmol/L (136-145) Potassium Level 4.1 mmol/L (3.5-5.1) Chloride Level 107 mmol/L (98-107) Carbon Dioxide Level 25 mmol/L (21-32) Anion Gap 7 (6-14) Blood Urea Nitrogen 21 mg/dL (7-20) Creatinine 1.9 mg/dL (0.6-1.0) Estimated GFR (Cockcroft-Gault) 31.6 BUN/Creatinine Ratio 11 (6-20) Glucose Level 105 mg/dL (70-99) Calcium Level 8.8 mg/dL (8.5-10.1) Total Bilirubin 0.5 mg/dL (0.2-1.0) Aspartate Amino Transf (AST/SGOT) 37 U/L (15-37) Alanine Aminotransferase (ALT/SGPT) 15 U/L (14-59) Alkaline Phosphatase 76 U/L (46-116) Total Protein 6.8 g/dL (6.4-8.2) Albumin 3.0 g/dL (3.4-5.0) Albumin/Globulin Ratio 0.8 (1.0-1.7) Assessment and Plan Assessmemt and Plan Problems Medical Problems: (1) NSTEMI (non-ST elevated myocardial infarction) Status: Acute Comment Review of Relevant I have reviewed the following items matilde (where applicable) has been applied. Medications: Current Medications Medications (Trade) Dose Ordered Sig/Jennifer Route PRN Reason Start Time Stop Time Status Last Admin Dose Admin Aspirin (Ecotrin) 81 mg DAILY PO 06/09/21 09:00 06/09/21 10:04 Atorvastatin Calcium (Lipitor) 40 mg QHS PO 06/08/21 21:00 06/08/21 21:42 Alprazolam (Xanax) 0.5 mg BID PO 06/08/21 21:00 06/09/21 10:05 Citalopram Hydrobromide (CeleXA) 20 mg DAILY PO 06/09/21 09:00 06/09/21 10:05 Famotidine (Pepcid) 20 mg BID PO 06/08/21 21:00 06/09/21 10:04 Sucralfate (Carafate) 1 gm QID PO 06/08/21 17:00 06/09/21 10:08 Fluticasone Propionate (Flonase) 2 spray DAILY NS 06/09/21 09:00 06/09/21 10:07 Sodium Chloride 1,000 ml @ 75 mls/hr [id number] IV 06/08/21 21:45 06/08/21 21:55 Acetaminophen (Tylenol) 650 mg PRN Q6HRS PRN PO MILD PAIN / TEMP > 100.3'F 06/09/21 03:45 06/09/21 03:44 Justifications for Admission Other Justification CINTHIA LAMBERT MD Jun 09, 2021 14:13
[2021-06-09] MEDS ORDERED: IODIXANOL 320 MG/ML 100 ML VIAL. ONE (14:21)
[2021-06-09] MEDS ORDERED: HEPARIN for ARTERIAL LINE 1,500 ML ONE (14:22)
[2021-06-09] MEDS ORDERED: LIDOCAINE 1% Multi-Dose 20 ML VIAL. ONE (14:22)
--- NOTE | 2021-06-09 14:33 | NUR ---
SS following for discharge planning. SS reviewed pt chart and discussed with pt RN. Pt is from home and is currently on room air. COVID19 negative. Cardiology and Nephrology following. Pt having left heart cath today. SS will continue to follow for discharge planning. Addendum: 06/09/21 at 1554 by YUN GUZMAN SS SS received request for transfer to [facility]. SS contacted [facility] transfer team, ; fax [phone], and made request for transfer. Clinical phoned and faxed as requested. Currently awaiting acceptance decision at this time. Packet, ambulance form, and transfer form on the chart. RN notified.
--- NOTE | 2021-06-09 14:39 | PDOC ---
MODERATE SEDATION ASSESSMENT RISKS/ALTERNATIVES Risks/Alternatives Risks and alternatives of this type of sedation and procedure discussed with: RISK/ALTERNATIVES: Patient H & P ON CHART H & P H & P on chart and reviewed for co-morbid conditions and appropriate labs. H&P ON CHART: Yes STATUS PREG STATUS ASSESSED: Yes MEDS/ALLERGIES REVIEWED Meds/Allergies Reviewed Medications and Allergies including time and route of recently administered narcotics and sedatives. MEDS/ALLERGIES REVIEWED: Yes ASA RATING ASA RATING: II AIRWAY ASSESSMENT Airway Assessment Airway patency, oral function limitations, presence of caps, crowns, dentures, partials, and ability to extend neck assessed. AIRWAY ASSESSMENT: Yes MALLAMPATI SCORE MALLAMPATI SCORE: II PRE-SEDATION ASSESSMENT PRE-SEDATION ASSESSMENT: Yes AYSE LOCK MD Jun 09, 2021 14:39
[2021-06-09] MEDS ORDERED: NITROGLYCERIN 200 MCG/2 ML SYRINGE FOR CATH/VASC LAB. ONE (14:54)
[2021-06-09] MEDS ORDERED: HEPARIN for IV BOLUS 10,000 UNIT/10 ML VIAL. ONE (14:54)
[2021-06-09] MEDS ORDERED: VERAPAMIL 5 MG/2 ML VIAL. ONE (14:54)
[2021-06-09] MEDS ORDERED: CONTRAST GIVEN. MC PRN (15:00)
[2021-06-09] MEDS ORDERED: fentaNYL PF VIAL 100 MCG/2 ML VIAL IV ONE (15:00)
[2021-06-09] MEDS ORDERED: IODIXANOL 320 MG/ML 100 ML VIAL. IART ONE (15:00)
[2021-06-09] MEDS ORDERED: LIDOCAINE 1% Multi-Dose 20 ML VIAL. INJ ONE (15:00)
[2021-06-09] MEDS ORDERED: MIDAZOLAM HCL/PF 2 MG/2 ML VIAL. IV ONE (15:00)
[2021-06-09] MEDS ORDERED: NITROGLYCERIN 200 MCG/2 ML SYRINGE FOR CATH/VASC LAB. IART ONE (16:00)
[2021-06-09] MEDS ORDERED: VERAPAMIL 5 MG/2 ML VIAL. IART ONE (16:00)
[2021-06-09] MEDS ORDERED: HEPARIN for IV BOLUS 10,000 UNIT/10 ML VIAL. IART ONE (16:00)
--- NOTE | 2021-06-09 16:38 | CARD ---
MR#: [id number] Date of Study: 06/09/2021 Ordering Physician: JASS KELLOGG, Referring Physician: JASS KELLOGG Tech: Iesha Pereira RT(R) APPROVED REPORT Procedures Selective coronary angiogram Left heart catheterization The patient is a 71-year-old female with a history of chronic kidney disease who was admitted for an episode of chest pain. Patient's pain resolved with nitroglycerin and heparin. However her troponin elevated to greater than 1500 on a high sensitivity troponin test. In this setting we recommended a heart catheterization with possible intervention. Risks and benefits were discussed with the patien t. She agreed to proceed. After informed consent was obtained the patient was brought to the heart catheterization lab. The ar ea the right radial artery was prepared in usual manner with Betadine, sterile draping and local anes thetic. A quick cath device was used to enter the right radial artery after an acceptable Pollo's faustina t. A wire was placed a 6 Kitt[place] sheath placed over the wire. The standard mixture of heparin and an tispasm medications was administered. Using a J-wire a 6 [place] JL 3.5 diagnostic catheter was advan markel the ascending aorta. It was then used to engage the left system and sequential injections of austen ious views were obtained. Using an [id number] exchange a 6 Kitt[place] JR4 diagnostic catheter was adv anced the ascending aorta. It was used to engage the right coronary artery and sequential injections in various views were obtained. Following this a pigtail catheter was advanced the ascending aorta. It was then advanced to the left ventricle. Pressure measurements were obtained and pullback press ures were measured. No left ventriculogram was performed secondary the patient's elevated creatinine . At this time the patient was documented with three-vessel coronary disease including a left main l esion. The catheter was removed from the patient and sealed in the usual manner with a wristband. T he patient was continued on heparin. She was moved to the ICU. She had no immediate complications. Findings. Hemodynamics. LV pressures of 140/10/35. Aortic root pressure 138/74. Coronaries. The proximal vessels were calcified. Left main. The left main had a greater than 70% lesion. Left circumflex. The LAD had an ostial greater than 90% lesion and a mid 60% lesion. Left circumflex. The left circumflex had an ostial greater than 70% lesion with a mid lesion of 50%. Of note there were collaterals from the left system to the right coronary artery. Right coronary artery. The right coronary was a moderate size vessel. It had a proximal 98% lesion and a mid subtotal lesion. <Conclusion> Severe three-vessel coronary disease including a left main lesion. Elevated left ventricular end-diastolic pressure at 35 mmHg. Referral to cardiothoracic surgery for bypass surgery. Moderate sedation time of 60 minutes. Fluoroscopy time of 5.5 minutes. Dose of 40 2.5 GYcm2. Contrast of 63 cc of VISI All protective equipment and devices were used during the procedure. The patient was independently monitored through the procedure. Estimated blood loss was 20 cc. Signed by : Servando Williamson MD Electronically Approved : 06/09/2021 16:38:05
--- NOTE | 2021-06-09 18:00 | NUR ---
Spoke with Marco at [facility] transfer dept- pt will be transferred tomorrow- but if pt starts having chest pain to call transfer and they will have her emergently transferred to an ER bed, Dr Ayleen Jurado is the accepting CTS doctor. Pt has not reported and chest pain during [id number] shift. Updated both daughters on plan.
[2021-06-09] MEDS: ATORVASTATIN CALCIUM 40 MG TABLET. PO SCH (21:10)
[2021-06-09] MEDS ORDERED: diphenhydrAMINE HCL 25 MG CAPSULE PO PRN (21:15)
--- NOTE | 2021-06-09 23:17 | PDOC ---
[facility] PROGRESS NOTE Date of Service DOS: DATE: 06/09/21 TIME: 23:16 Vitals/I&O Vitals/I&O: Vital Signs Date Time Temp Pulse Resp B/P (MAP) Pulse Ox O2 Delivery O2 Flow Rate FiO2 06/09/21 21:00 70 22 147/75 (99) 100 Room Air 06/09/21 20:00 98.1 98.1 06/09/21 15:44 2.0 I & O 06/08/21 06/08/21 06/09/21 15:00 23:00 07:00 Intake Total 500 ml 1101 ml Output Total 300 ml 500 ml Balance 200 ml 601 ml Physical Exam General: Alert, Oriented X3, Cooperative, No acute distress Heart: Regular rate (sinus tachycardia), Normal S1, Normal S2, Other (3/6 systolic murmur to CHANDLER border) Lungs: Clear Abdomen: Soft, No tenderness Extremities: No cyanosis, No edema Skin: No breakdown, No significant lesion Labs Labs: Laboratory Tests Test 06/09/21 04:00 06/09/21 12:00 06/09/21 22:05 White Blood Count 6.1 x10^3/uL (4.0-11.0) Red Blood Count 4.20 x10^6/uL (3.50-5.40) Hemoglobin 11.0 g/dL (12.0-15.5) Hematocrit 34.6 % (36.0-47.0) Mean Corpuscular Volume 82 fL (79-100) Mean Corpuscular Hemoglobin 26 pg (25-35) Mean Corpuscular Hemoglobin Concent 32 g/dL (31-37) Red Cell Distribution Width 14.7 % (11.5-14.5) Platelet Count 210 x10^3/uL (140-400) Heparin Anti-Xa Act, Unfractionated 0.59 IU/mL (0.30-0.70) 0.59 IU/mL (0.30-0.70) 0.17 IU/mL (0.30-0.70) Sodium Level 139 mmol/L (136-145) Potassium Level 4.1 mmol/L (3.5-5.1) Chloride Level 107 mmol/L (98-107) Carbon Dioxide Level 25 mmol/L (21-32) Anion Gap 7 (6-14) Blood Urea Nitrogen 21 mg/dL (7-20) Creatinine 1.9 mg/dL (0.6-1.0) Estimated GFR (Cockcroft-Gault) 31.6 BUN/Creatinine Ratio 11 (6-20) Glucose Level 105 mg/dL (70-99) Calcium Level 8.8 mg/dL (8.5-10.1) Total Bilirubin 0.5 mg/dL (0.2-1.0) Aspartate Amino Transf (AST/SGOT) 37 U/L (15-37) Alanine Aminotransferase (ALT/SGPT) 15 U/L (14-59) Alkaline Phosphatase 76 U/L (46-116) Total Protein 6.8 g/dL (6.4-8.2) Albumin 3.0 g/dL (3.4-5.0) Albumin/Globulin Ratio 0.8 (1.0-1.7) Assessment and Plan Assessmemt and Plan Problems Medical Problems: (1) NSTEMI (non-ST elevated myocardial infarction) Status: Acute Comment Review of Relevant I have reviewed the following items matilde (where applicable) has been applied. Medications: Current Medications Medications (Trade) Dose Ordered Sig/Jennifer Route PRN Reason Start Time Stop Time Status Last Admin Dose Admin Aspirin (Ecotrin) 81 mg DAILY PO 06/09/21 09:00 06/09/21 10:04 Citalopram Hydrobromide (CeleXA) 20 mg DAILY PO 06/09/21 09:00 06/09/21 10:05 Fluticasone Propionate (Flonase) 2 spray DAILY NS 06/09/21 09:00 06/09/21 10:07 Acetaminophen (Tylenol) 650 mg PRN Q6HRS PRN PO MILD PAIN / TEMP > 100.3'F 06/09/21 03:45 06/09/21 03:44 Heparin Sodium/ Sodium Chloride (HEPARIN for ARTERIAL LINE FLUSH) 1,000 unit 1X ONCE IART 06/09/21 15:00 06/09/21 15:01 DC 06/09/21 15:41 Heparin Sodium/ Sodium Chloride (HEPARIN for ARTERIAL LINE FLUSH) 1,000 unit 1X ONCE IART 06/09/21 15:00 06/09/21 15:01 DC 06/09/21 15:41 Midazolam HCl (Versed) 2 mg 1X ONCE IV 06/09/21 15:00 06/09/21 15:01 DC 06/09/21 15:45 Fentanyl Citrate (Fentanyl 2ml Vial) 100 mcg 1X ONCE IV 06/09/21 15:00 06/09/21 15:01 DC 06/09/21 15:44 Iodixanol (Visipaque 320) 100 ml 1X ONCE IART 06/09/21 15:00 06/09/21 15:01 DC 06/09/21 15:42 Lidocaine HCl (Lidocaine 1% 20ml Vial) 20 ml 1X ONCE INJ 06/09/21 15:00 06/09/21 15:01 DC 06/09/21 15:43 Nitroglycerin (Nitroglycerin) 200 mcg 1X ONCE IART 06/09/21 16:00 06/09/21 16:02 DC 06/09/21 16:00 Verapamil HCl (Verapamil) 2.5 mg 1X ONCE IART 06/09/21 16:00 06/09/21 16:02 DC 06/09/21 16:00 Heparin Sodium (Porcine) (Heparin Sodium) 2,500 unit 1X ONCE IART 06/09/21 16:00 06/09/21 16:02 DC 06/09/21 16:00 Diphenhydramine HCl (Benadryl) 25 mg PRN Q6HRS PRN PO ITCHING 06/09/21 21:15 06/09/21 21:22 Justifications for Admission Other Justification CINTHIA LAMBERT MD Jun 09, 2021 23:17
[2021-06-10] VITALS (9 sets, daily range): BP systolic 104–140; BP diastolic 58–79
[2021-06-10] MEDS: NITROGLYCERIN OINT 1 GM PACKET. TP SCH ×2 (00:08→06:11)
[2021-06-10] MEDS: IV NORMAL SALINE 1000ML BAG 1,000 ML IV SCH (00:25)
[2021-06-10 05:07] LABS: CALCIUM 9.2 mg/dL (8.5-10.1); CREATININE 1.9 mg/dL (0.6-1.0); GFR 31.6; POTASSIUM 4.2 mmol/L (3.5-5.1)
[2021-06-10] MEDS: ACETAMINOPHEN 325 MG TABLET. PO PRN (06:14)
[2021-06-10] MEDS: SUCRALFATE 1 GM TABLET. PO SCH (08:20)
[2021-06-10] MEDS: FLUTICASONE 50MCG/NASAL SPRAY 16GM BOTTLE. NS SCH (08:20)
[2021-06-10] MEDS: ASPIRIN ENTERIC COATED 81 MG TABLET.DR. PO SCH (08:21)
[2021-06-10] MEDS: ALPRAZolam 0.5 MG TABLET PO SCH (08:21)
[2021-06-10] MEDS: METOPROLOL SUCC 24HR ER 50 MG TAB.ER.24H. PO SCH (08:22)
[2021-06-10] MEDS: CITALOPRAM 20 MG TABLET. PO SCH (08:22)
[2021-06-10] MEDS ORDERED: FAMOTIDINE 20 MG TABLET. PO SCH (09:00)
[2021-06-10] MEDS: NITROGLYCERIN SUBLINGUAL 0.4 MG BOTTLE OF 25. SL PRN (09:17)
--- NOTE | 2021-06-10 09:31 | NUR ---
0915 Pt complaining of chest discomfort, rating a 5 out of 10. Pt wanted to try the nitro to see if that helps. 0920 Pt states that the chest pain is reciding now at a 3. [address] [facility] and they have a bed ICU room 5. [facility] notified of transfer and documents faxed. Report called to Sheree at [facility] Daughter Gwen notified of transfer
--- NOTE | 2021-06-10 09:45 | PDOC ---
Renal-Progress Notes Subjective Notes Notes STILL HAVING OCC CHEST PAIN History of Present Illness Hx of present illness STABLE Vitals Vitals Vital Signs Date Time Temp Pulse Resp B/P (MAP) Pulse Ox O2 Delivery O2 Flow Rate FiO2 06/10/21 09:17 76 112/71 06/10/21 08:03 98.4 16 96 Room Air 98.4 06/09/21 15:44 2.0 Weight Weight [ ] I.O. Intake and Output Intake and Output 06/10/21 07:00 Intake Total 1958 ml Output Total 2000 ml Balance -42 ml IV Total 1958 ml Output Urine Total 2000 ml Labs Labs Laboratory Tests Test 06/09/21 12:00 06/09/21 22:05 06/10/21 04:45 Heparin Anti-Xa Act, Unfractionated 0.59 IU/mL (0.30-0.70) 0.17 IU/mL (0.30-0.70) 1.02 IU/mL (0.30-0.70) Sodium Level 140 mmol/L (136-145) Potassium Level 4.2 mmol/L (3.5-5.1) Chloride Level 108 mmol/L (98-107) Carbon Dioxide Level 23 mmol/L (21-32) Anion Gap 9 (6-14) Blood Urea Nitrogen 17 mg/dL (7-20) Creatinine 1.9 mg/dL (0.6-1.0) Estimated GFR (Cockcroft-Gault) 31.6 Glucose Level 98 mg/dL (70-99) Calcium Level 9.2 mg/dL (8.5-10.1) Micro Micro Microbiology 06/08/21 Urine Culture - Final, Complete Review of Systems Constitutional: yes: weakness, alert, oriented Ears/Nose/Throat: Yes: no symptom reported Pulmonary: Yes no symptom reported Cardiovascular: Yes chest pain Gastrointestional: Yes: no symptom reported Genitourinary: Yes: no symptom reported Musculoskeletal: Yes: no symptom reported Skin: Yes no symptom reported Psychiatric/Neurological: Yes: no symptom reported Endocrine: Yes: no symptom reported Physical Exam General Appearance: no apparent distress Skin: warm Respiratory: bilateral CTA Heart: S1S2 Abdomen: soft, bowel sounds present Genitourinary: bladder flat Extremities: pulses present, no edema Neurology: alert, oriented Musculoskeletal: Osteoarthritis Assessment Assessment IMP CHEST PAIN NSTEMI CKD STAGE 3B-CR STABLE AT 1.9 CAD HX WITH TRIPLE VESSEL DZ MALIGNANT HTN-IMPROVED GLUCOSE INTOLERANCE PLAN PT IN NEED OF CABG TRANSFER TO [facility] PLANNED FOR TODAY WILL NEED RENAL FOLLOW UP AT [facility] I WILL SIGN OFF TITA JETT MD Jun 10, 2021 09:45
--- NOTE | 2021-06-10 10:40 | NUR ---
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
== END 2021-06-10 10:30 | disposition short-term general hospital (02) | DRG 280 ==
LOC: ER 11:01 → 1 WEST ICU 12:28
PROVIDERS: ADMIT Student in an Organized Health Care Education/Training Program; ATTEND Student in an Organized Health Care Education/Training Program
PROC: 4A023N7 Measurement of Cardiac Sampling and Pressure, Left Heart, Percutaneous Approach (ICD-10-PCS; principal; 2021-06-09)
PROC: B2111ZZ Fluoroscopy of Multiple Coronary Arteries using Low Osmolar Contrast (ICD-10-PCS; 2021-06-09)
DX: I21.4 Non-ST elevation (NSTEMI) myocardial infarction (principal); N17.0 Acute kidney failure with tubular necrosis; J98.11 Atelectasis; E78.00 Pure hypercholesterolemia, unspecified; E78.5 Hyperlipidemia, unspecified; I16.0 Hypertensive urgency; I25.10 Atherosclerotic heart disease of native coronary artery without angina pectoris; J43.9 Emphysema, unspecified; K44.9 Diaphragmatic hernia without obstruction or gangrene; K57.30 Diverticulosis of large intestine without perforation or abscess without bleeding; N18.32 Chronic kidney disease, stage 3b; Z96.653 Presence of artificial knee joint, bilateral; Z20.822 Contact with and (suspected) exposure to COVID-19; F41.9 Anxiety disorder, unspecified; G47.33 Obstructive sleep apnea (adult) (pediatric); K21.9 Gastro-esophageal reflux disease without esophagitis; M19.90 Unspecified osteoarthritis, unspecified site; R73.9 Hyperglycemia, unspecified; Z87.891 Personal history of nicotine dependence; Z90.710 Acquired absence of both cervix and uterus; Z98.61 Coronary angioplasty status; I12.9 Hypertensive chronic kidney disease with stage 1 through stage 4 chronic kidney disease, or unspecified chronic kidney disease
CPT/HCPCS: 93458; 96365; 96375; 99285; G0269; 36415; 71045; 71250; 74176; 80048; 80053; 80061; 80307; 81001; 83036; 83690; 83880; 84443; 84484; 85025; 85027; 85520; 85610; 85730; 87086; 87426; 93005; 99152; 99153; C1894; J1644; J2250; J3010; J3490; J7030; Q9967; G0378; Q0163